=== PATIENT | female | born 1945 | race Caucasian/White ===

== ENCOUNTER → 2016-04-26 | Outpatient (CLI) | payer OTHER | LOC: MMPC 11:11 | PROVIDERS: ATTEND Internal Medicine | DX: F32.4 Major depressive disorder, single episode, in partial remission (principal); K21.9 Gastro-esophageal reflux disease without esophagitis; G47.33 Obstructive sleep apnea (adult) (pediatric); I10 Essential (primary) hypertension; E66.01 Morbid (severe) obesity due to excess calories; F51.01 Primary insomnia | CPT/HCPCS: 99214 ==

== ENCOUNTER → 2016-05-10 | Outpatient (CLI) | payer OTHER | LOC: MMPC 10:00 | PROVIDERS: ATTEND Podiatrist Foot & Ankle Surgery | DX: L85.0 Acquired ichthyosis (principal); L60.3 Nail dystrophy; E66.01 Morbid (severe) obesity due to excess calories; E11.9 Type 2 diabetes mellitus without complications | CPT/HCPCS: 11721 ×2; 99212; G0463 ==

== ENCOUNTER → 2016-05-22 | Outpatient (CLI) | payer OTHER | LOC: MMPC 10:00 | PROVIDERS: ATTEND Specialist | DX: I10 Essential (primary) hypertension (principal); I25.119 Atherosclerotic heart disease of native coronary artery with unspecified angina pectoris | CPT/HCPCS: 99213; G0463 ==

== ENCOUNTER → 2016-06-20 | Outpatient (CLI) | payer OTHER ==
--- NOTE | 2016-06-21 17:58 | DI ---
BILATERAL DIAGNOSTIC MAMMOGRAMS, 06/20/2016 2:28 PM: Clinical History: Breast cancer. Status post right lumpectomy and axillary node dissection for breast cancer in 2002. Prior Exam: 06/01/2013; 06/10/2014; 06/14/2015. Digital breast imaging of both breasts are performed. Exaggerated craniocaudal films are obtained. Breast tissue density is rated as being composed almost entirely of fatty tissue. The right breast is substantially smaller than the left breast secondary to the previous surgery. There is a focus of ar chitectural distortion in the upper outer quadrant posteriorly consistent with the previous lumpectom y. There is no evidence of recurrence of tumor. No new lesion is identified. No abnormal calcificatio ns are noted. Left contour, nipple, and lower axillary region are normal. The patient is status post axillary node dissection on the right side and there is indentation of the skin in the upper-outer qu adrant corresponding to the surgical scar. The right nipple is normal. Follow Up: One year. BIRADS Category: 2. Benign finding. Postsurgical scarring is present in the right upper-outer quadran t corresponding to the biopsy site. There is no evidence of recurrence of tumor. Reading: Benign finding.
== END ==
LOC: MAMMO 14:19
PROVIDERS: ATTEND Physician Assistant
DX: C50.411 Malignant neoplasm of upper-outer quadrant of right female breast (principal); Z98.890 Other specified postprocedural states
CPT/HCPCS: G0204

== ENCOUNTER → 2016-06-29 | Outpatient (CLI) | payer OTHER ==
[2016-06-29 10:42] LABS: BASOPHILS # (AUTO) 0.04 10*3/UL; BASOPHILS % (AUTO) 0.6 % (0-1); EOSINOPHILS % (AUTO) 3.5 % (0-8); HEMATOCRIT 34.3 % (37.0-47.0); HEMOGLOBIN 10.5 g/dL (12.0-16.0); IMM GRAN % (AUTO) 0.2 % (0-5); IMM GRAN# (AUTO) 0.01 10*3/UL; LYMPHOCYTES # (AUTO) 2.33 10*3/uL; LYMPHOCYTES % (AUTO) 36.8 % (10-50); MEAN CORPUSCULAR HEMOGLOBIN 26.7 PG (27-31); MEAN CORPUSCULAR HGB CONC 30.6 g/dL (33-37); MEAN PLATELET VOLUME 11.4 FL (7.4-12.2); MONOCYTES # (AUTO) 0.51 10*3/UL (0.3-0.8); MONOCYTES % (AUTO) 8.1 % (5-15); NEUTROPHILS # (AUTO) 3.22 10*3/UL; NEUTROPHILS % (AUTO) 50.8 % (50-80); RDW COEFFICIENT OF VARIATION 17.9 % (11.5-14.5); RED BLOOD COUNT 3.93 10^6/uL (4.20-5.40); WHITE BLOOD COUNT 6.33 10^3/uL (4.8-10.8)
[2016-06-29 10:43] LABS: HEMOGLOBIN A1C 8.18 % (4.2-6.0); MEAN BLOOD GLUCOSE (CALC) 186.394 mg/dL
[2016-06-29 10:45] LABS: PLATELET MORPHOLOGY COMMENT NORMAL MORPHOLOGY (NORM)
[2016-06-29 10:47] LABS: BILIRUBIN,TOTAL 0.4 mg/dL (0.3-1.2); BUN/CREATININE RATIO 18.57 (6-20); CREATININE 0.7 mg/dL (0.50-1.20); LDL CHOLESTEROL,CALCULATED 46.8 mg/dL; POTASSIUM 4.1 meq/L (3.8-5.2); TOTAL PROTEIN 7.4 g/dL (6.1-8.0)
[2016-06-29 11:20] LABS: CREATININE, URINE 66.8 MG/DL (15-500)
[2016-06-29 11:26] LABS: ERYTHROCYTE SEDIMENTATION RATE 16 MM/HR (0-20)
[2016-06-29 11:45] LABS: FREE T4 (FREE THYROXINE) 1.15 ng/dL (0.93-1.71)
== END ==
LOC: LAB 10:08
PROVIDERS: ATTEND Internal Medicine
DX: E11.9 Type 2 diabetes mellitus without complications (principal); Z79.4 Long term (current) use of insulin; E78.5 Hyperlipidemia, unspecified; E79.0 Hyperuricemia without signs of inflammatory arthritis and tophaceous disease; I10 Essential (primary) hypertension; E03.9 Hypothyroidism, unspecified; K50.90 Crohn's disease, unspecified, without complications
CPT/HCPCS: 36415; 80053; 80061; 82043; 82550; 83036; 84439; 84443; 84550; 85025; 85652

== ENCOUNTER → 2016-07-02 | Outpatient (CLI) | payer OTHER | LOC: MMPC 11:11 | PROVIDERS: ATTEND Internal Medicine | DX: E11.9 Type 2 diabetes mellitus without complications (principal); E03.9 Hypothyroidism, unspecified; D64.9 Anemia, unspecified | CPT/HCPCS: 99214; G0463 ==

== ENCOUNTER → 2016-07-06 | Outpatient (CLI) | payer OTHER | LOC: MMPC 10:00 | PROVIDERS: ATTEND Podiatrist Foot & Ankle Surgery | DX: E11.40 Type 2 diabetes mellitus with diabetic neuropathy, unspecified (principal); R60.0 Localized edema; L60.3 Nail dystrophy; E66.01 Morbid (severe) obesity due to excess calories | CPT/HCPCS: 11721 ×2; G0463 ==

== ENCOUNTER → 2016-07-24 | Outpatient (CLI) | payer OTHER | LOC: MMPC 10:00 | PROVIDERS: ATTEND Specialist | DX: I25.10 Atherosclerotic heart disease of native coronary artery without angina pectoris (principal); G47.33 Obstructive sleep apnea (adult) (pediatric); I10 Essential (primary) hypertension; E66.01 Morbid (severe) obesity due to excess calories; F41.1 Generalized anxiety disorder; E78.5 Hyperlipidemia, unspecified; E03.9 Hypothyroidism, unspecified; D64.9 Anemia, unspecified | CPT/HCPCS: 99212; G0463 ==

== ENCOUNTER 2016-08-10 17:07 | Emergency (ER) | payer OTHER ==
[2016-08-10] MEDS ORDERED: ONDANSETRON 4 MG/2 ML VIAL IVP ONE (17:22)
[2016-08-10] MEDS ORDERED: Sodium Chloride 0.9% 1,000 ML PRIMARY IV ONE (17:22)
[2016-08-10] MEDS ORDERED: KETOROLAC 15 MG/1 ML VIAL IVP ONE (17:22)
[2016-08-10 17:26] VITALS: RESP 16; TEMP 97.5
--- NOTE | 2016-08-10 17:29 | PDOC ---
Female Problem HPI - General Chief Complaint: Genitourinary Complaint Stated Complaint: right flank pain Date Seen by Provider: 08/10/16 Time Seen by Provider: 17:24 Source: POSITIVE: Patient Exam Limitations: POSITIVE: No limitations Nurse's Notes Reviewed & Considered: Yes - History of Present Illness Initial Comments: Patient comes in today with a chief complaint of right flank pain. Patient with right flank pain that has been going on for years and years. Her made her come in today because she was complaining of increasing pain today. She thinks that the reason her pain is gotten worse is because of change in the weather. In addition to the above upon questioning she states she is having shortness of breath and left-sided chest pain that is nonradiating. Her chest pain is described as sharp, and intermittent. Her right flank pain is described as sharp, intermittent, with crescendo decrescendo type quality. She states nothing makes her chest pain better or worse, she does have associated shortness of breath, no cough. She denies any fever chills or sweats, no nausea vomiting or diarrhea, she does have increased frequency of urination, but no dysuria or hematuria. She does have peripheral edema, and is presently on Lasix. She is diabetic, and is presently on Humulin and Lantus insulin. She takes lisinopril and sotalol. Further medications please see nurse's list. Body Location Affected: REPORTS: Chest, Back Timing: REPORTS: Constant, Getting Worse Duration: Unknown Severity: Moderate Quality: REPORTS: "Pain", Sharpness, Stabbing, Throbbing Location of Pain: REPORTS: Right, Flank Pain : REPORTS: Post-Menopausal Sexual History: REPORTS: Active Urinary Symptoms: REPORTS: Frequent Urination Similar Symptoms Previously: No Recent Care Received: REPORTS: Denies Any Prior Injuries Related to Current Complaint?: No - Patient Home Medications Home Medications: Home Medications Ascorbic Acid [Vitamin C] 1,000 mg PO QD 12/13/10 Acetaminophen [Tylenol] 1,000 mg PO PRN PRN 11/14/11 Folic Acid 1 mg ORAL QD #90 tab 04/11/12 Fluticasone Propionate [Flonase] 2 spr NASAL QHS #1 spr 06/17/13 Ipratropium [place] [Atrovent] 2 spr INASL 3-4XD PRN #1 bottle 06/29/13 Centrum Silver Ultra Women Tab 1 each PO DAILY tab 09/29/13 Meclizine HCl 25 mg PO QID PRN PRN 11/12/13 Tamoxifen Citrate 20 mg PO DAILY 11/12/13 Blood-Glucose Meter [Blood Glucose Monitor] 1 each QID #1 each 10/20/14 diphenhydrAMINE HCl [Benadryl] 1 cap PO PRN PRN 06/22/15 Aspirin 325 mg PO DAILY #30 06/24/15 Nitroglycerin SL Tab [Nitrostat SL Tab] 0.4 mg SL ASDIR #20 tab 07/01/15 Mupirocin Calcium [Bactroban] 1 applic TOPICAL BID #1 tube 11/16/15 Cyanocobalamin (Vitamin B-12) [Vitamin B12] 2,500 mcg PO QD tab 02/14/16 Syring W-Ndl,Disp,Insul,0.5 ml [Monoject Insulin Syringe] 1 each QID #360 box 03/07/16 Albuterol Sulfate 1 each NEB Q4-6H #120 vial 04/02/16 Atorvastatin Calcium [Lipitor] 1 tab ORAL QHS #90 tab 04/02/16 Blood Sugar Diagnostic [Blood Glucose Test] 1 each QID #360 strip 04/02/16 Fluticasone/Salmeterol [Advair 100-50 Diskus] 1 puff INH BID #3 puff 04/02/16 Furosemide [Lasix] 2 tab PO BID #360 tab 04/02/16 Insulin Lispro Inj [Humalog Inj] 0 - 12 unit SUBCUT AC HS #3 vial 04/02/16 Lancets [Accu-Chek Fastclix] 1 each QID #360 each 04/02/16 Magnesium Oxide 1 tab PO BID #180 tab 04/02/16 Mesalamine [Pentasa] 1 cap PO BID #180 cap 04/02/16 Potassium Chloride [Klor-Con M20] 2 tab PO BID #360 tab 04/02/16 Losartan Potassium 1 tab PO DAILY #90 tab 04/04/16 Gabapentin 1 cap PO TID #360 tab 04/26/16 Pantoprazole Sodium [Protonix] 1 tab PO BID #60 tab 06/19/16 Escitalopram Oxalate 1 tab PO DAILY #90 tab 07/02/16 Insulin Glargine Inj [Lantus Inj] 70 unit SUBCUT BEDTIME #3 vial 07/02/16 Isosorbide Mononitrate [Isosorbide Mononitrate Er] 1 tab PO DAILY #90 tab Levothyroxine Sodium 1 tab PO QAM #90 tab 07/02/16 - Patient Allergies Allergies/Adverse Reactions: Allergies Allergy/AdvReac Type Severity Reaction Status Date / Time ibuprofen Allergy Severe RASH Verified 08/10/16 17:13 menthol Allergy Severe RASH Verified 08/10/16 17:13 Penicillins Allergy Severe Anaphylaxis Verified 08/10/16 17:13 procaine HCl [From Novocain] Allergy Severe Anaphylaxis Verified 08/10/16 17:13 cefuroxime axetil AdvReac Mild causes Verified 08/10/16 17:13 [From Ceftin] redness and blistering feeling in hands steri strips Allergy NOT Uncoded 08/10/16 17:13 APPLICABLE benzoine AdvReac Intermediate RASH Uncoded 08/10/16 17:13 Past Medical History - heen HEENT History: Macular Degeneration, Cataracts, Hard of Hearing, Dentures/ Partials Additional HEENT History: deaf in R ear, 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 chronic LE swelling. dr rivera states "scarring on the heart, possibly have had a heart attack" Respiratory History: Asthma, Shortness of Breath, Sleep Apnea, Home CPAP Use, Other (please comment) Additional Respiratory History: 2 liters at night when needed Gastrointestinal History: GERD, Crohn's, Other (please comment) Additional Gastrointestinal History: umbilical hernia Genitourinary History: Incontinence Endocrine History: Type 2 Diabetes (insulin), Hypothyroidism Musculoskeletal History: Other (please comment) Prosthesis or Implant: No Additional Musculoskeletal History: SHOULDER PAIN Neurological History: Migraines, Other (please comment) Additional Neurological History: DIABETIC NEUROPATHY. vertigo Blood Disorders: Denies History Psychiatric History: Depression, Anxiety Disorders History of Sexually Transmitted Diseases: No Cancer History: Breast Cancer Treatment / Date(s) of Treatment: currently taking chemo History of MDRO: No History of Other Communicable Diseases: No Alcohol Use: None Substance Use Type: None Previous Surgical History: Yes Type / Date of Surgery: RIGHT CATARACT EXT/R KNEE SCOPE 10/11/15/ T&A/ DAR/ PARTIAL RIGHT MASTECTOMY/ TUBAL X 2/ MASTOIDECTOMY AND PAROTID TUMOR RIGHT X 2/ SENTINEL NODE BX/ MEDIPORT/COLONOSCOPY/EGD Anesthesia Reactions: No Malignant Hyperthermia: No Significant Family History: Heart disease, Cancer, Diabetes, Hypertension, Vascular disease ROS - Limitations ROS Limitations: No Limitations Constitution: REPORTS: Denies Symptoms Cardiovascular: REPORTS: Chest Pain Respiratory: REPORTS: Shortness Of Breath Neurological: REPORTS: Denies Neuro Symptoms Gastrointestinal: REPORTS: Abdominal Pain Endocrine: REPORTS: Denies Symptoms Musculoskeletal: REPORTS: Back Pain, Lower Extremity Swelling Genitourinary: REPORTS: Other (Increased frequency of urination, no hematuria or dysuria.) Eyes: REPORTS: Denies Symptoms ENT: REPORTS: Denies Symptoms Skin: REPORTS: Denies Skin Symptoms Lympathic: REPORTS: Denies Lympathic Symptoms Immunologic: POSITIVE: Denies Symptoms Psychiatric: POSITIVE: Denies Psych Symptoms Female Genitourinary Exam - General Appearance General Appearance: POSITIVE: Alert, Cooperative, No Acute Distress, No Evidence of Trauma - HEENT HEENT: POSITIVE: Head Inspection Nml, Eyes Inspection Nml, Ears Inspection Nml, Nose Inspection Nml, Oral/Dental Inspect. Nml, Pharynx Inspect. Nml, PERRL, EOMI - Neck Neck: POSITIVE: Normal Inspection, No Apparent Injury - Respiratory Respiratory: POSITIVE: No Respiratory Distress, Breath Sounds Normal, Chest Non- Tender - Cardiovascular Cardiovascular: POSITIVE: Regular Rate and Rhythm, Murmur Peripheral Pulses: Radial (R): 3+ Murmur: Systolic: Grade 3 (best heard left sternal border) - Abdomen Abdomen: POSITIVE: Soft, Normal Bowel Sounds, Tenderness (Tenderness right lower quadrant and right flank) - Back Back: POSITIVE: CVA Tenderness (R) - Skin Skin: POSITIVE: Intact, Normal For Race, Warm, Dry, No Rash - Extremities Extremity: Non-Tender: (All Extremities), Normal ROM: (All Extremities), Normal Inspection: (All Extremities), Pelvis Stable: (All Extremities) - Neurological / Psychological Neurological: POSITIVE: Affect Apporpriate, Oriented X3 Female Genitourinary Progress - Results Reviewed by me Xrays/CTs/US Reviewed by me: Yes Discussed with Radiologist: Yes Lab Results Reviewed: Yes Lab Results:: Laboratory Results 08/10/16 Range/Units 17:43 WBC 4.31 L (4.8-10.8) 10^3/uL RBC 3.58 L (4.20-5.40) 10^6/uL Hgb 9.4 L (12.0-16.0) g/dL Hct 31.1 L (37.0-47.0) % MCV 86.9 (81-99) FL MCH 26.3 L (27-31) PG MCHC 30.2 L (33-37) g/dL RDW Std Deviation 53.2 H (39-50) fL RDW Coeff of Georgina 17.6 H (11.5-14.5) % Plt Count 131 L (140-350) 10*3/uL MPV 12.1 (7.4-12.2) FL Immature Gran % (Auto) 0.2 (0-5) % Neut % (Auto) 49.1 L (50-80) % Lymph % (Auto) 40.4 (10-50) % [place] % (Auto) 7.0 (5-15) % Eos % (Auto) 2.8 (0-8) % Baso % (Auto) 0.5 (0-1) % Immature Gran # (Auto) 0.01 10*3/UL Neut # (Auto) 2.12 10*3/UL Lymph # (Auto) 1.74 10*3/uL [place] # (Auto) 0.30 (0.3-0.8) 10*3/UL Eos # (Auto) 0.12 10*3/UL Baso # (Auto) 0.02 10*3/UL WBC Morphology Comment Normal morphology (NORM) Plt Morphology Comment Normal morphology (NORM) RBC Morph Comment Normal morphology (NORM) D-Dimer 1.60 H (0.00-0.59) mg/L Sodium 144 (135-145) meq/L Potassium 3.6 L (3.8-5.2) meq/L Chloride 109 (98-112) meq/L Carbon Dioxide 24 (23-33) meq/L Anion Gap 11 (5-20) BUN 14 (7-22) mg/dL Creatinine 0.7 (0.50-1.20) mg/dL Estimated GFR (>60 ml/min/1.73m(2)) BUN/Creatinine Ratio 20.00 (6-20) Glucose 164 H (78-110) mg/dL Calculated Osmolality 302.0 H (267-292) mOsm/kg Calcium 8.8 (8.7-10.7) mg/dL Magnesium 1.6 (1.6-2.4) mg/dL Total Bilirubin 0.5 (0.3-1.2) mg/dL AST 54 H (8-39) IU/L ALT 41 (9-52) IU/L Alkaline Phosphatase 64 (38-126) IU/L Troponin I < 0.012 (< 0.040) ng/mL Total Protein 6.9 (6.1-8.0) g/dL Albumin 3.5 (3.5-4.8) g/dL Globulin 3.4 (2.50-4.10) g/dL Albumin/Globulin Ratio 1.00 L (1.3-2.0) mg/g TSH 2.22 (0.2700-4.2000) uIU/mL EKG Interpretation:: POSITIVE: Normal Sinus Rhythm - Patient's Progress Pain Medication Addressed: POSITIVE: Yes Re-Examine Time: 20:52 Status: POSITIVE: Improved MDM / ED Course: Patient was examined, an IV started, blood drawn and sent to the lab for studies , radiographic examinations were obtained. Patient received IV Toradol, normal saline, and Zofran. This resulted in resolution of her back pain. Findings: CBC shows an anemia with hemoglobin of 9. Comprehensive metabolic panel shows potassium of 3.6, glucose is elevated in the 160 range, TSH is normal, magnesium is normal. CT scan for PE protocol shows no PE present. Chest x-ray shows no acute cardiopulmonary decompensation. Retroperitoneal ultrasound shows normal kidneys with no hydronephrosis no evidence of infection , no stones. Assessment: Chest pain with normal enzymes and EKG. Back pain, anemia. Plan: Discharge home Tylenol and ibuprofen as needed. Follow-up with primary care physician for her anemia. - Consult Counseled: POSITIVE: Patient, Family, RE: Lab Results, RE: Radiology Results, RE : DX, RE: Need for F/U Patient Care Time - Estimated PCT Patient Care Time (In Minutes): 45 Vital Signs - Recent Vital Signs Vital Signs: Vital Signs (Last 8 hours) Temp Pulse Resp BP Pulse Ox 08/10/16 17:07 97.5 F 87 16 110/96 93 - VS Reviewed Vital Signs Reviewed: Yes Discharge Clinical Impression: Back pain, Chest discomfort Discharge Disposition: Discharged to Home Condition: Fair
[2016-08-10 17:45] LABS: BASOPHILS # (AUTO) 0.02 10*3/UL; BASOPHILS % (AUTO) 0.5 % (0-1); EOSINOPHILS # (AUTO) 0.12 10*3/UL; EOSINOPHILS % (AUTO) 2.8 % (0-8); HEMATOCRIT 31.1 % (37.0-47.0); HEMOGLOBIN 9.4 g/dL (12.0-16.0); LYMPHOCYTES # (AUTO) 1.74 10*3/uL; MEAN CORPUSCULAR HEMOGLOBIN 26.3 PG (27-31); MEAN CORPUSCULAR HGB CONC 30.2 g/dL (33-37); MEAN CORPUSCULAR VOLUME 86.9 FL (81-99); MEAN PLATELET VOLUME 12.1 FL (7.4-12.2); NEUTROPHILS # (AUTO) 2.12 10*3/UL; NEUTROPHILS % (AUTO) 49.1 % (50-80); RED BLOOD COUNT 3.58 10^6/uL (4.20-5.40)
[2016-08-10 17:54] LABS: PLATELET MORPHOLOGY COMMENT NORMAL MORPHOLOGY (NORM); RBC MORPHOLOGY COMMENT NORMAL MORPHOLOGY (NORM); WBC MORPHOLOGY COMMENT NORMAL MORPHOLOGY (NORM)
[2016-08-10 17:58] LABS: CALCIUM 8.8 mg/dL (8.7-10.7); MAGNESIUM 1.6 mg/dL (1.6-2.4); SERUM ALBUMIN 3.5 g/dL (3.5-4.8)
--- NOTE | 2016-08-10 22:09 | DI ---
AP CHEST X-RAY, 08/10/2016 5:22 PM : Clinical History: Chest pain. Previous Exam: 04/19/2016. There is no acute soft tissue or bony abnormality. There is cardiomegaly with CHF. The heart has a "g lobular" configuration most consistent with a cardiomyopathy versus a pericardial effusion. Lungs are clear. Mediastinal structures are normal. There are no pulmonary nodules. Readin. Cardiomegaly with CHF. The globular heart configuration and the presence of CHF are more suggesti ve of a cardiomyopathy. A pericardial effusion cannot be excluded. 2. There is no acute infiltrate or effusion.
--- NOTE | 2016-08-11 02:15 | EKG ---
[address] [address] Measurements Intervals [place] Rate: 85 P: 59 AR: 100 QRS: 42 QRSD: 94 T: 37 QT: 411 QTc: 453 Interpretive Statements SINUS RHYTHM WITH SHORT AR INTERVAL Compared to ECG 04/19/2016 20:31:19 No significant changes Electronically Signed On 08-13-16 10:33:19 MDT by Marvin Loza MD [email or web address]
== END 2016-08-10 21:05 | disposition home or self-care (01) ==
LOC: ER 17:07
DX: M54.5 Low back pain (principal); R07.89 Other chest pain; R10.31 Right lower quadrant pain; R06.02 Shortness of breath; R35.0 Frequency of micturition; I51.7 Cardiomegaly; E11.40 Type 2 diabetes mellitus with diabetic neuropathy, unspecified; Z79.4 Long term (current) use of insulin
CPT/HCPCS: 71010; 71275; 76775; 80053; 83735; 84443; 84484; 85025; 85379; 93005; 93010; 96374; 96375; 99284; J1885; J2405; J7030

== ENCOUNTER → 2016-08-16 | Outpatient (CLI) | payer OTHER ==
[2016-08-16 13:16] LABS: BASOPHILS # (AUTO) 0.02 10*3/UL; BASOPHILS % (AUTO) 0.4 % (0-1); EOSINOPHILS # (AUTO) 0.11 10*3/UL; EOSINOPHILS % (AUTO) 2.1 % (0-8); HEMATOCRIT 33.6 % (37.0-47.0); HEMOGLOBIN 10.1 g/dL (12.0-16.0); LYMPHOCYTES # (AUTO) 2.08 10*3/uL; MEAN CORPUSCULAR HEMOGLOBIN 26.1 PG (27-31); MEAN CORPUSCULAR HGB CONC 30.1 g/dL (33-37); MEAN CORPUSCULAR VOLUME 86.8 FL (81-99); MEAN PLATELET VOLUME 12.2 FL (7.4-12.2); MONOCYTES % (AUTO) 7.6 % (5-15); NEUTROPHILS # (AUTO) 2.66 10*3/UL; NEUTROPHILS % (AUTO) 50.2 % (50-80); RED BLOOD COUNT 3.87 10^6/uL (4.20-5.40)
[2016-08-16 13:18] LABS: HEMOGLOBIN A1C 7.85 % (4.2-6.0)
[2016-08-16 13:23] LABS: PLATELET MORPHOLOGY COMMENT NORMAL MORPHOLOGY (NORM); RBC MORPHOLOGY COMMENT NORMAL MORPHOLOGY (NORM); WBC MORPHOLOGY COMMENT NORMAL MORPHOLOGY (NORM)
[2016-08-16 13:30] LABS: CREATININE, URINE 26.2 MG/DL (15-500)
[2016-08-17 14:26] LABS: A/G RATIO 0.77 (()); ALB PEP SER 3.1 g/dL (3.4-4.7); ALP1 GLOB 0.4 g/dL (0.1-0.3); ALP2 GLOB 0.9 g/dL (0.6-1.0); GAMMA GLOBS 1.7 g/dL (0.6-1.6)
== END ==
LOC: MOB LAB 12:02
PROVIDERS: ATTEND Internal Medicine
DX: E11.9 Type 2 diabetes mellitus without complications (principal); Z79.4 Long term (current) use of insulin; E03.9 Hypothyroidism, unspecified; D64.9 Anemia, unspecified; I10 Essential (primary) hypertension; I50.42 Chronic combined systolic (congestive) and diastolic (congestive) heart failure; F32.4 Major depressive disorder, single episode, in partial remission
CPT/HCPCS: 36415; 82043; 82607; 82728; 83010; 83036; 83540; 83550; 83880; 83921; 84155; 84165; 85025; 85045

== ENCOUNTER 2016-08-21 14:00 | Emergency (ER) | payer OTHER ==
--- NOTE | 2016-08-21 14:49 | PDOC ---
Back Pain / Injury HPI - General Chief Complaint: Neck / Back Complaint Stated Complaint: LOW BACK PAIN/FATIGUE/NAUSEA/SLEEPY Date Seen by Provider: 08/21/16 Time Seen by Provider: 14:44 Source: Patient Exam Limitations: POSITIVE: No limitations Nurse's Notes Reviewed & Considered: Yes - History of Present Illness Initial Comments: Patient comes in today with a chief complaint of low back pain. Patient was directed to the emergency department by her primary care physician with complaints of low back pain. She is presently on Lasix and potassium and had her Lasix increased 120 mg by mouth twice a day. Her pain is predominantly in the lower lumbar region bilaterally with no radiation. She denies any headache , she does have shortness of breath that is chronic in nature, no cough, no chest pain, she does have nausea and diarrhea but no vomiting. Denies any fevers chills or sweats, no rashes. Body Location Affected: REPORTS: Back Timing: REPORTS: Constant Duration: Unknown Severity: Moderate Quality: REPORTS: "Pain", Stabbing (Worse with movement), Throbbing Context: REPORTS: Turning Location at Time of Onset: REPORTS: Home Modifying Factors: improves with: Nothing, Movement Associated Symptoms: REPORTS: Back pain, Nausea, Diarrhea Similar Symptoms Previously: Yes Recent Care Received: REPORTS: Denies Any Prior Injuries Related to Current Complaint?: No - Patient Home Medications Home Medications: Home Medications Ascorbic Acid [Vitamin C] 1,000 mg PO QD 12/13/10 Acetaminophen [Tylenol] 1,000 mg PO PRN PRN 11/14/11 Folic Acid 1 mg ORAL QD #90 tab 04/11/12 Fluticasone Propionate [Flonase] 2 spr NASAL QHS #1 spr 06/17/13 Ipratropium [place] [Atrovent] 2 spr INASL 3-4XD PRN #1 bottle 06/29/13 Meclizine HCl 25 mg PO QID PRN PRN 11/12/13 Tamoxifen Citrate 20 mg PO DAILY 11/12/13 Blood-Glucose Meter [Blood Glucose Monitor] 1 each MC QID #1 each 10/20/14 diphenhydrAMINE HCl [Benadryl] 1 cap PO PRN PRN 06/22/15 Aspirin 325 mg PO DAILY #30 06/24/15 Nitroglycerin SL Tab [Nitrostat SL Tab] 0.4 mg SL ASDIR #20 tab 07/01/15 Cyanocobalamin (Vitamin B-12) [Vitamin B12] 2,500 mcg PO QD tab 02/14/16 Syring W-Ndl,Disp,Insul,0.5 ml [Monoject Insulin Syringe] 1 each QID #360 box 03/07/16 Albuterol Sulfate 1 each NEB Q4-6H #120 vial 04/02/16 Atorvastatin Calcium [Lipitor] 1 tab ORAL QHS #90 tab 04/02/16 Blood Sugar Diagnostic [Blood Glucose Test] 1 each QID #360 strip 04/02/16 Insulin Lispro Inj [Humalog Inj] 0 - 12 unit SUBCUT AC HS #3 vial 04/02/16 Lancets [Accu-Chek Fastclix] 1 each QID #360 each 04/02/16 Magnesium Oxide 1 tab PO BID #180 tab 04/02/16 Mesalamine [Pentasa] 1 cap PO BID #180 cap 04/02/16 Losartan Potassium 1 tab PO DAILY #90 tab 04/04/16 Gabapentin 1 cap PO TID #360 tab 04/26/16 Pantoprazole Sodium [Protonix] 1 tab PO BID #60 tab 06/19/16 Insulin Glargine Inj [Lantus Inj] 70 unit SUBCUT BEDTIME #3 vial 07/02/16 Ferrous Gluconate [Fergon] 1 tab PO QD #90 tab 08/16/16 Furosemide [Lasix] 3 tab PO BID #360 tab 08/16/16 Potassium Chloride [Klor-Con M20] 3 tab PO BID #360 tab 08/16/16 Escitalopram Oxalate 1 tab PO DAILY #90 tab 08/17/16 Isosorbide Mononitrate [Isosorbide Mononitrate Er] 1 tab PO DAILY #90 tab Levothyroxine Sodium 1 tab PO QAM #90 tab 08/17/16 Gabapentin 600 mg PO BEDTIME 08/21/16 - Patient Allergies Allergies/Adverse Reactions: Allergies Allergy/AdvReac Type Severity Reaction Status Date / Time ibuprofen Allergy Severe RASH Verified 08/21/16 14:09 menthol Allergy Severe RASH Verified 08/21/16 14:09 Penicillins Allergy Severe Anaphylaxis Verified 08/21/16 14:09 procaine HCl [From Novocain] Allergy Severe Anaphylaxis Verified 08/21/16 14:09 cefuroxime axetil AdvReac Mild causes Verified 08/21/16 14:09 [From Ceftin] redness and blistering feeling in hands steri strips Allergy NOT Uncoded 08/21/16 14:09 APPLICABLE benzoine AdvReac Intermediate RASH Uncoded 08/21/16 14:09 Past Medical History - heen HEENT History: Macular Degeneration, Cataracts, Hard of Hearing, Dentures/ Partials Additional HEENT History: deaf in R ear, 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 chronic LE swelling. dr rivera states "scarring on the heart, possibly have had a heart attack" Respiratory History: Asthma, Shortness of Breath, Sleep Apnea, Home CPAP Use, Other (please comment) Additional Respiratory History: 2 liters at night when needed Gastrointestinal History: GERD, Crohn's, Other (please comment) Additional Gastrointestinal History: umbilical hernia Genitourinary History: Incontinence Endocrine History: Type 2 Diabetes (insulin), Hypothyroidism Musculoskeletal History: Other (please comment) Prosthesis or Implant: No Additional Musculoskeletal History: SHOULDER PAIN Neurological History: Migraines, Other (please comment) Additional Neurological History: DIABETIC NEUROPATHY. vertigo Blood Disorders: Denies History Psychiatric History: Depression, Anxiety Disorders History of Sexually Transmitted Diseases: No Cancer History: Breast Cancer Treatment / Date(s) of Treatment: currently taking chemo History of MDRO: No History of Other Communicable Diseases: No Alcohol Use: None Substance Use Type: None Previous Surgical History: Yes Type / Date of Surgery: RIGHT CATARACT EXT/R KNEE SCOPE 10/10// T&A/ DAR/ PARTIAL RIGHT MASTECTOMY/ TUBAL X 2/ MASTOIDECTOMY AND PAROTID TUMOR RIGHT X 2/ SENTINEL NODE BX/ MEDIPORT/COLONOSCOPY/EGD Anesthesia Reactions: No Malignant Hyperthermia: No Significant Family History: Heart disease, Cancer, Diabetes, Hypertension, Vascular disease ROS - Limitations ROS Limitations: No Limitations Constitution: REPORTS: Denies Symptoms Cardiovascular: REPORTS: Denies Cardiac Symptoms Respiratory: REPORTS: Shortness Of Breath Neurological: REPORTS: Denies Neuro Symptoms Gastrointestinal: REPORTS: Nausea, Diarrhea Endocrine: REPORTS: Denies Symptoms Musculoskeletal: REPORTS: Back Pain (Lumbar and sacral region) Genitourinary: REPORTS: Denies Symptoms Eyes: REPORTS: Denies Symptoms ENT: REPORTS: Denies Symptoms Skin: REPORTS: Denies Skin Symptoms Lympathic: REPORTS: Denies Lympathic Symptoms Immunologic: POSITIVE: Denies Symptoms Psychiatric: POSITIVE: Denies Psych Symptoms Back Physical Assessment - General Appearance General Appearance: REPORTS: Alert, Cooperative, No Acute Distress, No Evidence of Trauma - HEENT HEENT: POSITIVE: Head Inspection Nml, Eyes Inspection Nml, Ears Inspection Nml, Nose Inspection Nml, PERRL, EOMI - Pupil Size Pupil Size: 5 mm: Bilateral - Neck Neck: POSITIVE: Non Tender, Painless ROM, Trachea Midline - Respiratory / CVS Respiratory / CVS: POSITIVE: Chest Non Tender, No Ecchymosis, Breath Sounds Normal, No Respiratory Distress, Heart Sounds Normal, Regular Rate/Rhythm - Abdomen Abdomen: Soft: (All Quadrants), Normal Bowel Sounds: (All Quadrants), Denies Tenderness: (All Quadrants) - Back Back: REPORTS: No Vertebral Tenderness, Other (Tenderness to palpation over the lumbar sacral junction) - Skin Skin: REPORTS: Intact, Normal For Race, Warm, Dry, No Rash - Extremities Extremity Assessment: Non-Tender: (ALL), Normal ROM: (ALL), Normal Inspection: ( ALL), Swelling: (RLE), (LLE) (past to pitting edema in her lower extremities) Musculoskeletal: REPORTS: Back Pain, Lower Extremity Swelling - Neurological / Psychological Neuro / Psych: POSITIVE: Oriented X3, Motor Normal, Sensation Normal, Mood Appropriate, Affect Appropriate Back Progress - Results Reviewed by me Xrays/CTs/US Reviewed: Yes Discussed with Radiologist: No Lab Results Reviewed: Yes Lab Results:: Laboratory Results 08/21/16 Range/Units 15:38 WBC 7.67 (4.8-10.8) 10^3/uL RBC 4.46 (4.20-5.40) 10^6/uL Hgb 11.6 L (12.0-16.0) g/dL Hct 37.6 (37.0-47.0) % MCV 84.3 (81-99) FL MCH 26.0 L (27-31) PG MCHC 30.9 L (33-37) g/dL RDW Std Deviation 53.0 H (39-50) fL RDW Coeff of Georgina 17.3 H (11.5-14.5) % Plt Count 207 (140-350) 10*3/uL MPV 11.7 (7.4-12.2) FL Immature Gran % (Auto) 0.3 (0-5) % Neut % (Auto) 51.9 (50-80) % Lymph % (Auto) 36.2 (10-50) % Daw[place] % (Auto) 9.1 (5-15) % Eos % (Auto) 2.1 (0-8) % Baso % (Auto) 0.4 (0-1) % Immature Gran # (Auto) 0.02 10*3/UL Neut # (Auto) 3.98 10*3/UL Lymph # (Auto) 2.78 10*3/uL Dawes # (Auto) 0.70 (0.3-0.8) 10*3/UL Eos # (Auto) 0.16 10*3/UL Baso # (Auto) 0.03 10*3/UL WBC Morphology Comment Normal morphology (NORM) Plt Morphology Comment Normal morphology (NORM) RBC Morph Comment Normal morphology (NORM) Sodium 136 (135-145) meq/L Potassium 4.7 (3.8-5.2) meq/L Chloride 96 L (98-112) meq/L Carbon Dioxide 25 (23-33) meq/L Anion Gap 15 (5-20) BUN 27 H (7-22) mg/dL Creatinine 0.9 (0.50-1.20) mg/dL Estimated GFR (>60 ml/min/1.73m(2)) BUN/Creatinine Ratio 30.00 H (6-20) Glucose 245 H (78-110) mg/dL Calculated Osmolality 294.0 H (267-292) mOsm/kg Calcium 9.7 (8.7-10.7) mg/dL Magnesium 1.6 (1.6-2.4) mg/dL Total Bilirubin 0.7 (0.3-1.2) mg/dL AST 127 H (8-39) IU/L ALT 112 H (9-52) IU/L Alkaline Phosphatase 78 (38-126) IU/L NT-Pro-B Natriuret Pep 140 H (0-125) PG/ML Total Protein 8.4 H (6.1-8.0) g/dL Albumin 4.1 (3.5-4.8) g/dL Globulin 4.3 H (2.50-4.10) g/dL Albumin/Globulin Ratio 0.90 L (1.3-2.0) mg/g Ur Collection Type Clean catch urine Urine Color Yellow Urine Clarity Clear (CLEAR) Urine pH 5.0 (5.0-8.5) Ur Specific [place] <=1.005 (1.005-1.030) Urine Protein Negative (NEG) mg/dl Urine Glucose (UA) Negative (NEG) mg/dL Urine Ketones Negative (NEG) Urine Occult Blood Negative (NEG) Urine Nitrate Negative (NEG) Urine Bilirubin Negative (NEG) Urine Urobilinogen 0.2 (0.2) EU/dL Ur Leukocyte Esterase Negative (NEG) Ur Culture Indicated? Culture not set - Patient's Progress Pain Medication Addressed: POSITIVE: Yes Re-Examine Time: 16:33 Status: POSITIVE: Improved MDM / ED Course: Patient was examined, an IV started, blood drawn and sent to the lab for studies , radiographic examinations were obtained. Findings: X-rays of her lumbar spine, per my interpretation, show no acute osseous abnormalities. CBC is unremarkable, comprehensive metabolic panel shows normal creatinine, urinalysis is negative. Next Assessment: Lower back pain. Plan: Discharge home, [id number] pain medications, follow-up with her primary care physician. Patient Care Time - Estimated PCT Patient Care Time (In Minutes): 30 Vital Signs - Recent Vital Signs Vital Signs: Vital Signs (Last 8 hours) Temp Pulse Resp BP Pulse Ox 08/21/16 14:00 96.3 F L 89 19 153/77 93 - VS Reviewed Vital Signs Reviewed: Yes Discharge Clinical Impression: Acute low back pain Discharge Disposition: Discharged to Home Condition: Stable Patient Instructions Given at Discharge: Back Pain (ED)
[2016-08-21] MEDS ORDERED: MORPHINE SULFATE 2 MG/1 ML IVP ONE (14:50)
[2016-08-21] MEDS ORDERED: ONDANSETRON 4 MG/2 ML VIAL IVP ONE (14:50)
[2016-08-21] MEDS ORDERED: Sodium Chloride 0.9% 1,000 ML PRIMARY IV ONE (14:50)
[2016-08-21 15:05] VITALS: RESP 19; TEMP 96.3
[2016-08-21 15:43] LABS: BASOPHILS # (AUTO) 0.03 10*3/UL; BASOPHILS % (AUTO) 0.4 % (0-1); EOSINOPHILS # (AUTO) 0.16 10*3/UL; EOSINOPHILS % (AUTO) 2.1 % (0-8); HEMATOCRIT 37.6 % (37.0-47.0); HEMOGLOBIN 11.6 g/dL (12.0-16.0); LYMPHOCYTES # (AUTO) 2.78 10*3/uL; MEAN CORPUSCULAR HGB CONC 30.9 g/dL (33-37); MEAN CORPUSCULAR VOLUME 84.3 FL (81-99); MEAN PLATELET VOLUME 11.7 FL (7.4-12.2); MONOCYTES % (AUTO) 9.1 % (5-15); NEUTROPHILS # (AUTO) 3.98 10*3/UL; NEUTROPHILS % (AUTO) 51.9 % (50-80); RED BLOOD COUNT 4.46 10^6/uL (4.20-5.40)
[2016-08-21 15:49] LABS: BILIRUBIN,URINE NEGATIVE (NEG); COLOR,URINE YELLOW; GLUCOSE, URINE (UA) NEGATIVE (NEG); NITRATE,URINE NEGATIVE (NEG); OCCULT BLOOD,URINE NEGATIVE (NEG); PROTEIN,URINE NEGATIVE (NEG); UROBILINOGEN,URINE 0.2 EU/dL (0.2)
[2016-08-21 15:51] LABS: CALCIUM 9.7 mg/dL (8.7-10.7); MAGNESIUM 1.6 mg/dL (1.6-2.4); SERUM ALBUMIN 4.1 g/dL (3.5-4.8)
[2016-08-21 15:54] LABS: PLATELET MORPHOLOGY COMMENT NORMAL MORPHOLOGY (NORM); RBC MORPHOLOGY COMMENT NORMAL MORPHOLOGY (NORM); WBC MORPHOLOGY COMMENT NORMAL MORPHOLOGY (NORM)
[2016-08-21 15:56] LABS: CLARITY,URINE CLEAR (CLEAR); URINE SAMPLE TYPE CLEAN CATCH URINE
--- NOTE | 2016-08-21 16:51 | DI ---
XR L-SPINE MIN 4 VW,08/21/2016 2:50 PM: Clinical History: Pain Previous Exam: May 23, 2012 Findings: AP, lateral and oblique views of the lumbar spine are obtained, and demonstrate grade 1 anterolisthes is of L4 on L5. Facet hypertrophy is noted. Peripheral vascular calcifications are seen. A nonobstructive bowel gas pattern is noted. No pathologic calcifications are seen. Patient is status post cholecystectomy. Impression: Stable diffuse degenerative changes of the lumbar spine without fractures.
== END 2016-08-21 17:00 | disposition home or self-care (01) ==
LOC: ER 14:00
DX: M54.5 Low back pain (principal); R06.02 Shortness of breath; R19.7 Diarrhea, unspecified; R11.0 Nausea; E11.40 Type 2 diabetes mellitus with diabetic neuropathy, unspecified; Z79.4 Long term (current) use of insulin
CPT/HCPCS: 72110; 80053; 81003; 83735; 83880; 85025; 96374; 96375; 99283; J2270; J2405; J7030

== ENCOUNTER → 2016-09-13 | Outpatient (CLI) | payer OTHER | LOC: MMPC 10:00 | PROVIDERS: ATTEND Podiatrist Foot & Ankle Surgery | DX: L60.3 Nail dystrophy (principal); R60.0 Localized edema; G62.9 Polyneuropathy, unspecified; E66.01 Morbid (severe) obesity due to excess calories; E11.9 Type 2 diabetes mellitus without complications | CPT/HCPCS: 11721 ×2; G0463 ==

== ENCOUNTER → 2016-09-25 | Outpatient (CLI) | payer OTHER ==
[2016-09-25 12:32] LABS: BASOPHILS # (AUTO) 0.04 10*3/UL; BASOPHILS % (AUTO) 0.7 % (0-1); EOSINOPHILS # (AUTO) 0.24 10*3/UL; EOSINOPHILS % (AUTO) 4.1 % (0-8); HEMATOCRIT 35.5 % (37.0-47.0); HEMOGLOBIN 11.1 g/dL (12.0-16.0); LYMPHOCYTES # (AUTO) 2.64 10*3/uL; MEAN CORPUSCULAR HEMOGLOBIN 27.3 PG (27-31); MEAN CORPUSCULAR HGB CONC 31.3 g/dL (33-37); MEAN CORPUSCULAR VOLUME 87.2 FL (81-99); MEAN PLATELET VOLUME 11.2 FL (7.4-12.2); MONOCYTES # (AUTO) 0.38 10*3/UL (0.3-0.8); MONOCYTES % (AUTO) 6.4 % (5-15); NEUTROPHILS # (AUTO) 2.59 10*3/UL; NEUTROPHILS % (AUTO) 43.9 % (50-80); RED BLOOD COUNT 4.07 10^6/uL (4.20-5.40)
[2016-09-25 12:33] LABS: PLATELET MORPHOLOGY COMMENT NORMAL MORPHOLOGY (NORM); RBC MORPHOLOGY COMMENT NORMAL MORPHOLOGY (NORM); WBC MORPHOLOGY COMMENT NORMAL MORPHOLOGY (NORM)
[2016-09-25 12:49] LABS: HEMOGLOBIN A1C 7.71 % (4.2-6.0)
[2016-09-25 12:51] LABS: CREATININE, URINE 103.1 MG/DL (15-500)
[2016-09-25 13:02] LABS: BUN/CREATININE RATIO 34.28 (6-20)
== END ==
LOC: LAB 12:07
PROVIDERS: ATTEND Internal Medicine
DX: E11.9 Type 2 diabetes mellitus without complications (principal); Z79.4 Long term (current) use of insulin; I10 Essential (primary) hypertension; D64.9 Anemia, unspecified; E03.9 Hypothyroidism, unspecified; I50.42 Chronic combined systolic (congestive) and diastolic (congestive) heart failure
CPT/HCPCS: 36415; 80048; 82043; 82607; 82728; 83010; 83036; 83540; 83550; 83880; 83921; 84443; 85025; 85045

== ENCOUNTER → 2016-09-26 | Outpatient (CLI) | payer OTHER | LOC: MMPC 11:11 | PROVIDERS: ATTEND Internal Medicine | DX: I50.42 Chronic combined systolic (congestive) and diastolic (congestive) heart failure (principal); D64.9 Anemia, unspecified; G47.33 Obstructive sleep apnea (adult) (pediatric); E03.9 Hypothyroidism, unspecified; I10 Essential (primary) hypertension; E11.9 Type 2 diabetes mellitus without complications | CPT/HCPCS: 99214; G0463 ==

== ENCOUNTER → 2016-10-02 | Outpatient (CLI) | payer OTHER | LOC: MMPC 10:00 | PROVIDERS: ATTEND Specialist | DX: I11.9 Hypertensive heart disease without heart failure (principal); I25.10 Atherosclerotic heart disease of native coronary artery without angina pectoris; I05.2 Rheumatic mitral stenosis with insufficiency; E78.5 Hyperlipidemia, unspecified; E11.9 Type 2 diabetes mellitus without complications; E66.9 Obesity, unspecified; D64.9 Anemia, unspecified ==

== ENCOUNTER → 2016-10-04 | Outpatient (CLI) | payer OTHER | LOC: MMPC 09:00 | DX: J20.9 Acute bronchitis, unspecified (principal); J98.8 Other specified respiratory disorders; Z87.891 Personal history of nicotine dependence | CPT/HCPCS: 99213; G0463 ==

== ENCOUNTER 2016-10-07 06:26 | Observation (INO) | payer OTHER ==
[2016-10-07] MEDS ORDERED: NORMAL SALINE 10 ML SYRINGE FLUSH IVP PRN ×2 (06:45→11:46)
[2016-10-07] MEDS ORDERED: ASPIRIN 81 MG (BABY) CHEWABLE TABLET PO ONE (06:45)
[2016-10-07] MEDS ORDERED: Sodium Chloride 0.9% 1,000 ML PRIMARY IV ONE (06:45)
--- NOTE | 2016-10-07 06:49 | EKG ---
[address] [address] Measurements Intervals [place] Rate: 87 P: 70 VT: 116 QRS: 36 QRSD: 94 T: 33 QT: 377 QTc: 422 Interpretive Statements SINUS RHYTHM WITH SHORT VT INTERVAL Compared to ECG 08/10/2016 17:27:41 No significant changes Electronically Signed On 10-07-16 17:48:57 MDT by Chon Pina [email or web address]
[2016-10-07] MEDS: NITROGLYCERIN 0.4 MG SL TAB (BOTTLE OF 3) SL PRN ×2 (07:01→07:13)
[2016-10-07 07:12] LABS: BASOPHILS # (AUTO) 0.03 10*3/UL; BASOPHILS % (AUTO) 0.7 % (0-1); EOSINOPHILS % (AUTO) 2.3 % (0-8); HEMOGLOBIN 10.4 g/dL (12.0-16.0); LYMPHOCYTES # (AUTO) 1.65 10*3/uL; MEAN CORPUSCULAR HEMOGLOBIN 27.4 PG (27-31); MEAN CORPUSCULAR HGB CONC 31.5 g/dL (33-37); MEAN CORPUSCULAR VOLUME 87.1 FL (81-99); MEAN PLATELET VOLUME 11.4 FL (7.4-12.2); MONOCYTES # (AUTO) 0.51 10*3/UL (0.3-0.8); MONOCYTES % (AUTO) 11.9 % (5-15); NEUTROPHILS # (AUTO) 1.98 10*3/UL; NEUTROPHILS % (AUTO) 46.3 % (50-80); RED BLOOD COUNT 3.79 10^6/uL (4.20-5.40)
[2016-10-07 07:16] LABS: PLATELET MORPHOLOGY COMMENT NORMAL MORPHOLOGY (NORM); RBC MORPHOLOGY COMMENT NORMAL MORPHOLOGY (NORM); WBC MORPHOLOGY COMMENT NORMAL MORPHOLOGY (NORM)
[2016-10-07 07:21] LABS: BUN/CREATININE RATIO 27.14 (6-20); CALCIUM 8.9 mg/dL (8.7-10.7); SERUM ALBUMIN 3.4 g/dL (3.5-4.8)
[2016-10-07 07:41] LABS: CREATINE KINASE MB 2.44 NG/ML (0.00-5.00)
[2016-10-07 07:43] LABS: TROPONIN I < 0.012 ng/mL (< 0.040)
--- NOTE | 2016-10-07 08:51 | PDOC ---
Chest Pain HPI - General Chief Complaint: Chest Pain Stated Complaint: LEFT SIDED CHEST PAIN Date Seen by Provider: 10/07/16 Time Seen by Provider: 06:35 Source: Patient, Other (Son) Exam Limitations: POSITIVE: No limitations Treatment Prior to Arrival: REPORTS: Nitroglycerin Nurse's Notes Reviewed & Considered: Yes - History of Present Illness Initial Comments: The patient is a 70-year-old female. She is brought to the emergency room by her son, who is staying with her last night. She states that around 3 AM she experienced left-sided chest pain, mostly with cough. Patient has had a cough for the past 6 days and was seen at the urgent care 2 days ago and was started on a Z-Johny. She states she has a history of "murmur and leaky valve". She has a history of diabetes mellitus for which she takes Humalog on a sliding scale and also takes 70 units of Lantus at night. She states that she has been advised that she "may have had a heart attack "in the past and does take nitroglycerin on a when necessary basis, although she does not use this regularly. She did take some nitroglycerin sublingually around 3 AM, with no improvement. She is on home oxygen. She has a history of having had right breast cancer and is presently on tamoxifen. Somewhat short of breath. 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) Severity: Moderate Persistent/Worse since (time): 03:00 Context: REPORTS: Sleep Quality: REPORTS: "Pain", Sharpness Radiation: REPORTS: None Associated Symptoms: REPORTS: Productive Cough (sputum) (Productive of mucoid sputum) Modifying Factors: improves with: None Reported Similar Symptoms Previously: No Recently seen/treated/hospitalized: Yes (seen in urgent care clinic for cough 6 days ago; see above) Any Prior Injuries Related to Current Complaint?: No - Patient Home Medications Home Medications: Home Medications Ascorbic Acid [Vitamin C] 1,000 mg PO QD 12/13/10 Acetaminophen [Tylenol] 1,000 mg PO PRN PRN 11/14/11 Folic Acid 1 mg ORAL QD #90 tab 04/11/12 Fluticasone Propionate [Flonase] 2 spr NASAL QHS #1 spr 06/17/13 Ipratropium [place] [Atrovent] 2 spr INASL 3-4XD PRN #1 bottle 06/29/13 Meclizine HCl 25 mg PO QID PRN PRN 11/12/13 Tamoxifen Citrate 20 mg PO DAILY 11/12/13 Blood-Glucose Meter [Blood Glucose Monitor] 1 each QID #1 each 10/20/14 diphenhydrAMINE HCl [Benadryl] 1 cap PO PRN PRN 06/22/15 Aspirin 325 mg PO DAILY #30 06/24/15 Nitroglycerin SL Tab [Nitrostat SL Tab] 0.4 mg SL ASDIR #20 tab 07/01/15 Cyanocobalamin (Vitamin B-12) [Vitamin B12] 2,500 mcg PO QD tab 02/14/16 Albuterol Sulfate 1 each NEB Q4-6H #120 vial 04/02/16 Atorvastatin Calcium [Lipitor] 1 tab ORAL QHS #90 tab 04/02/16 Blood Sugar Diagnostic [Blood Glucose Test] 1 each QID #360 strip 04/02/16 Insulin Lispro Inj [Humalog Inj] 0 - 12 unit SUBCUT AC HS #3 vial 04/02/16 Lancets [Accu-Chek Fastclix] 1 each QID #360 each 04/02/16 Magnesium Oxide 1 tab PO BID #180 tab 04/02/16 Mesalamine [Pentasa] 1 cap PO BID #180 cap 04/02/16 Losartan Potassium 1 tab PO DAILY #90 tab 04/04/16 Gabapentin 1 cap PO TID #360 tab 04/26/16 Pantoprazole Sodium [Protonix] 1 tab PO BID #60 tab 06/19/16 Insulin Glargine Inj [Lantus Inj] 70 unit SUBCUT BEDTIME #3 vial 07/02/16 Ferrous Gluconate [Fergon] 1 tab PO QD #90 tab 08/16/16 Furosemide [Lasix] 3 tab PO BID #360 tab 08/16/16 Potassium Chloride [Klor-Con M20] 3 tab PO BID #360 tab 08/16/16 Escitalopram Oxalate 1 tab PO DAILY #90 tab 08/17/16 Isosorbide Mononitrate [Isosorbide Mononitrate Er] 1 tab PO DAILY #90 tab Levothyroxine Sodium 1 tab PO QAM #90 tab 08/17/16 Gabapentin 600 mg PO BEDTIME 08/21/16 Syring W-Ndl,Disp,Insul,0.5 ml [Monoject Insulin Syringe] 1 each MC QID #360 box 09/12/16 Syring W-Ndl,Disp,Insul,0.5 ml [Monoject Insulin Syringe] 1 each MC QID #40 unit 09/12/16 Diclofenac Sodium 4 gm TP QID PRN #1 tube 10/01/16 Azithromycin 1 packet PO QD #6 tab 10/04/16 Guaifenesin [Mucinex] 600 mg PO BID 10/07/16 - Patient Allergies Allergies/Adverse Reactions: Allergies Allergy/AdvReac Type Severity Reaction Status Date / Time ibuprofen Allergy Severe RASH Verified 10/07/16 06:47 menthol Allergy Severe RASH Verified 10/07/16 06:47 Penicillins Allergy Severe Anaphylaxis Verified 10/07/16 06:47 procaine HCl [From Novocain] Allergy Severe Anaphylaxis Verified 10/07/16 06:47 cefuroxime axetil AdvReac Mild causes Verified 10/07/16 06:47 [From Ceftin] redness and blistering feeling in hands steri strips Allergy NOT Uncoded 10/07/16 06:47 APPLICABLE benzoine AdvReac Intermediate RASH Uncoded 10/07/16 06:47 Past Medical History - heen HEENT History: Macular Degeneration, Cataracts, Hard of Hearing, Dentures/ Partials Additional HEENT History: deaf in R ear, 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 chronic LE swelling. dr rivera states "scarring on the heart, possibly have had a heart attack" Respiratory History: Asthma, Shortness of Breath, Sleep Apnea, Home CPAP Use, Other (please comment) Additional Respiratory History: 2 liters at night when needed Gastrointestinal History: GERD, Crohn's, Other (please comment) Additional Gastrointestinal History: umbilical hernia Genitourinary History: Incontinence Endocrine History: Type 2 Diabetes (insulin), Hypothyroidism Musculoskeletal History: Other (please comment) Prosthesis or Implant: No Additional Musculoskeletal History: SHOULDER PAIN Neurological History: Migraines, Other (please comment) Additional Neurological History: DIABETIC NEUROPATHY. vertigo Blood Disorders: Denies History Psychiatric History: Depression, Anxiety Disorders History of Sexually Transmitted Diseases: No Cancer History: Breast Cancer Treatment / Date(s) of Treatment: currently taking tamoxifen In Past Year Been Physically Harmed or Verbally Threatened: No History of MDRO: No History of Other Communicable Diseases: No Tobacco Use: Former Smoker Alcohol Use: None Substance Use Type: None Previous Surgical History: Yes Type / Date of Surgery: RIGHT CATARACT EXT/R KNEE SCOPE 10/10// T&A/ DAR/ PARTIAL RIGHT MASTECTOMY/ TUBAL X 2/ MASTOIDECTOMY AND PAROTID TUMOR RIGHT X 2/ SENTINEL NODE BX/ MEDIPORT/COLONOSCOPY/EGD Anesthesia Reactions: No Malignant Hyperthermia: No Significant Family History: Heart disease, Cancer, Diabetes, Hypertension, Vascular disease Past Medical History Reviewed: Reviewed - No Changes ROS - Limitations ROS Limitations: No Limitations Constitution: REPORTS: Denies Symptoms Cardiovascular: REPORTS: Chest Pain Respiratory: REPORTS: Cough Productive (Of mucoid sputum), Hurts To Breathe, Shortness Of Breath Neurological: REPORTS: Denies Neuro Symptoms Gastrointestinal: REPORTS: Denies GI Symptoms Endocrine: REPORTS: Denies Symptoms Musculoskeletal: REPORTS: Denies MS Symptoms Genitourinary: REPORTS: Denies Symptoms Eyes: REPORTS: Denies Symptoms ENT: REPORTS: Denies Symptoms Skin: REPORTS: Denies Skin Symptoms Lympathic: REPORTS: Denies Lympathic Symptoms Immunologic: POSITIVE: Denies Symptoms Psychiatric: POSITIVE: Denies Psych Symptoms Chest Pain PE - General Appearance General Appearance: REPORTS: Alert, Cooperative, No Acute Distress, No Evidence of Trauma, Other (Morbidly obese) - HEENT HEENT: POSITIVE: Head Inspection Nml, Eyes Inspection Nml, Ears Inspection Nml, Nose Inspection Nml, Oral/Dental Inspect. Nml, Pharynx Inspect. Nml, PERRL, EOMI - Neck Neck: REPORTS: Normal Inspection, No Carotid Bruit - Respiratory Respiratory: REPORTS: No Respiratory Distress, Rhonchi (Scattered rhonchi) - Cardiovascular Cardiovascular: REPORTS: Regular Rate and Rhythm, Equal Pulses, Strong Pulses, No Murmur, No Gallop, No Friction Rub, No JVD. DENIES: Heart Sounds Normal (1 to 2/6 systolic murmur over precordium) Peripheral Pulses: Radial (R): 2+, Radial (L): 2+ Murmur: Systolic: Grade 2 - Abdomen Abdomen: Soft: (All Quadrants), Normal Bowel Sounds: (All Quadrants), Denies Tenderness: (All Quadrants), No Splenomegaly: (All Quadrants), No Hepatomegaly: (All Quadrants), No Guarding: (All Quadrants), No Rebound: (All Quadrants), No Palpable Pulse: (All Quadrants), No Palpabale Mass: (All Quadrants), No Distention: (All Quadrants), No Rigidity: (All Quadrants) - Skin Skin: REPORTS: Intact, Normal For Race, Warm, Dry, No Rash - Extremities Extremity: Non-Tender: (All Extremities), Normal ROM: (All Extremities), Normal Inspection: (All Extremities) Additional Extremities Details: Patient has some chronic erythema over anterior aspect of left lower leg - Neurological / Psychological Neurological: POSITIVE: Oriented X3, front end assistant Normal As Tested, Motor Normal, Sensation Normal, 5, 6 Images - Complete Complete: 1 - Area of described chest pain 2 - Chronic erythema Chest Pain Progress - Results Reviewed by me Xrays/CTs/US Reviewed by me: Yes Discussed with Radiologist: No Radiology Findings: PA chest shows no definite infiltrates or other abnormalities seen on my interpretation, but due to [place]'s obesity chest x- ray is of poor quality. Lab Results Reviewed: Yes (cardiac enzymes normal; d-dimer mildly elevated) Lab Results:: Laboratory Results 10/07/16 Range/Units 07:05 WBC 4.28 L (4.8-10.8) 10^3/uL RBC 3.79 L (4.20-5.40) 10^6/uL Hgb 10.4 L (12.0-16.0) g/dL Hct 33.0 L (37.0-47.0) % MCV 87.1 (81-99) FL MCH 27.4 (27-31) PG MCHC 31.5 L (33-37) g/dL RDW Std Deviation 64.0 H (39-50) fL RDW Coeff of Georgina 20.6 H (11.5-14.5) % Plt Count 126 L (140-350) 10*3/uL MPV 11.4 (7.4-12.2) FL Immature Gran % (Auto) 0.2 (0-5) % Neut % (Auto) 46.3 L (50-80) % Lymph % (Auto) 38.6 (10-50) % [place] % (Auto) 11.9 (5-15) % Eos % (Auto) 2.3 (0-8) % Baso % (Auto) 0.7 (0-1) % Immature Gran # (Auto) 0.01 10*3/UL Neut # (Auto) 1.98 10*3/UL Lymph # (Auto) 1.65 10*3/uL [place] # (Auto) 0.51 (0.3-0.8) 10*3/UL Eos # (Auto) 0.10 10*3/UL Baso # (Auto) 0.03 10*3/UL WBC Morphology Comment Normal morphology (NORM) Plt Morphology Comment Normal morphology (NORM) RBC Morph Comment Normal morphology (NORM) D-Dimer 0.98 H (0.00-0.59) mg/L Sodium 140 (135-145) meq/L Potassium 3.6 L (3.8-5.2) meq/L Chloride 108 (98-112) meq/L Carbon Dioxide 20 L (23-33) meq/L Anion Gap 12 (5-20) BUN 19 (7-22) mg/dL Creatinine 0.7 (0.50-1.20) mg/dL Estimated GFR (>60 ml/min/1.73m(2)) BUN/Creatinine Ratio 27.14 H (6-20) Glucose 170 H (78-110) mg/dL Calculated Osmolality 295.0 H (267-292) mOsm/kg Calcium 8.9 (8.7-10.7) mg/dL Total Bilirubin 0.3 (0.3-1.2) mg/dL AST 61 H (8-39) IU/L ALT 57 H (9-52) IU/L Alkaline Phosphatase 62 (38-126) IU/L CK-MB (CK-2) 2.44 (0.00-5.00) NG/ML Troponin I < 0.012 (< 0.040) ng/mL Total Protein 6.6 (6.1-8.0) g/dL Albumin 3.4 L (3.5-4.8) g/dL Globulin 3.2 (2.50-4.10) g/dL Albumin/Globulin Ratio 1.00 L (1.3-2.0) mg/g Cardiac enzymes normal; d-dimer mildly elevated EKG Interpreted/Reviewed By Me:: Yes EKG Interpretation:: POSITIVE: Normal Sinus Rhythm, Normal Rate, Normal Intervals, Normal Thayer, Normal QRS, Normal ST/T - Patient's Progress Pain Medication Addressed: POSITIVE: Yes (Patient given nitroglycerin 2 with no apparent effect) School/Work Release Addressed: POSITIVE: Not Applicable Re-Examine Time: 08:30 Re-Examine Comment: Patient is in no distress throughout her stay in the emergency room. CTA of chest ordered, and patient has not yet gone down to radiology for this study. Case discussed with Dr. Best, who is emergency physician coming on duty. Care transferred to Dr. Best. Status: POSITIVE: Unchanged, Re-Examined Quality Measure Initiative: CP/AMI: POSITIVE: EKG, ASA - Consult Counseled: POSITIVE: Patient, Family, RE: Lab Results, RE: Radiology Results, RE : DX, RE: Need for F/U Patient Care Time - Estimated PCT Patient Care Time (In Minutes): 60 Vital Signs - Recent Vital Signs Vital Signs: Vital Signs (Last 8 hours) Temp Pulse Resp BP Pulse Ox 10/07/16 06:35 85 10/07/16 06:27 98.1 F 85 20 148/67 96 - VS Reviewed Vital Signs Reviewed: Yes Discharge Clinical Impression: Chest pain Condition: Fair Care Transferred To: care transferred to Dr. Best, [id number]
--- NOTE | 2016-10-07 10:05 | DI ---
HISTORY: Elevated d-dimer with chest pain. History of breast cancer approximately five years ago. TECHNIQUE: Contrast-enhanced imaging of the chest were obtained and submitted for interpretation. FINDINGS: Suboptimal opacification of the pulmonary arteries. No large filling defects noted to sug gest pulmonary embolism. There is cardiomegaly. Prominent mediastinal lymph nodes are present, and these measure up to 1.6 cm. There is no hilar or axillary adenopathy. There is coronary artery calcification. There is no pleural or pericardial effusion. The trachea, main, and segmental bronchi demonstrate no endobronchial lesions. There is scattered emphysema. Ground glass opacities in both lung bases suggest atelectasis or scarr ing. Fibrosis can have a similar appearance. Limited sections of the upper abdomen demonstrate no acute findings. There is contrast versus calcul us in the left kidney. IMPRESSION: 1. No CT evidence of acute pulmonary emboli. 2. Cardiomegaly. 3. Contrast versus calculus in the left kidney.
--- NOTE | 2016-10-07 10:46 | PDOC ---
Transfer of Care - Care Accepted Time Care Transferred: 09:00 Report from Transferring Physician Received: Yes MDM / ED Course: The patient is a 70-year-old female who had presented to the emergency department this morning with complaints of left sided chest pain. She has been ill with upper respiratory symptoms for approximately one week including cough and congestion. She was seen at the walk-in clinic on Saturday and started on Zithromax. This morning she started to experience some fairly severe left- sided chest pain. She had taken sublingual nitroglycerin at home without any relief and subsequently presented here to the emergency department. She was given 2 sublingual nitroglycerin here which she states did not really seem like it helped much however over time her pain has now resolved. Her pain was worsened with taking a deep breath and coughing. Her initial EKG had showed a normal sinus rhythm with no acute changes. Initial troponin was also normal. Her d-dimer however was elevated and a CTA of her chest was ordered and is still pending. Her initial chest x-ray showed no obvious infiltrate per Dr. Saeed. Home Medications: Home Medications Ascorbic Acid [Vitamin C] 1,000 mg PO QD 12/13/10 Acetaminophen [Tylenol] 1,000 mg PO PRN PRN 11/14/11 Folic Acid 1 mg ORAL QD #90 tab 04/11/12 Fluticasone Propionate [Flonase] 2 spr NASAL QHS #1 spr 06/17/13 Ipratropium [place] [Atrovent] 2 spr INASL 3-4XD PRN #1 bottle 06/29/13 Meclizine HCl 25 mg PO QID PRN PRN 11/12/13 Tamoxifen Citrate 20 mg PO DAILY 11/12/13 Blood-Glucose Meter [Blood Glucose Monitor] 1 each MC QID #1 each 10/20/14 diphenhydrAMINE HCl [Benadryl] 1 cap PO PRN PRN 06/22/15 Aspirin 325 mg PO DAILY #30 06/24/15 Nitroglycerin SL Tab [Nitrostat SL Tab] 0.4 mg SL ASDIR #20 tab 07/01/15 Cyanocobalamin (Vitamin B-12) [Vitamin B12] 2,500 mcg PO QD tab 02/14/16 Albuterol Sulfate 1 each NEB Q4-6H #120 vial 04/02/16 Atorvastatin Calcium [Lipitor] 1 tab ORAL QHS #90 tab 04/02/16 Blood Sugar Diagnostic [Blood Glucose Test] 1 each QID #360 strip 04/02/16 Insulin Lispro Inj [Humalog Inj] 0 - 12 unit SUBCUT AC HS #3 vial 04/02/16 Lancets [Accu-Chek Fastclix] 1 each QID #360 each 04/02/16 Magnesium Oxide 1 tab PO BID #180 tab 04/02/16 Mesalamine [Pentasa] 1 cap PO BID #180 cap 04/02/16 Losartan Potassium 1 tab PO DAILY #90 tab 04/04/16 Gabapentin 1 cap PO TID #360 tab 04/26/16 Pantoprazole Sodium [Protonix] 1 tab PO BID #60 tab 06/19/16 Insulin Glargine Inj [Lantus Inj] 70 unit SUBCUT BEDTIME #3 vial 07/02/16 Ferrous Gluconate [Fergon] 1 tab PO QD #90 tab 08/16/16 Furosemide [Lasix] 3 tab PO BID #360 tab 08/16/16 Potassium Chloride [Klor-Con M20] 3 tab PO BID #360 tab 08/16/16 Escitalopram Oxalate 1 tab PO DAILY #90 tab 08/17/16 Isosorbide Mononitrate [Isosorbide Mononitrate Er] 1 tab PO DAILY #90 tab Levothyroxine Sodium 1 tab PO QAM #90 tab 08/17/16 Gabapentin 600 mg PO BEDTIME 08/21/16 Syring W-Ndl,Disp,Insul,0.5 ml [Monoject Insulin Syringe] 1 each QID #360 box 09/12/16 Syring W-Ndl,Disp,Insul,0.5 ml [Monoject Insulin Syringe] 1 each QID #40 unit 09/12/16 Diclofenac Sodium 4 gm TP QID PRN #1 tube 10/01/16 Azithromycin 1 packet PO QD #6 tab 10/04/16 Guaifenesin [Mucinex] 600 mg PO BID 10/07/16 Allergies/Adverse Reactions: Allergies ibuprofen Allergy (Severe, Verified 10/07/16 06:47) RASH menthol Allergy (Severe, Verified 10/07/16 06:47) RASH Penicillins Allergy (Severe, Verified 10/07/16 06:47) Anaphylaxis procaine HCl [From Novocain] Allergy (Severe, Verified 10/07/16 06:47) Anaphylaxis cefuroxime axetil [From Ceftin] Adverse Reaction (Mild, Verified 10/07/16 06:47) causes redness and blistering feeling in hands steri strips Allergy (Uncoded 10/07/16 06:47) NOT APPLICABLE benzoine Adverse Reaction (Intermediate, Uncoded 10/07/16 06:47) RASH Vital Signs Reviewed: Yes Nurse's Notes Reviewed & Considered: Yes - Pending Patient Care Items Pending Patient Care Items: POSITIVE: CT / MRI Results - Re-Evaluation of Patient Counseled: POSITIVE: Patient, RE: Lab Results, RE: Radiology Results, RE: DX Pending Test Results Documented: Yes (CTA of the chest is negative for PE, groundglass opacities in the bases, co) - Results Reviewed Lab Results: Laboratory Results 10/07/16 Range/Units 07:05 WBC 4.28 L (4.8-10.8) 10^3/uL RBC 3.79 L (4.20-5.40) 10^6/uL Hgb 10.4 L (12.0-16.0) g/dL Hct 33.0 L (37.0-47.0) % MCV 87.1 (81-99) FL MCH 27.4 (27-31) PG MCHC 31.5 L (33-37) g/dL RDW Std Deviation 64.0 H (39-50) fL RDW Coeff of Georgina 20.6 H (11.5-14.5) % Plt Count 126 L (140-350) 10*3/uL MPV 11.4 (7.4-12.2) FL Immature Gran % (Auto) 0.2 (0-5) % Neut % (Auto) 46.3 L (50-80) % Lymph % (Auto) 38.6 (10-50) % Grayson % (Auto) 11.9 (5-15) % Eos % (Auto) 2.3 (0-8) % Baso % (Auto) 0.7 (0-1) % Immature Gran # (Auto) 0.01 10*3/UL Neut # (Auto) 1.98 10*3/UL Lymph # (Auto) 1.65 10*3/uL Grayson # (Auto) 0.51 (0.3-0.8) 10*3/UL Eos # (Auto) 0.10 10*3/UL Baso # (Auto) 0.03 10*3/UL WBC Morphology Comment Normal morphology (NORM) Plt Morphology Comment Normal morphology (NORM) RBC Morph Comment Normal morphology (NORM) D-Dimer 0.98 H (0.00-0.59) mg/L Sodium 140 (135-145) meq/L Potassium 3.6 L (3.8-5.2) meq/L Chloride 108 (98-112) meq/L Carbon Dioxide 20 L (23-33) meq/L Anion Gap 12 (5-20) BUN 19 (7-22) mg/dL Creatinine 0.7 (0.50-1.20) mg/dL Estimated GFR (>60 ml/min/1.73m(2)) BUN/Creatinine Ratio 27.14 H (6-20) Glucose 170 H (78-110) mg/dL Calculated Osmolality 295.0 H (267-292) mOsm/kg Calcium 8.9 (8.7-10.7) mg/dL Total Bilirubin 0.3 (0.3-1.2) mg/dL AST 61 H (8-39) IU/L ALT 57 H (9-52) IU/L Alkaline Phosphatase 62 (38-126) IU/L CK-MB (CK-2) 2.44 (0.00-5.00) NG/ML Troponin I < 0.012 (< 0.040) ng/mL Total Protein 6.6 (6.1-8.0) g/dL Albumin 3.4 L (3.5-4.8) g/dL Globulin 3.2 (2.50-4.10) g/dL Albumin/Globulin Ratio 1.00 L (1.3-2.0) mg/g EKG Interpreted/Reviewed By Me:: Yes EKG Interpretation:: POSITIVE: Normal Sinus Rhythm, Normal Rate, Normal QRS, Normal ST/T - Consult Recommendations:: The patient is a 70-year-old female with history of diabetes, hypertension, hyperlipidemia, obesity, COPD who presents to the emergency department with left -sided chest pain and recent upper respiratory symptoms/cough. Her initial EKG and cardiac enzymes were normal. Her d-dimer was elevated and subsequent CTA was negative for PE. She does have evidence of coronary calcifications on CT. Review of previous workups reveals a nuclear stress test in June 2015 that was abnormal. She has been treated medically per Dr. Pina since then. At this point her pain most likely represents pleuritic pain from recent respiratory symptoms however she does have significant cardiac risk factors as well. Decision was made to admit and treat for COPD exacerbation/possible early pneumonia as well as chest pain. The patient is in agreement with this plan and Dr. Melton has agreed to admit her. Patient Care Time - Estimated PCT Patient Care Time (In Minutes): 20 Vital Signs - Recent Vital Signs Vital Signs: Vital Signs (Last 8 hours) Temp Pulse Resp BP Pulse Ox 10/07/16 06:35 85 10/07/16 06:27 98.1 F 85 20 148/67 96 - VS Reviewed Vital Signs Reviewed: Yes Discharge Clinical Impression: Chest pain, Pleuritic pain, Chronic obstructive pulmonary disease Discharge Disposition: Admit to Observation Condition: Fair Follow Up With: MAHAMED CMAP [Primary Care Provider] - Date Decision to Admit to Inpatient: 10/07/16 Time Decision to Admit to Inpatient: 10:30
--- NOTE | 2016-10-07 11:08 | PDOC ---
History and Physical - History of Present Illness Date and Time of Service: 10/07/2016 1 PM Chief Complaint: Episode of chest pain that started this morning History of Present Illness: This is a 70 years old female with medical history significant for history of diabetes type II on insulin, hypertension, hypothyroidism, history of breast cancer status post mastectomy and chemoradiation in the past, previous history of abnormal stress test in June 2015 at that time showed large mild intensity reversible defect involving the apex and the anterior septal wall she's been followed up by Dr. Pina and she's been treated medically, history of sleep apnea using CPAP at night, COPD on oxygen who came into the ER because of left- sided chest pain. She said that she started to have symptom last week beginning on Saturday with cough and congestion, she had difficulty bringing phlegm up with some mild shortness of breath. She came in on Saturday to the urgent care clinic and they gave her Zithromax. This morning she woke up with pain felt in the left side of the chest there was no radiation there was some mild shortness of breath she took nitroglycerin without help and because of that he came into the ER. She was given 2 sublingual nitroglycerin she said that didn't help the pain much however the pain resolved after that. She think the pain is worse when she coughs. Pain is sharp doesn't last long. She had a CT which was negative for PE and there is evidence of chronic coronary artery calcification. Because of her risk factors she was admitted to the hospital. When time I saw her she was feeling weak but otherwise there was no chest pain. Apparently she did have some chest pain she couldn't tell me when and was seen by Dr. Pina and he added Imdur to her medication. Past Medical History Medical History: 1. Diabetes type II on insulin. 2. Obstructive sleep apnea on CPAP at night. 3. COPD. 4. Hyperlipidemia. 5. Hypothyroidism. 6. History of breast cancer status post surgery 2011 and chemotherapy with radiation. 7. Depression. 8. Hypertension. 9. Moderate mitral regurgitation. 10. Abnormal stress test in June 2015 being followed up by Dr. Pina being treated medically. 11. Chronic anemia. 12. Crohn's disease Surgical History: 1. History of breast cancer status post surgery. 2. Cholecystectomy. 3. Tonsillectomy. 4. Adenoidectomy Family History: Reviewed an Not Pertinent (Significant Family History: Heart disease, Cancer, Diabetes, Hypertension, Vascular disease) Past Social History: She used to smoke quit a few years ago, rarely drinks. No drugs. Lives with her Tobacco Use: Former Smoker Substance Use Type: None Alcohol Use: Rarely Medication / Allergies Home Medications: Home Medications Medication Instructions Recorded Confirmed Type Ascorbic Acid [Vitamin C] 1,000 mg PO QD 12/13/10 10/07/16 History Acetaminophen [Tylenol] 1,000 mg PO PRN PRN 11/14/11 10/07/16 History Folic Acid 1 mg ORAL QD #90 tab 04/11/12 10/07/16 Clinic Fluticasone Propionate [Flonase] 2 spr NASAL QHS #1 spr 06/17/13 10/07/16 Clinic Ipratropium [place] [Atrovent] 2 spr INASL 3-4XD PRN #1 bottle 06/29/13 Clinic Meclizine HCl 25 mg PO QID PRN PRN 11/12/13 10/07/16 History Tamoxifen Citrate 20 mg PO DAILY 11/12/13 10/07/16 History Blood-Glucose Meter [Blood Glucose 1 each QID #1 each 10/20/14 10/07/16 Clinic Monitor] diphenhydrAMINE HCl [Benadryl] 1 cap PO PRN PRN 06/22/15 10/07/16 History Aspirin 325 mg PO DAILY #30 06/24/15 10/07/16 Rx Nitroglycerin SL Tab [Nitrostat 0.4 mg SL ASDIR #20 tab 07/01/15 10/07/16 Clinic SL Tab] Cyanocobalamin (Vitamin B-12) 2,500 mcg PO QD tab 02/14/16 10/07/16 History [Vitamin B12] Albuterol Sulfate 1 each NEB Q4-6H #120 vial 04/02/16 10/07/16 Clinic Atorvastatin Calcium [Lipitor] 1 tab ORAL QHS #90 tab 04/02/16 10/07/16 Clinic Blood Sugar Diagnostic [Blood 1 each QID #360 strip 04/02/16 10/07/16 Clinic Glucose Test] Insulin Lispro Inj [Humalog Inj] 0 - 12 unit SUBCUT AC HS #3 vial 04/02/1610/07 Clinic Lancets [Accu-Chek Fastclix] 1 each QID #360 each 04/02/16 10/07/16 Clinic Magnesium Oxide 1 tab PO BID #180 tab 04/02/16 10/07/16 Clinic Mesalamine [Pentasa] 1 cap PO BID #180 cap 04/02/16 10/07/16 Clinic Losartan Potassium 1 tab PO DAILY #90 tab 04/04/16 10/07/16 Clinic Gabapentin 1 cap PO TID #360 tab 04/26/16 10/07/16 Clinic Pantoprazole Sodium [Protonix] 1 tab PO BID #60 tab 06/19/16 10/07/16 Clinic Insulin Glargine Inj [Lantus Inj] 70 unit SUBCUT BEDTIME #3 vial 07/02/16 Clinic Ferrous Gluconate [Fergon] 1 tab PO QD #90 tab 08/16/16 10/07/16 Clinic Furosemide [Lasix] 3 tab PO BID #360 tab 08/16/16 10/07/16 Clinic Potassium Chloride [Klor-Con M20] 3 tab PO BID #360 tab 08/16/16 10/07/16 Clinic Escitalopram Oxalate 1 tab PO DAILY #90 tab 08/17/16 10/07/16 Clinic Isosorbide Mononitrate [Isosorbide 1 tab PO DAILY #90 tab 08/17/16 10/07/16 Clinic Mononitrate Er] Levothyroxine Sodium 1 tab PO QAM #90 tab 08/17/16 10/07/16 Clinic Gabapentin 600 mg PO BEDTIME 08/21/16 10/07/16 History Syring W-Ndl,Disp,Insul,0.5 ml 1 each MC QID #360 box 09/12/16 10/07/16 Clinic [Monoject Insulin Syringe] Syring W-Ndl,Disp,Insul,0.5 ml 1 each MC QID #40 unit 09/12/16 10/07/16 Clinic [Monoject Insulin Syringe] Diclofenac Sodium 4 gm TP QID PRN #1 tube 10/01/16 10/07/16 Clinic Azithromycin 1 packet PO QD #6 tab 10/04/16 10/07/16 Clinic Guaifenesin [Mucinex] 600 mg PO BID 10/07/16 10/07/16 History Allergies/Adverse Reactions: Allergies Allergy/AdvReac Type Severity Reaction Status Date / Time ibuprofen Allergy Severe RASH Verified 10/07/16 06:47 menthol Allergy Severe RASH Verified 10/07/16 06:47 Penicillins Allergy Severe Anaphylaxis Verified 10/07/16 06:47 procaine HCl [From Novocain] Allergy Severe Anaphylaxis Verified 10/07/16 06:47 cefuroxime axetil AdvReac Mild causes Verified 10/07/16 06:47 [From Ceftin] redness and blistering feeling in hands steri strips Allergy NOT Uncoded 10/07/16 06:47 APPLICABLE benzoine AdvReac Intermediate RASH Uncoded 10/07/16 06:47 Review of Systems - Review of Systems All Systems: Reviewed & No Additional Complaints Except as Stated Exam - Vitals Vital Signs: Vital Signs Temperature 98.2 F Temperature Source Temporal Artery Scan Pulse Rate 95 Blood Pressure 142/72 Pulse Ox 95 - General General Appearance: POSITIVE: No Acute Distress, Obese - Head Head Exam: POSITIVE: Normal Inspection, Atraumatic - Eye Eye Exam: POSITIVE: Normal Appearance - ENT ENT Exam: POSITIVE: Normal Exam - Neck Neck Exam: POSITIVE: Normal Inspection - Respiratory Additional Respiratory Exam Details: reduced air entry otherwise clear - Cardiovascular Cardiovascular Exam: POSITIVE: RRR, Systolic Murmur - GI/Abdominal GI/Abdominal Exam: POSITIVE: Normal Bowel Sounds, Non Tender, Non Distended, Soft - Rectal Rectal Exam: POSITIVE: Deferred - External Exam: POSITIVE: Deferred - Extremities Extremities Exam: POSITIVE: Normal Inspection, Pedal Edema - Back Back Exam: POSITIVE: Normal Inspection - Neurological Neurological Exam: POSITIVE: Alert, Oriented x 3, CN II-XII Intact, Speech Intact / Clear, Moves All Extremities Equally - Psychiatric Psychiatric Exam: POSITIVE: Normal Affect Results - Labs CBC and BMP: 10/07/16 07:05 10/07/16 07:05 - EKG Data -: EKG Interpreted by Me Rate: Normal EKG Shows Normal: Sinus Rhythm - EKG Data EKG Interpretation: No Acute Change - Imaging Status: Report Reviewed by Me (CT chest negative for PE, cardiomegaly, ground glass opacities in both lung bases suggest atelectasis or scarring. Coronary artery calcification) Assessment and Plan - Patient Problems (1) Chest pain Current Visit: Yes Status: Acute Comment: Her pain is a typical pain. At times seem to be pleuritic but the pain seems to be resolved after 2 nitroglycerin that she had. I did discuss with her ruling her out's and repeating the stress test and she is okay with repeating the stress test. Her stress test was abnormal before and she had some chest pain also recently and she was put on Imdur, she said if it is abnormal she is willing to have an angiogram and intervention if needed (2) Diabetes Current Visit: No Status: Acute Comment: Continue Lantus and the sliding scale (3) Hypertension Current Visit: Yes Status: Acute Comment: Same med (4) Crohn disease Current Visit: No Status: Acute Comment: Same med (5) COPD (chronic obstructive pulmonary disease) Current Visit: Yes Status: Acute Comment: Her symptoms seem to be mild, continue Zithromax continue bronchodilator and oxygen. I think we'll hold off on steroid for now. (6) Hypothyroidism Current Visit: Yes Status: Acute Comment: Same med
[2016-10-07] MEDS ORDERED: NITROGLYCERIN 0.4 MG SL TAB (BOTTLE OF 3) SL PRN (11:46)
[2016-10-07] MEDS ORDERED: LIDOCAINE W/ SODIUM BICARB 0.5 ML SYR SUBD PRN (11:46)
[2016-10-07] MEDS ORDERED: ACETAMINOPHEN 325 MG TABLET PO PRN ×2 (11:55→23:28)
[2016-10-07] MEDS: FOLIC ACID 1 MG TABLET PO SCH (12:43)
[2016-10-07] MEDS: POTASSIUM CHLORIDE 20 MEQ TAB PO SCH ×3 (12:43→21:43)
[2016-10-07] MEDS: FUROSEMIDE 40 MG TABLET PO SCH ×2 (12:43→21:17)
[2016-10-07] MEDS: GABAPENTIN 300 MG CAPSULE PO SCH ×2 (15:03→21:17)
[2016-10-07] MEDS: ALBUTEROL SULFATE 2.5 MG/3 ML NEB SCH ×2 (15:09→19:18)
[2016-10-07] MEDS: Insulin Lispro Flexpen 300 UNIT/3 ML INSULN.PEN SUBCUT SCH (16:52)
[2016-10-07] MEDS ORDERED: FLUTICASONE PROPIONATE 16 GRAM (120 SPRAYS / BOTTLE) ENOS SCH (19:00)
[2016-10-07] MEDS: AZITHROMYCIN 250 MG TABLET PO SCH (19:11)
[2016-10-07] MEDS ORDERED: Insulin Glargine SoloStar Inj 100 UNIT/ML INSULN.PEN SUBCUT SCH (21:00)
[2016-10-07] MEDS ORDERED: ATORVASTATIN 40 MG TABLET PO SCH (21:00)
[2016-10-07] MEDS: MESALAMINE 500 MG CAPSULE PO SCH (21:17)
[2016-10-07] MEDS: PANTOPRAZOLE 40 MG TABLET PO SCH (21:17)
[2016-10-07] MEDS: GUAIFENESIN 600 MG TABLET PO SCH (21:57)
[2016-10-07] MEDS ORDERED: ONDANSETRON 4 MG/2 ML VIAL IVP PRN (23:26)
[2016-10-08] MEDS ORDERED: LEVOTHYROXINE SODIUM PO SCH ×2 (05:30)
[2016-10-08] MEDS: Insulin Lispro Flexpen 300 UNIT/3 ML INSULN.PEN SUBCUT SCH ×2 (06:41→13:40)
[2016-10-08] MEDS ORDERED: FUROSEMIDE 40 MG TABLET PO SCH (07:00)
[2016-10-08] MEDS: ALBUTEROL SULFATE 2.5 MG/3 ML NEB SCH ×3 (07:18→15:15)
[2016-10-08 07:25] LABS: BUN/CREATININE RATIO 31.42 (6-20); CALCIUM 9.2 mg/dL (8.7-10.7)
[2016-10-08] MEDS ORDERED: ASPIRIN 325 MG TABLET PO SCH (09:00)
[2016-10-08] MEDS ORDERED: FERROUS GLUCONATE 324 MG TABLET PO SCH (09:00)
[2016-10-08] MEDS ORDERED: LOSARTAN 50 MG TABLET PO SCH (09:00)
[2016-10-08] MEDS ORDERED: TAMOXIFEN CITRATE 20 MG PO SCH (09:00)
[2016-10-08] MEDS ORDERED: ISOSORBIDE MONONITRATE 30 MG SR 24H TABLET PO SCH ×2 (09:00)
[2016-10-08] MEDS ORDERED: ESCITALOPRAM 10 MG TABLET PO SCH (09:00)
--- NOTE | 2016-10-08 09:14 | STRESSTEST ---
[facility] [place] Interpretive Statements this is a very nice 70 yo female with positive stress test 1 year ago. comes back in hospital with chest pain . this has been going on for the past year off and on also with SOB., no acute changes on stress portion will await ni aging [email or web address]
[2016-10-08] MEDS: MESALAMINE 500 MG CAPSULE PO SCH (09:18)
[2016-10-08] MEDS: FOLIC ACID 1 MG TABLET PO SCH (09:18)
[2016-10-08] MEDS: GABAPENTIN 300 MG CAPSULE PO SCH ×2 (09:18→14:53)
[2016-10-08] MEDS: POTASSIUM CHLORIDE 20 MEQ TAB PO SCH (09:18)
[2016-10-08] MEDS: AZITHROMYCIN 250 MG TABLET PO SCH (09:18)
[2016-10-08] MEDS: GUAIFENESIN 600 MG TABLET PO SCH (09:19)
[2016-10-08] MEDS: PANTOPRAZOLE 40 MG TABLET PO SCH (09:19)
--- NOTE | 2016-10-08 10:55 | DI ---
XR CXR 1VW,10/07/2016 6:45 AM: Clinical History: Chest pain Previous Exam: August 10, 2016 Findings: A single frontal radiograph of the chest is obtained, and demonstrate some increased interstitial mar kings. There is some stable prominence of the heart border which is not well evaluated on this AP view. A few stable vascular calcifications are seen. Impression: No significant change from the prior exam.
[2016-10-08 11:04] VITALS: RESP 19; TEMP 97.8
--- NOTE | 2016-10-08 14:00 | DI ---
2 DAY LEXISCAN STRESS & REST MYOCARDIAL PERFUSION SCANS, 10/07/2016 5:00 PM : Clinical History: Chest pain Previous Exam: June 23, 2015 The patient was stressed by Dr. Gr The standard Lexiscan protocol was used. Please see the Doctor's report. At the designated time, 32.2 mCi of 99Tc-sestimibi was injected IV. Stress gated tomograms were acquired within one hour of the i njection. For the resting scans, 33.4 mCi was injected IV and resting gated tomograms were acquired in similar fashion. Stress scans were performed on October 07, 2016; the resting scans were performed on October 08, 2016. Quantitative and qualitative analyses were performed. Quantitative analysis was performed with the IN [facility] [id number] protocols. Very low dose limited CT scans of the chest are o btained through the level of the heart for attenuation correction of the gated stress and rest cardia c SPECT data. Non-attenuated and attenuated scans were processed for review, and the attenuated scans were used for final interpretation of this study. Review of the raw data images and housing quality standard inspector files indicate that these series of examinations ar e of excellent quality. Stress and rest left ventricular chamber sizes are slightly prominent. Stress and rest LVEF are 70 % and 78 %, respectively. There is no evidence of reversibility nor ischemia. Transient ischemic dilatation ratio is 1.15, with a normal range up to 1.22 for patients str essed with the Goran protocol and up to 1.33 for patients stressed with the Lexiscan protocol. The very low dose CT scans through the level of the heart demonstrate multiple coronary artery calcif ications. There are also calcifications of the mitral valve. The mediastinal structures are unremarkable. There is mild fatty infiltration of the liver which is also irregular in contour and shrunken most co nsistent with cirrhosis. There is no adenopathy or evidence of lung nodules. Readin. No evidence of ischemia. 2. Coronary artery disease. 3. Hepatic cirrhosis. 4. Normal wall motion with normal ejection fraction.
--- NOTE | 2016-10-08 15:14 | DCSUMMARY ---
Hospitalization Summary Hospital Course: Final Discharge Diagnosis: Laboratory Results 10/07/16 10/07/16 10/07/16 Range/Units 07:05 13:05 19:00 WBC 4.28 L (4.8-10.8) 10^3/uL RBC 3.79 L (4.20-5.40) 10^6/uL Hgb 10.4 L (12.0-16.0) g/dL Hct 33.0 L (37.0-47.0) % MCV 87.1 (81-99) FL MCH 27.4 (27-31) PG MCHC 31.5 L (33-37) g/dL RDW Std Deviation 64.0 H (39-50) fL RDW Coeff of Georgina 20.6 H (11.5-14.5) % Plt Count 126 L (140-350) 10*3/uL MPV 11.4 (7.4-12.2) FL Immature Gran % (Auto) 0.2 (0-5) % Neut % (Auto) 46.3 L (50-80) % Lymph % (Auto) 38.6 (10-50) % [place] % (Auto) 11.9 (5-15) % Eos % (Auto) 2.3 (0-8) % Baso % (Auto) 0.7 (0-1) % Immature Gran # (Auto) 0.01 10*3/UL Neut # (Auto) 1.98 10*3/UL Lymph # (Auto) 1.65 10*3/uL [place] # (Auto) 0.51 (0.3-0.8) 10*3/UL Eos # (Auto) 0.10 10*3/UL Baso # (Auto) 0.03 10*3/UL WBC Morphology Comment Normal morphology (NORM) Plt Morphology Comment Normal morphology (NORM) RBC Morph Comment Normal morphology (NORM) D-Dimer 0.98 H (0.00-0.59) mg/L Sodium 140 (135-145) meq/L Potassium 3.6 L (3.8-5.2) meq/L Chloride 108 (98-112) meq/L Carbon Dioxide 20 L (23-33) meq/L Anion Gap 12 (5-20) BUN 19 (7-22) mg/dL Creatinine 0.7 (0.50-1.20) mg/dL Estimated GFR (>60 ml/min/1.73m(2)) BUN/Creatinine Ratio 27.14 H (6-20) Glucose 170 H (78-110) mg/dL Calculated Osmolality 295.0 H (267-292) mOsm/kg Calcium 8.9 (8.7-10.7) mg/dL Total Bilirubin 0.3 (0.3-1.2) mg/dL AST 61 H (8-39) IU/L ALT 57 H (9-52) IU/L Alkaline Phosphatase 62 (38-126) IU/L Total Creatine Kinase 224 H 234 H (30-135) IU/L CK-MB (CK-2) 2.44 (0.00-5.00) NG/ML Troponin I < 0.012 < 0.012 < 0.012 (< 0.040) ng/mL Total Protein 6.6 (6.1-8.0) g/dL Albumin 3.4 L (3.5-4.8) g/dL Globulin 3.2 (2.50-4.10) g/dL Albumin/Globulin Ratio 1.00 L (1.3-2.0) mg/g 10/08/16 Range/Units 07:01 WBC (4.8-10.8) 10^3/uL RBC (4.20-5.40) 10^6/uL Hgb (12.0-16.0) g/dL Hct (37.0-47.0) % MCV (81-99) FL MCH (27-31) PG MCHC (33-37) g/dL RDW Std Deviation (39-50) fL RDW Coeff of Georgina (11.5-14.5) % Plt Count (140-350) 10*3/uL MPV (7.4-12.2) FL Immature Gran % (Auto) (0-5) % Neut % (Auto) (50-80) % Lymph % (Auto) (10-50) % [place] % (Auto) (5-15) % Eos % (Auto) (0-8) % Baso % (Auto) (0-1) % Immature Gran # (Auto) 10*3/UL Neut # (Auto) 10*3/UL Lymph # (Auto) 10*3/uL [place] # (Auto) (0.3-0.8) 10*3/UL Eos # (Auto) 10*3/UL Baso # (Auto) 10*3/UL WBC Morphology Comment (NORM) Plt Morphology Comment (NORM) RBC Morph Comment (NORM) D-Dimer (0.00-0.59) mg/L Sodium 142 (135-145) meq/L Potassium 3.6 L (3.8-5.2) meq/L Chloride 106 (98-112) meq/L Carbon Dioxide 23 (23-33) meq/L Anion Gap 13 (5-20) BUN 22 (7-22) mg/dL Creatinine 0.7 (0.50-1.20) mg/dL Estimated GFR (>60 ml/min/1.73m(2)) BUN/Creatinine Ratio 31.42 H (6-20) Glucose 153 H (78-110) mg/dL Calculated Osmolality 299.0 H (267-292) mOsm/kg Calcium 9.2 (8.7-10.7) mg/dL Total Bilirubin (0.3-1.2) mg/dL AST (8-39) IU/L ALT (9-52) IU/L Alkaline Phosphatase (38-126) IU/L Total Creatine Kinase (30-135) IU/L CK-MB (CK-2) (0.00-5.00) NG/ML Troponin I (< 0.040) ng/mL Total Protein (6.1-8.0) g/dL Albumin (3.5-4.8) g/dL Globulin (2.50-4.10) g/dL Albumin/Globulin Ratio (1.3-2.0) mg/g Diagnostic Data, Laboratory Data, and Procedures of Signifigance: Current Visit Problems Problem Status Priority Diagnosed Code COPD (chronic obstructive pulmonary disease) Acute J44.9 Chest pain Acute R07.9 Hypertension Acute I10 Hypothyroidism Acute E03.9 Pleuritic pain Acute R07.81 History and Physical pertinent to Admission: Past Medical History Medical History: 1. Diabetes type II on insulin. 2. Obstructive sleep apnea on CPAP at night. 3. COPD. 4. Hyperlipidemia. 5. Hypothyroidism. 6. History of breast cancer status post surgery 2011 and chemotherapy with radiation. 7. Depression. 8. Hypertension. 9. Moderate mitral regurgitation. 10. Abnormal stress test in June 2015 being followed up by Dr. Pina being treated medically. 11. Chronic anemia. 12. Crohn's disease Surgical History: 1. History of breast cancer status post surgery. 2. Cholecystectomy. 3. Tonsillectomy. 4. Adenoidectomy Family History: Reviewed an Not Pertinent (Significant Family History: Heart disease, Cancer, Diabetes, Hypertension, Vascular disease) Past Social History: She used to smoke quit a few years ago, rarely drinks. No drugs. Lives with her Tobacco Use: Former Smoker Substance Use Type: None Alcohol Use: Rarely Course of Hospitalization: This very nice 70-year-old female, with past medical history significant for diabetes, hypertension, hypothyroidism apparently had a positive stress test in 2016 her [employer] [address] Pina has been treating her medically comes in with the some chest pain also was given some Zithromax from the urgent care center last Dionic[facility] she is well now and no chest pain nausea vomiting or shortness of breath we did do a Lexiscan stress test which was negative. Also she had a CT of her chest which was negative for pulmonary embolus and negative for pneumonia. I discussed the results with the patient she'll be discharging home in stable and improved condition she will resume her usual home meds and home oxygen which she is regularly on. On the date of discharge, the patient was examined: Gen.: No acute distress, alert, nontoxic Heart: Regular rate and rhythm, no murmurs, clicks, gallops, or rubs Lungs: Clear to auscultation bilaterally, breathing is nonlabored Abdomen/GI: Normal tones on auscultation, soft, nontender, nondistended Musculoskeletal/extremities: No clubbing, cyanosis, or edema Vitals reviewed and are listed below Assessment and Plan: 1. As per discharge assessments above 2. Disposition: Home 3. Condition on discharge, stable and improved. 4. Diet: regular diet 5. Activities: resume normal activities 6. Follow-Up: 1. PCP Dr. Gonzalez 2. 7. Medications at the Time of Discharge: Home Medications Medication Instructions Recorded Confirmed Type Ascorbic Acid [Vitamin C] 1,000 mg PO QD 12/13/10 10/07/16 History Acetaminophen [Tylenol] 1,000 mg PO PRN PRN 11/14/11 10/07/16 History Folic Acid 1 mg ORAL QD #90 tab 04/11/12 10/07/16 Clinic Fluticasone Propionate [Flonase] 2 spr NASAL QHS #1 spr 06/17/13 10/07/16 Clinic Ipratropium [place] [Atrovent] 2 spr INASL 3-4XD PRN #1 bottle 06/29/13 Clinic Meclizine HCl 25 mg PO QID PRN PRN 11/12/13 10/07/16 History Tamoxifen Citrate 20 mg PO DAILY 11/12/13 10/07/16 History Blood-Glucose Meter [Blood Glucose 1 each QID #1 each 10/20/14 10/07/16 Clinic Monitor] diphenhydrAMINE HCl [Benadryl] 1 cap PO PRN PRN 06/22/15 10/07/16 History Aspirin 325 mg PO DAILY #30 06/24/15 10/07/16 Rx Nitroglycerin SL Tab [Nitrostat 0.4 mg SL ASDIR #20 tab 07/01/15 10/07/16 Clinic SL Tab] Cyanocobalamin (Vitamin B-12) 2,500 mcg PO QD tab 02/14/16 10/07/16 History [Vitamin B12] Albuterol Sulfate 1 each NEB Q4-6H #120 vial 04/02/16 10/07/16 Clinic Atorvastatin Calcium [Lipitor] 1 tab ORAL QHS #90 tab 04/02/16 10/07/16 Clinic Blood Sugar Diagnostic [Blood 1 each QID #360 strip 04/02/16 10/07/16 Clinic Glucose Test] Insulin Lispro Inj [Humalog Inj] 0 - 12 unit SUBCUT AC HS #3 vial 04/02/1610/07 Clinic Lancets [Accu-Chek Fastclix] 1 each QID #360 each 04/02/16 10/07/16 Clinic Magnesium Oxide 1 tab PO BID #180 tab 04/02/16 10/07/16 Clinic Mesalamine [Pentasa] 1 cap PO BID #180 cap 04/02/16 10/07/16 Clinic Losartan Potassium 1 tab PO DAILY #90 tab 04/04/16 10/07/16 Clinic Gabapentin 1 cap PO TID #360 tab 04/26/16 10/07/16 Clinic Pantoprazole Sodium [Protonix] 1 tab PO BID #60 tab 06/19/16 10/07/16 Clinic Insulin Glargine Inj [Lantus Inj] 70 unit SUBCUT BEDTIME #3 vial 07/02/16 Clinic Ferrous Gluconate [Fergon] 1 tab PO QD #90 tab 08/16/16 10/07/16 Clinic Furosemide [Lasix] 3 tab PO BID #360 tab 08/16/16 10/07/16 Clinic Potassium Chloride [Klor-Con M20] 3 tab PO BID #360 tab 08/16/16 10/07/16 Clinic Escitalopram Oxalate 1 tab PO DAILY #90 tab 08/17/16 10/07/16 Clinic Isosorbide Mononitrate [Isosorbide 1 tab PO DAILY #90 tab 08/17/16 10/07/16 Clinic Mononitrate Er] Levothyroxine Sodium 1 tab PO QAM #90 tab 08/17/16 10/07/16 Clinic Gabapentin 600 mg PO BEDTIME 08/21/16 10/07/16 History Syring W-Ndl,Disp,Insul,0.5 ml 1 each MC QID #360 box 09/12/16 10/07/16 Clinic [Monoject Insulin Syringe] Syring W-Ndl,Disp,Insul,0.5 ml 1 each MC QID #40 unit 09/12/16 10/07/16 Clinic [Monoject Insulin Syringe] Diclofenac Sodium 4 gm TP QID PRN #1 tube 10/01/16 10/07/16 Clinic Azithromycin 1 packet PO QD #6 tab 10/04/16 10/07/16 Clinic Guaifenesin [Mucinex] 600 mg PO BID 10/07/16 10/07/16 History 8. Time, care, counseling and coordination of care for this discharge is greater than 30 minutes. Exam - Vitals Vital Signs: Vital Signs Temperature 97.8 F Temperature Source Temporal Artery Scan Pulse Rate [Pulse Oximeter] 102 Pulse Rate 88 Respiratory Rate 19 Blood Pressure [Right Radial 145/29 Artery] Blood Pressure 142/72 Pulse Ox 93 Oxygen Flow Rate 2 Oxygen Delivery Method Nasal Cannula Height 5 ft 1 in Weight 118.297 kg
== END 2016-10-08 16:28 | disposition home or self-care (01) ==
LOC: ER 06:26 → MED/SURG 10:36 → INTOOBSV 10:36
PROVIDERS: ADMIT Internal Medicine; ATTEND Internal Medicine
DX: G89.29 Other chronic pain (principal); R07.81 Pleurodynia; E11.9 Type 2 diabetes mellitus without complications; K50.90 Crohn's disease, unspecified, without complications; J44.9 Chronic obstructive pulmonary disease, unspecified; E03.9 Hypothyroidism, unspecified
CPT/HCPCS: 36415; 71010; 71275; 78452; 80048; 80053; 82550; 82553; 82948 ×2; 84484; 85025; 85379; 87040; 93005; 93010; 93016; 93017; 93018; 94640 ×2; 94761 ×2; 96374; 99217; 99220; 99284 ×2; A9500; J1815 ×2; J2785; J2405; J7030

== ENCOUNTER → 2016-10-15 | Outpatient (CLI) | payer OTHER | LOC: MMPC 11:11 | PROVIDERS: ATTEND Internal Medicine | DX: R07.9 Chest pain, unspecified (principal); G47.33 Obstructive sleep apnea (adult) (pediatric); E78.2 Mixed hyperlipidemia; E03.9 Hypothyroidism, unspecified; I10 Essential (primary) hypertension; E11.9 Type 2 diabetes mellitus without complications; E66.01 Morbid (severe) obesity due to excess calories; Z87.898 Personal history of other specified conditions | CPT/HCPCS: 99214; G0463 ==

== ENCOUNTER → 2016-12-13 | Outpatient (CLI) | payer OTHER ==
[2016-12-13 17:33] LABS: BASOPHILS # (AUTO) 0.03 10*3/UL; BASOPHILS % (AUTO) 0.6 % (0-1); EOSINOPHILS # (AUTO) 0.23 10*3/UL; EOSINOPHILS % (AUTO) 4.4 % (0-8); HEMATOCRIT 35.9 % (37.0-47.0); HEMOGLOBIN 11.6 g/dL (12.0-16.0); LYMPHOCYTES # (AUTO) 2.18 10*3/uL; MEAN CORPUSCULAR HEMOGLOBIN 29.7 PG (27-31); MEAN CORPUSCULAR HGB CONC 32.3 g/dL (33-37); MEAN CORPUSCULAR VOLUME 91.8 FL (81-99); MEAN PLATELET VOLUME 11.8 FL (7.4-12.2); MONOCYTES % (AUTO) 7.6 % (5-15); NEUTROPHILS # (AUTO) 2.38 10*3/UL; NEUTROPHILS % (AUTO) 45.5 % (50-80); RED BLOOD COUNT 3.91 10^6/uL (4.20-5.40)
[2016-12-13 17:35] LABS: PLATELET MORPHOLOGY COMMENT NORMAL MORPHOLOGY (NORM); RBC MORPHOLOGY COMMENT NORMAL MORPHOLOGY (NORM); WBC MORPHOLOGY COMMENT NORMAL MORPHOLOGY (NORM)
[2016-12-13 17:41] LABS: BUN/CREATININE RATIO 22.85 (6-20); CALCIUM 9.6 mg/dL (8.7-10.7); SERUM ALBUMIN 3.6 g/dL (3.5-4.8)
== END ==
LOC: MOB LAB 16:01
PROVIDERS: ATTEND Internal Medicine
DX: I50.42 Chronic combined systolic (congestive) and diastolic (congestive) heart failure (principal); D64.9 Anemia, unspecified; R60.9 Edema, unspecified
CPT/HCPCS: 11721; 36415; 80053; 83880; 85025; 99212

== ENCOUNTER 2017-12-05 12:06 | Inpatient (IN) ==
[2017-12-05] MEDS ORDERED: DOCUSATE 100 MG CAPSULE PO PRN (12:58)
[2017-12-05] MEDS ORDERED: ONDANSETRON 4 MG/2 ML VIAL IVP PRN (12:58)
[2017-12-05] MEDS ORDERED: HYDROcodone/IBUPROFEN 7.5 MG/200 MG TABLET PO PRN (12:58)
[2017-12-05] MEDS ORDERED: CALCIUM CARBONATE 500 MG (TUMS) CHEWABLE TABLET PO PRN (12:58)
[2017-12-05] MEDS ORDERED: LIDOCAINE W/ SODIUM BICARB 0.5 ML SYR SUBD PRN (12:58)
[2017-12-05] MEDS ORDERED: HYDROmorphone 2 MG/1 ML IVP PRN (12:58)
[2017-12-05] MEDS ORDERED: IPRATROPIUM BROMIDE INASL PRN (13:06)
[2017-12-05] MEDS ORDERED: NITROGLYCERIN 0.4 MG SL TAB (BOTTLE OF 3) SL PRN (13:06)
[2017-12-05] MEDS ORDERED: ALBUTEROL SULFATE 2.5 MG/3 ML NEB PRN (13:06)
[2017-12-05] MEDS ORDERED: Insulin Sliding Scale Protocol SUBCUT PRN (13:11)
[2017-12-05] MEDS ORDERED: DEXTROSE 50%-WATER SYRINGE 50 ML SYRINGE IVP PRN (13:11)
[2017-12-05] MEDS ORDERED: DEXTROSE 31 GM GEL PO PRN (13:11)
[2017-12-05] MEDS ORDERED: Glucagon Inj Vial 1 MG/ML VIAL IM PRN (13:11)
[2017-12-05] MEDS ORDERED: Sodium Chloride 0.9% 1,000 ML PRIMARY IV ONE (13:12)
[2017-12-05] MEDS ORDERED: Levofloxacin 750 MG / 30 ML VIAL IV SCH (13:15)
--- NOTE | 2017-12-05 13:19 | PDOC ---
HPI - History of Present Illness Date of Service: 12/05/17 Time of Service: 13:14 Chief Complaint: Right face swelling History of Present Illness: This very pleasant 71-year-old female with obesity, hypertension, diabetes, amongst other issues, who comes in stating that she has had about 3 weeks of some mastoid pain bilaterally. She states it started actually on the left side. It then progressed to the right side. The right side hurts more now. She noticed some swelling and redness and came into the emergency room and was told that she had herpes zoster and was placed on Valtrex but the symptoms did not improve. She saw her primary care provider, Dr. Gonzalez today, who is suspicious for an orbital cellulitis and possible cavernous venous thrombosis. She was directly admitted to me. She states she's had several surgeries on her right ear in the past including a mastoid clean out and some inner ear surgeries in the past. She may have had a parotid gland resection on the right side as well. She's never had anything is read as this before. She states is tender. She denies any fevers although her temperature is 99.5. She's had no other systemic symptoms of nausea or vomiting or chills or rigors. The patient has penicillin and cefuroxime allergies with blistering on her skin. She states that Tylenol and gabapentin have been used for pain and it has not really manage her facial pain. Her swelling is gotten worse. She states that she has no loss of vision but it does hurt when her eyes move. I did do extraocular muscle testing at bedside and she appears to have intact muscle testing. I discussed with radiology and I think are most important question answer currently is whether this is a preseptal cellulitis or not and whether or not there is a facial abscess as she does have some fluctuance on her cheek that feels as if it could be pocketed and is indurated and could be consistent with an abscess. She last ate this morning. She has not had any chest pain or shortness of breath. No complaints of headache. Past Medical History Medical History: 1. Diabetes type II on insulin. 2. Obstructive sleep apnea on CPAP at night. 3. COPD. 4. Hyperlipidemia. 5. Hypothyroidism. 6. History of breast cancer status post surgery 2011 and chemotherapy with radiation. 7. Depression. 8. Hypertension. 9. Moderate mitral regurgitation. 10. Abnormal stress test in June 2015, patient opted for medical treatment. 11. Chronic anemia. 12. Crohn's disease Surgical History: 1. History of breast cancer status post surgery. 2. Cholecystectomy. 3. Tonsillectomy. 4. Adenoidectomy. 5. Right-sided mastoid surgery. 6. Inner ear surgery on the right side. 7. Possible parotid gland surgery on the right side Family History: Reviewed an Not Pertinent Pertinent Family History: She states that she is adopted. Past Social History: She used to smoke quit a few years ago, rarely drinks. No drugs. Lives with her . Has 2 children. Tobacco Use: Former Smoker In the Past 12 Months, Have Used or Abuse Any of the Following Substance: None Alcohol Use: Rarely Medication / Allergies Home Medications: Home Medications 3 Medication Instructions Recorded Confirmed Type Acetaminophen [Tylenol] 1,000 mg PO PRN PRN 11/14/11 12/02/17 History Ipratropium Wink [Atrovent] 2 spr INASL 3-4XD PRN #1 bottle 06/29/13 History diphenhydrAMINE HCl [Benadryl] 1 cap PO PRN PRN 06/22/15 12/02/17 History Gabapentin 600 mg PO BEDTIME 08/21/16 12/02/17 History Guaifenesin [Mucinex] 600 mg PO BID 10/07/16 12/02/17 History Syringe-Needle,Insulin,0.5 ml 1 ea 5XD #450 box 11/30/16 12/02/17 Rx [Monoject Insulin Syringe] Syringe-Needle,Insulin,0.5 ml 1 ea QID #150 unit 11/30/16 12/02/17 Rx [Monoject Insulin Syringe] gabapentin 300 mg capsule 300 mg PO TID #360 tab 03/11/17 12/02/17 Rx insulin lispro (U-100) 100 unit/mL 0 - 12 unit SUBCUT AC HS #3 vial 03/11/17 Rx subcutaneous solution losartan 100 mg tablet 100 mg PO QDAY #90 tab 04/05/17 12/02/17 Rx mesalamine CR 500 mg 500 mg PO BID #180 cap 04/05/17 12/02/17 Rx capsule,controlled release spironolactone 25 mg tablet 25 mg PO QAM #90 tab 04/09/17 12/02/17 Rx venlafaxine ER 150 mg 150 mg PO QAM #90 cap 04/09/17 12/02/17 Rx capsule,extended release 24 hr blood sugar diagnostic strips 1 strip MISCELLANEOUS QID #360 04/16/17 12/02/17 Rx strip magnesium oxide 250 mg tablet See Label Instructions PO BID tab 04/30/17 History nitroglycerin 0.4 mg sublingual 0.4 mg SL Q5M PRN #20 tab 04/30/17 12/02/17 Rx tablet lorazepam 1 mg tablet 1 mg PO .COMPLEX #2 tab 06/03/17 12/02/17 Rx pantoprazole 40 mg tablet,delayed 40 mg PO BID #180 tab 06/14/17 12/02/17 Rx release levothyroxine 150 mcg tablet 150 mcg PO QDAY #90 tab 08/09/17 12/02/17 Rx albuterol sulfate 2.5 mg/3 mL 2.5 mg CONTINUOUS NEBULIZATION 08/12/17 12/02/17 Rx (0.083 %) solution for nebulization Q4-6H PRN #120 vial lancets 1 ea MISCELLANEOUS QID #360 ea 08/12/17 12/02/17 Rx hydrocortisone 2.5 % topical cream 1 applic [place] QID PRN #28.35 g 10/04/17 Rx with perineal applicator diclofenac 1 % topical gel 4 g TOPICAL QID #100 g 10/11/17 12/02/17 Rx buprenorphine 10 mcg/hour weekly 1 patch TRANSDERM Q7D #4 ea 10/14/17 12/02/17 Rx transdermal patch furosemide 40 mg tablet 120 mg PO BID #540 tab 10/15/17 12/02/17 Rx potassium chloride ER 20 mEq 60 meq PO BID #540 tab 10/15/17 12/02/17 Rx tablet,extended release(part/cryst) transparent dressings 4" X 5 1/2" 0 patch .ROUTE .MEDSUPPLY 11/07/17 12/02/17 History aspirin 325 mg tablet 325 mg PO QDAY tab 11/13/17 12/02/17 History blood-glucose meter 1 ea MISCELLANEOUS QID #1 ea 11/13/17 12/02/17 History insulin glargine (U-100) 100 70 unit SUBCUT QHS vial 11/13/17 12/02/17 History unit/mL subcutaneous solution isosorbide mononitrate ER 30 mg 30 mg PO QDAY tab 11/13/17 12/02/17 History tablet,extended release 24 hr metoprolol succinate ER 25 mg 25 mg PO QDAY #90 tab 11/13/17 12/02/17 Rx tablet,extended release 24 hr tamoxifen 20 mg tablet 20 mg PO QDAY tab 11/13/17 12/02/17 History Allergies/Adverse Reactions: Allergies 3 Allergy/AdvReac Type Severity Reaction Status Date / Time Penicillins Allergy Severe Anaphylaxis Verified 12/05/17 11:04 procaine HCl [From Novocain] Allergy Severe Anaphylaxis Verified 12/05/17 11:04 menthol Allergy Intermediate RASH Verified 12/05/17 11:04 ibuprofen Allergy Mild RASH Verified 12/05/17 11:04 cefuroxime axetil AdvReac Mild causes Verified 12/05/17 11:04 [From Ceftin] redness and blistering feeling in hands steri strips Allergy Mild RASH Uncoded 12/05/17 11:04 benzoine AdvReac Intermediate RASH Uncoded 12/05/17 11:04 Review of Systems - Review of Systems All Systems: Reviewed & No Additional Complaints Except as Stated (I did a 12 point review of systems and it was negative other than that discussed in history present illness and then noted below.) - Ear/Nose Exam Ear/Nose Exam: REPORTS: Tinnitus (Denies tinnitus), See HPI - Respiratory Respiratory: REPORTS: Other (States that she has chronic shortness of breath with no change.) - Cardiovascular Cardiovascular: REPORTS: Negative System Review - Gastrointestinal Gastrointestinal / Abdominal: REPORTS: Negative System Review - Genitourinary Genitourinary: REPORTS: Negative System Review - Neurological Neurologic: REPORTS: Headache (Denies any headaches at this time.) Exam - Vitals Vital Signs: Vital Signs Temperature 99.5 F Temperature Source Oral Pulse Rate [Pulse Oximeter] 88 Respiratory Rate 14 Blood Pressure [Left Arm] 125/64 Pulse Ox 92 Oxygen Delivery Method Room Air Height 5 ft 1 in Weight 255 lb - General General Appearance: No Acute Distress, Cooperative - Head Head Exam: Ecchymosis Additional Head Exam Details: The patient has significant swelling on her right side of her face that extends from her forehead down to the two thirds of her cheek on the right side with some fluctuance on her upper cheek bone on the right side. She has a tender mastoid and feels somewhat mushy on the right side as well. It is red, tender to touch, and is hot to touch. - Eye Eye Exam: POSITIVE: EOMI, No Scleral Icterus, Periorbital Swelling - ENT ENT Exam: POSITIVE: Mucous Membranes Dry - Neck Neck Exam: No Tenderness, No Thyromegaly, JVP is not Raised - Respiratory Respiratory Exam: POSITIVE: Clear to Auscultation - Bilaterally, Breathing Non Labored, Normal to Percussion and Palpation - Cardiovascular Cardiovascular Exam: POSITIVE: RRR, No Clicks, No Gallops, No Rubs, Systolic Murmur, No JVD - GI/Abdominal GI/Abdominal Exam: POSITIVE: Normal Bowel Sounds, Non Tender, Non Distended, Soft - Rectal Rectal Exam: POSITIVE: Deferred - External Exam: POSITIVE: Deferred Exam: POSITIVE: Deferred - Extremities Extremities Exam: POSITIVE: No Clubbing Present, No Cyanosis Present, +1 Edema - Back Back Exam: POSITIVE: No CVA Tenderness - Neurological Neurological Exam: POSITIVE: Alert, Oriented x 3, No Facial Droop, Speech Intact / Clear, Moves All Extremities Equally - Psychiatric Psychiatric Exam: POSITIVE: Normal Affect, Normal Mood Results - Labs Additional Lab Results: I have ordered a CBC with differential, CMP, PT and INR, sedimentation rate, CRP , and MRSA nasal swab. - EKG Data EKG Interpretation: Other (I have ordered an EKG which is pending.) - Imaging Status: Image Pending (I have ordered a CT maxillofacial scan with contrast and it is pending.) Assessment and Plan - Patient Problems (1) Orbital cellulitis on right Status: Acute Code(s): H05.011 - Cellulitis of right orbit (2) Coronary artery disease Status: Acute Code(s): I25.10 - Atherosclerotic heart disease of [place] coronary artery without angina pectoris Qualifiers: Coronary Disease-Associated Artery/Lesion type: [place] artery [place] vs. 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 Qualified Code( s): E11.9 - Type 2 diabetes mellitus without complications; Z79.4 - manager intermediate ( current) use of insulin (4) Benign essential hypertension Status: Chronic Onset Date: 07/05/11 Code(s): I10 - Essential (primary) hypertension (5) Crohn disease Status: Chronic Code(s): K50.90 - Crohn's disease, unspecified, without complications Qualifiers: Gastrointestinal tract location: unspecified location Digestive disease complication type: without complication Qualified Code(s): K50.90 - Crohn's disease, unspecified, without complications - Assessment / Plan Additional Assessment/Plan Details: Admit the patient CODE STATUS confirmed full code IV fluids with a normal saline bolus and get normal saline at 125 an hour. Get several labs including a CMP, CBC with differential, PT and INR, sedimentation rate and CRP, MRSA nasal screen, and blood cultures. Start antibiotics. Given the penicillin and cefuroxime allergies I did review the [facility] guide, and they suggest vancomycin for potential MRSA, and particularly I think this would be a good idea given the patient's diabetes, and then I also read that they suggest moxifloxacin for coverage of Streptococcus pneumoniae amongst other etiologies. So I will dose Levaquin as we do not have moxifloxacin nonformulary. Get a CT scan of the maxillofacial region with contrast, and pending results likely will consider transferring this patient for further evaluation by infectious disease and ear nose and throat as soon as possible. Particularly if there is an abscess present. I discussed the above plan with the patient and she agrees. Nothing by mouth for now. Resume insulin medications and sliding scale as well as every before meals and daily at bedtime blood sugar checks. Medications for pain and fever.
[2017-12-05 14:02] LABS: Hematocrit [HCT] 32.5 % (37.0-47.0); Hemoglobin [HGB] 10.7 g/dL (12.0-16.0); MEAN CORPUSCULAR HGB CONC 32.9 g/dL (33-37); MEAN CORPUSCULAR VOLUME 88.1 FL (81-99); MEAN PLATELET VOLUME 11.6 FL (7.4-12.2); RED BLOOD COUNT 3.69 10^6/uL (4.20-5.40)
[2017-12-05 14:17] LABS: BLOOD UREA NITROGEN 16 mg/dL (7-22); BUN/CREATININE RATIO 22.85 (6-20); SERUM ALBUMIN 3.1 g/dL (3.5-4.8)
[2017-12-05 14:20] LABS: BAND NEUTROPHILS % 5 % (0-10); BASOPHILS % (MANUAL) 0 % (0-1); EOSINOPHILS % (MANUAL) 1 % (0-8); METAMYELOCYTES % 1 %; MONOCYTES % (MANUAL) 6 % (0-12); MYELOCYTES % 0 %; NEUTROPHILS % (MANUAL) 61 % (50-80); PLATELET MORPHOLOGY COMMENT NORMAL MORPHOLOGY (NORM); PROMYELOCYTES % 0 %; RBC MORPHOLOGY COMMENT NORMAL MORPHOLOGY (NORM); WBC MORPHOLOGY COMMENT NORMAL MORPHOLOGY (NORM)
[2017-12-05] MEDS ORDERED: Lidocaine Inj 1% 20 ML ONE (14:23)
--- NOTE | 2017-12-05 14:30 | EKG ---
[address] [place] [address] Measurements Intervals [place] Rate: 82 P: 74 OR: 146 QRS: 0 QRSD: 94 T: -20 QT: 395 QTc: 434 Interpretive Statements SINUS RHYTHM POSSIBLE LEFT ATRIAL ENLARGEMENT SLOW R WAVE PROGRESSION V1-V3. CANNOT R/O ANTEROSEPTAL MS, MORE LIKELY DUE TO LEAD PLACEMENT. Compared to ECG 11/07/2017 22:57:54 Short OR interval no longer present Possible infarct present Electronically Signed On 12-05-17 15:24:07 MDT by Chon Pina [email or web address]
[2017-12-05] MEDS ORDERED: GABAPENTIN 300 MG CAPSULE PO SCH (15:00)
[2017-12-05] MEDS ORDERED: LIDOCAINE HCL 1%/EPI 1:100,000 - 20 ML VIAL IVP ONE (15:53)
--- NOTE | 2017-12-05 16:12 | DI ---
AP CHEST X-RAY, 12/05/2017 3:07 PM : Clinical History: Post internal jugular catheter placement. Verification of catheter tip location. Previous Exam: 10/07/2016. On this view, the patient took a shallow inspiration. There is no acute soft tissue or bony abnormali ty. There is cardiomegaly. Definite CHF is felt not to be present. There is no pneumothorax. The cath eter is inserted from the left internal jugular approach and the catheter tip is barely into the righ t atrium and should be withdrawn about 2 cm. Mediastinal structures are normal. There are no pulmonar y nodules. Readin. There is no pneumothorax following placement of the IJ catheter. The catheter should be withdrawn about 2 cm. 2. Cardiomegaly without definite CHF. There is no acute infiltrate.
[2017-12-05] MEDS ORDERED: Lidocaine 1% 10 MG/ML - 20 ML VIAL IM ONE (16:15)
[2017-12-05] MEDS: Sodium Chloride 0.9% 1,000 ML PRIMARY IV SCH (17:36)
--- NOTE | 2017-12-05 17:39 | DI ---
CT SCAN OF THE MAXILLOFACIAL AREA WITH IV CONTRAST, 12/05/2017 1:02 PM : Clinical History: Periorbital cellulitis. Previous Exam: None at this facility. Scans are obtained from the upper neck to above the frontal sinuses with IV contrast. 45 mL of Isovue 300 was injected IV. Because the injection was performed through the left internal jugular catheter, contrast was injected by hand by myself without complication. The facial bones are normal. There is soft tissue swelling with enhancement of the right lower lid an d this extends laterally consistent with preseptal or periorbital cellulitis. There is no evidence of an abscess. There is no inflammatory change involving the orbital fat or enhancement of the extraocu lar muscles. The superior and inferior ophthalmic veins bilaterally are opacified and normal. There i s no proptosis. The cavernous sinus is opacified with contrast bilaterally making cavernous sinus thr ombosis unlikely. The paranasal sinuses and the ostiomeatal complex are normal. The cerebellum and br ainstem are normal. Almost all of the cerebrum is visualized and they are also normal. There is moder ate cerebral atrophy. The patient is status post right mastoidectomy. There is soft tissue material e xtending into the mastoid antrum that has a direct communication with the external auditory canal. Th is may represent some cerumen although a cholesteatoma cannot be excluded. The right tympanic membran e is thickened. The malleus and incus are encased by soft tissue material and both bones appear distr acted and may be partially subluxed or dislocated. The soft tissue material would represent a cholest eatoma. The inner ear structures are intact. The left side is normal and is used as a control. READIN. There is soft tissue fullness and enhancement along the right lower lid and this extends laterall y. This is consistent with preseptal or periorbital cellulitis. There is no evidence of orbital cellu litis. The superior and inferior ophthalmic veins bilaterally and the cavernous sinus bilaterally are normal. 2. Status post right mastoidectomy. In the mastoid antrum is some soft tissue that may represent cer umen since the antrum communicates with the external auditory canal. The tympanic membrane is thicken ed and there is soft tissue material encasing the malleus and incus. These bones appear distracted an d there may be subluxation secondary to the soft tissue or cholesteatoma. 3. The visualized portions of the cerebrum and cerebellum are normal. There is cerebral atrophy.
[2017-12-05] MEDS ORDERED: Levofloxacin (Premix) 750 MG/150 ML PIGGYBACK IV ONE (17:40)
--- NOTE | 2017-12-05 17:41 | DI ---
AP CHEST X-RAY, 12/05/2017 4:54 PM : Clinical History: Repositioning of left IJ catheter. The catheter was withdrawn 2.5 cm from the previ ous position. Previous Exam: Earlier today at 1525 hours. The catheter now is at the junction of the superior vena cava and left brachiocephalic vein. The ches t x-ray is otherwise unchanged. Reading: The catheter tip now is at the junction of the SVC and left brachiocephalic vein.
[2017-12-05] MEDS: Insulin Lispro Flexpen 300 UNIT/3 ML INSULN.PEN SUBCUT SCH ×2 (17:44→21:03)
[2017-12-05] MEDS: GABAPENTIN 300 MG CAPSULE PO SCH ×2 (17:53→22:32)
[2017-12-05] MEDS: POTASSIUM CHLORIDE 20 MEQ TAB PO SCH (17:53)
[2017-12-05] MEDS: PANTOPRAZOLE 40 MG TABLET PO SCH (17:53)
[2017-12-05] MEDS ORDERED: Levofloxacin (Premix) 750 MG/150 ML PIGGYBACK IV SCH (18:00)
--- NOTE | 2017-12-05 18:16 | PROCEDURE1 ---
Procedure - - Date and Time of Service: 12/05/2017, 1814 Procedure Performed: Central Line : Non Tunneled Procedure Note: Procedure performed: Left Internal jugular central venous catheter placement Indication for procedure: Facial cellulitis, inability to obtain vascular access peripherally, need for antibiotics and IV fluids, with risks discussed as possible arterial puncture, pneumothorax, and localized pain. Benefits for medication administration, blood draws, hemodynamic monitoring, and management of clinical condition. Description of procedure: The patient was prepped and draped in the usual fashion with a full body drape. Ultrasound guidance was used to identify the left IJ vein. The area was cleansed with chlorhexidine. Lidocaine was used for local anesthesia. Using an introducer needle attached to a 5 mL syringe, this was inserted and angled towards the ipsilateral nipple, with ultrasound guidance as well. There was a flash of venous blood as the internal jugular vein was cannulated via the introducer needle. I could see the needle in the internal jugular vein in the Trendelenburg position for the patient. The blood was not pulsatile. A guidewire was inserted through the needle into the internal jugular vein and the needle was removed over the wire. A 10 blade was then used to perform a small dermatotomy at the needle insertion site. The venous dilator was then placed over the guidewire using Seldinger technique, and then removed. 4 port central venous catheter was then placed over the guidewire inserted into the internal jugular vein and the guidewire was removed. All ports were flushed with normal saline. All ports had draw back. It was a 20 cm 8.5 [place] catheter. The catheter was sutured into place, and the skin was cleansed with chlorhexidine and the catheter was dressed. A postprocedure x-ray showed the tip of the catheter on my view was near the cavoatrial junction. I spoke with the radiologist and it was noted that he felt that the catheter tip was in the right atrium and suggested pulling it back 2 cm. I did that, resutured, repeated chest x-ray, and the catheters proximal in the superior vena cava at the junction of the superior vena cava and the brachiocephalic vein. There is no evidence of pneumothorax. I personally reviewed the chest X-ray. Complications: Tip of the catheter on the initial chest x-ray appeared in the cavoatrial junction to proximally in the right atrium. This was withdrawn as mentioned above. Disposition: Patient remains on the medical floor for treatment of facial cellulitis.
[2017-12-05] MEDS ORDERED: Vancomycin-PHA to Dose IV PRN (18:32)
[2017-12-05] MEDS: MESALAMINE 500 MG CAPSULE PO SCH (22:31)
[2017-12-05] MEDS: diphenhydrAMINE 25 MG CAPSULE PO PRN (22:31)
[2017-12-05] MEDS: Insulin Glargine SoloStar Inj 100 UNIT/ML INSULN.PEN SUBCUT SCH (22:32)
[2017-12-05] MEDS: GUAIFENESIN 600 MG TABLET PO SCH (22:32)
[2017-12-06] MEDS: Sodium Chloride 0.9% 1,000 ML PRIMARY IV SCH ×3 (02:19→20:36)
[2017-12-06] MEDS: LEVOTHYROXINE 75 MCG TABLET PO SCH (04:37)
[2017-12-06] MEDS ORDERED: HEPARIN 500 UNIT/5 ML SYRINGE FOR CENTRAL LINE IVP ONE (04:50)
[2017-12-06 05:48] LABS: BASOPHILS # (AUTO) 0.02 10*3/UL; BASOPHILS % (AUTO) 0.3 % (0-1); EOSINOPHILS # (AUTO) 0.15 10*3/UL; EOSINOPHILS % (AUTO) 2.2 % (0-8); Hematocrit [HCT] 32.7 % (37.0-47.0); Hemoglobin [HGB] 10.4 g/dL (12.0-16.0); LYMPHOCYTES # (AUTO) 2.29 10*3/uL; MEAN CORPUSCULAR HEMOGLOBIN 28.4 PG (27-31); MEAN CORPUSCULAR HGB CONC 31.8 g/dL (33-37); MEAN CORPUSCULAR VOLUME 89.3 FL (81-99); MEAN PLATELET VOLUME 11.9 FL (7.4-12.2); MONOCYTES # (AUTO) 0.63 10*3/UL (0.3-0.8); MONOCYTES % (AUTO) 9.1 % (5-15); NEUTROPHILS # (AUTO) 3.79 10*3/UL; NEUTROPHILS % (AUTO) 54.9 % (50-80); RED BLOOD COUNT 3.66 10^6/uL (4.20-5.40)
[2017-12-06 06:04] LABS: PLATELET MORPHOLOGY COMMENT NORMAL MORPHOLOGY (NORM); RBC MORPHOLOGY COMMENT NORMAL MORPHOLOGY (NORM); WBC MORPHOLOGY COMMENT NORMAL MORPHOLOGY (NORM)
[2017-12-06 06:08] LABS: BLOOD UREA NITROGEN 12 mg/dL (7-22)
[2017-12-06] MEDS: FUROSEMIDE 40 MG TABLET PO SCH ×2 (07:14→12:13)
[2017-12-06] MEDS: PANTOPRAZOLE 40 MG TABLET PO SCH ×2 (07:14→16:43)
[2017-12-06] MEDS: diphenhydrAMINE 25 MG CAPSULE PO PRN ×2 (07:14→20:35)
[2017-12-06] MEDS: POTASSIUM CHLORIDE 20 MEQ TAB PO SCH ×2 (07:14→16:43)
[2017-12-06] MEDS: HYDROcodone-APAP 5 MG -325 MG TABLET PO PRN ×3 (07:18→16:43)
[2017-12-06] MEDS: Insulin Lispro Flexpen 300 UNIT/3 ML INSULN.PEN SUBCUT SCH ×4 (07:29→22:04)
[2017-12-06] MEDS: GUAIFENESIN 600 MG TABLET PO SCH ×2 (08:00→20:35)
[2017-12-06] MEDS: ISOSORBIDE MONONITRATE 30 MG SR 24H TABLET PO SCH (08:00)
[2017-12-06] MEDS: Spironolactone Tab 25 MG TAB PO SCH (08:00)
[2017-12-06] MEDS: VENLAFAXINE XR 75 MG CAP PO SCH (08:00)
[2017-12-06] MEDS: GABAPENTIN 300 MG CAPSULE PO SCH ×4 (08:00→20:34)
[2017-12-06] MEDS: MESALAMINE 500 MG CAPSULE PO SCH ×2 (08:00→20:35)
[2017-12-06] MEDS: METOPROLOL SUCCINATE 25 MG SR 24H TABLET PO SCH (08:00)
--- NOTE | 2017-12-06 14:00 | PDOC(PROG) ---
Date of Service: 12/06/17 Time of Service: 13:53 Interval History: Headaches are present but better. No proptosis. No nausea or vomiting or chest pain or shortness of breath. Eye movements do not hurt. She states that her ear itches. Objective : Data - Labs CBC and BMP: 12/06/17 04:50 12/06/17 04:50 Additional Lab Results: Selected Entries 12/06/17 07:00 12/06/17 11:00 Finger Stick Blood Glucose 100 121 H Objective : Exam - General General Appearance: No Acute Distress, Cooperative Additional General Exam Details: Vital Signs - Last Taken Temperature 97.8 F 12/06/17 13:00 Pulse Rate 72 12/06/17 13:00 Respiratory Rate 20 12/06/17 13:00 Blood Pressure 136/48 12/06/17 13:00 Pulse Ox 95 12/06/17 13:33 - Head Additional Head Exam Details: Erythema and swelling on the right face has significantly improved. Ears decreased in terms of swelling by over 50%. - Eye Eye Exam: No Scleral Icterus - ENT ENT Exam: Mucous Membranes Moist Additonal ENT Exam Details: Bulging tympanic membrane on right. Possible cholesteatoma at 1:00 in the external auditory canal. - Respiratory Respiratory Exam: Clear to Auscultation - Bilaterally, Breathing Non Labored - Cardiovascular Cardiovascular Exam: RRR, No Clicks, No Gallops, No Rubs, Systolic Murmur, No JVD - GI/Abdominal GI/Abdominal Exam: Normal Bowel Sounds, Non Tender, Non Distended, Soft - Extremities Extremities Exam: No Clubbing Present, No Cyanosis Present, +1 Edema - Neurological Neurological Exam: Alert, Oriented x 3, No Facial Droop, Speech Intact / Clear, Moves All Extremities Equally - Central Line Examination Central Line Type: Triple Lumen Cath (Quad-Lumen catheter left internal jugular vein, no erythema.) Assessment and Plan - Patient Problems (1) Orbital cellulitis on right Current Visit: Yes Status: Acute Code(s): H05.011 - Cellulitis of right orbit (2) Coronary artery disease Current Visit: Yes Status: Chronic Code(s): I25.10 - Atherosclerotic heart disease of [place] coronary artery without angina pectoris Qualifiers: Coronary Disease-Associated Artery/Lesion type: [place] artery [place] vs. transplanted heart: [place] heart Associated angina: without angina Qualified Code(s): I25.10 - Atherosclerotic heart disease of [place] coronary artery without angina pectoris (3) Type 2 diabetes mellitus without complication Current Visit: Yes Status: Acute Onset Date: 07/02/16 Code(s): E11.9 - Type 2 diabetes mellitus without complications Qualifiers: Diabetes mellitus [facility] insulin use: with mcc use Qualified Code( s): E11.9 - Type 2 diabetes mellitus without complications; Z79.4 - [facility] ( current) use of insulin (4) Benign essential hypertension Current Visit: Yes Status: Chronic Onset Date: 07/05/11 Code(s): I10 - Essential (primary) hypertension (5) Crohn disease Current Visit: Yes Status: Chronic Code(s): K50.90 - Crohn's disease, unspecified, without complications Qualifiers: Gastrointestinal tract location: unspecified location Digestive disease complication type: without complication Qualified Code(s): K50.90 - Crohn's disease, unspecified, without complications - Assessment / Plan Additional Assessment/Plan Details: Continue Levaquin and vancomycin, day #2 of antibiotics. I got patient scheduled with infectious disease next 12/13/[address] Stewart. We have patient follow-up scheduled here nose and throat on 12/10/2017 , at 3:45 PM. I placed a call to Dr. Zimmerman but have not heard back yet. I think the patient may have a cholesteatoma. I'm anticipating at least 2 weeks of IV antibiotics. Check CBC in morning. Discussed with pharmacy. They will continue vancomycin and trough management over the weekend. Reassuring that MRSA is negative. Definitely not ready to leave the hospital yet. I think this cellulitis needs to improve significantly more prior to discharge plan. I would anticipate at least 3 more midnights.
[2017-12-06] MEDS: Insulin Glargine SoloStar Inj 100 UNIT/ML INSULN.PEN SUBCUT SCH (20:33)
[2017-12-06] MEDS: HYDROCORTISONE 1% CREAM - 28.35 GM TOPICAL SCH (22:05)
[2017-12-07] MEDS: LEVOTHYROXINE 75 MCG TABLET PO SCH (04:48)
[2017-12-07] MEDS: Sodium Chloride 0.9% 1,000 ML PRIMARY IV SCH ×2 (06:43→17:11)
[2017-12-07] MEDS: PANTOPRAZOLE 40 MG TABLET PO SCH ×2 (07:24→16:53)
[2017-12-07] MEDS: FUROSEMIDE 40 MG TABLET PO SCH ×2 (07:24→13:27)
[2017-12-07] MEDS: diphenhydrAMINE 25 MG CAPSULE PO PRN ×2 (07:24→19:08)
[2017-12-07] MEDS: POTASSIUM CHLORIDE 20 MEQ TAB PO SCH ×2 (07:24→16:53)
[2017-12-07 07:39] LABS: BASOPHILS # (AUTO) 0.02 10*3/UL; BASOPHILS % (AUTO) 0.3 % (0-1); EOSINOPHILS # (AUTO) 0.24 10*3/UL; EOSINOPHILS % (AUTO) 3.1 % (0-8); Hematocrit [HCT] 34.8 % (37.0-47.0); Hemoglobin [HGB] 11.4 g/dL (12.0-16.0); LYMPHOCYTES # (AUTO) 2.83 10*3/uL; MEAN CORPUSCULAR HEMOGLOBIN 29.2 PG (27-31); MEAN CORPUSCULAR HGB CONC 32.8 g/dL (33-37); MEAN PLATELET VOLUME 11.4 FL (7.4-12.2); MONOCYTES # (AUTO) 0.56 10*3/UL (0.3-0.8); MONOCYTES % (AUTO) 7.3 % (5-15); NEUTROPHILS # (AUTO) 3.93 10*3/UL; NEUTROPHILS % (AUTO) 51.5 % (50-80); RED BLOOD COUNT 3.91 10^6/uL (4.20-5.40)
[2017-12-07] MEDS: Insulin Lispro Flexpen 300 UNIT/3 ML INSULN.PEN SUBCUT SCH ×4 (07:39→20:09)
[2017-12-07 07:42] LABS: PLATELET MORPHOLOGY COMMENT NORMAL MORPHOLOGY (NORM); RBC MORPHOLOGY COMMENT NORMAL MORPHOLOGY (NORM); WBC MORPHOLOGY COMMENT NORMAL MORPHOLOGY (NORM)
[2017-12-07 08:00] LABS: BLOOD UREA NITROGEN 16 mg/dL (7-22); BUN/CREATININE RATIO 22.85 (6-20)
[2017-12-07] MEDS: GUAIFENESIN 600 MG TABLET PO SCH ×2 (08:35→20:16)
[2017-12-07] MEDS: GABAPENTIN 300 MG CAPSULE PO SCH ×4 (08:35→20:15)
[2017-12-07] MEDS: HYDROcodone-APAP 5 MG -325 MG TABLET PO PRN (08:35)
[2017-12-07] MEDS: ISOSORBIDE MONONITRATE 30 MG SR 24H TABLET PO SCH (08:35)
[2017-12-07] MEDS: MESALAMINE 500 MG CAPSULE PO SCH ×2 (08:35→20:16)
[2017-12-07] MEDS: Spironolactone Tab 25 MG TAB PO SCH (08:36)
[2017-12-07] MEDS: METOPROLOL SUCCINATE 25 MG SR 24H TABLET PO SCH (08:36)
[2017-12-07] MEDS: HYDROCORTISONE 1% CREAM - 28.35 GM TOPICAL SCH ×2 (08:36→20:18)
[2017-12-07] MEDS: VENLAFAXINE XR 75 MG CAP PO SCH (08:36)
[2017-12-07] MEDS ORDERED: Sodium Chloride 0.9% 1,000 ML PRIMARY IV SCH (12:45)
--- NOTE | 2017-12-07 16:43 | PDOC(PROG) ---
Date of Service: 12/07/17 Time of Service: 16:39 Interval History: No chest pain. No shortness breath. Feels much better. Headaches gone. No pain with IV movements and no proptosis. Eating well. Patient was seen and evaluated earlier today. RN is changing Suboxone patch which she normally does on this day. Objective : Data - Labs CBC and BMP: 12/07/17 07:30 12/07/17 07:30 Additional Lab Results: Selected Entries 12/07/17 07:00 12/07/17 11:00 12/07/17 16:00 Finger Stick Blood Glucose 79 L 138 H 118 H Objective : Exam - General General Appearance: No Acute Distress, Cooperative Additional General Exam Details: Vital Signs - Last Taken Temperature 97.5 F 12/07/17 16:24 Pulse Rate 80 12/07/17 16:24 Respiratory Rate 18 12/07/17 16:24 Blood Pressure 151/70 12/07/17 16:24 Pulse Ox 96 12/07/17 16:24 - Eye Additional Eye Exam Details: Swelling and ear is decreased. Erythema decreased. There is some desquamation on the face. Less tender to palpation and not nearly as hot. - ENT ENT Exam: Mucous Membranes Moist - Respiratory Respiratory Exam: Clear to Auscultation - Bilaterally, Breathing Non Labored - Cardiovascular Cardiovascular Exam: RRR, No Murmur, No Clicks, No Gallops, No Rubs, No JVD - GI/Abdominal GI/Abdominal Exam: Normal Bowel Sounds, Non Tender, Non Distended, Soft - Extremities Extremities Exam: No Edema Present, No Cyanosis Present, +1 Edema - Neurological Neurological Exam: Alert, Oriented x 3, No Facial Droop, Speech Intact / Clear, Moves All Extremities Equally Assessment and Plan - Patient Problems (1) Orbital cellulitis on right Current Visit: Yes Status: Acute Code(s): H05.011 - Cellulitis of right orbit (2) Coronary artery disease Current Visit: Yes Status: Chronic Code(s): I25.10 - Atherosclerotic heart disease of [place] coronary artery without angina pectoris Qualifiers: Coronary Disease-Associated Artery/Lesion type: [place] artery [place] vs. transplanted heart: [place] heart Associated angina: without angina Qualified Code(s): I25.10 - Atherosclerotic heart disease of [place] coronary artery without angina pectoris (3) Type 2 diabetes mellitus without complication Current Visit: Yes Status: Acute Onset Date: 07/02/16 Code(s): E11.9 - Type 2 diabetes mellitus without complications Qualifiers: Diabetes mellitus [facility] insulin use: with oil heaterman use Qualified Code( s): E11.9 - Type 2 diabetes mellitus without complications; Z79.4 - [facility] ( current) use of insulin (4) Benign essential hypertension Current Visit: Yes Status: Chronic Onset Date: 07/05/11 Code(s): I10 - Essential (primary) hypertension (5) Crohn disease Current Visit: Yes Status: Chronic Code(s): K50.90 - Crohn's disease, unspecified, without complications Qualifiers: Gastrointestinal tract location: unspecified location Digestive disease complication type: without complication Qualified Code(s): K50.90 - Crohn's disease, unspecified, without complications - Assessment / Plan Additional Assessment/Plan Details: Continue Levaquin and vancomycin, day #3 Stop IV fluids. I spoke with ear nose and throat, Dr. Zimmerman will see the patient on Saturday and we will keep her nothing by mouth postmidnight tomorrow just in case he needs to do wash out of the middle ear. Continue home medications. Blood sugars okay.
[2017-12-07] MEDS ORDERED: Levofloxacin (Premix) 750 MG/150 ML PIGGYBACK IV SCH (18:00)
[2017-12-07] MEDS ORDERED: Sodium Chloride 0.9% 500 ML ONE (18:51)
[2017-12-07] MEDS: ACETAMINOPHEN 325 MG TABLET PO PRN (19:07)
[2017-12-07] MEDS: Insulin Glargine SoloStar Inj 100 UNIT/ML INSULN.PEN SUBCUT SCH (20:16)
[2017-12-08] MEDS: PANTOPRAZOLE 40 MG TABLET PO SCH ×2 (06:49→16:40)
[2017-12-08] MEDS: POTASSIUM CHLORIDE 20 MEQ TAB PO SCH ×2 (06:49→16:40)
[2017-12-08] MEDS: LEVOTHYROXINE 75 MCG TABLET PO SCH (06:49)
[2017-12-08] MEDS: FUROSEMIDE 40 MG TABLET PO SCH ×2 (06:49→13:15)
[2017-12-08] MEDS: diphenhydrAMINE 25 MG CAPSULE PO PRN (07:38)
[2017-12-08] MEDS: Insulin Lispro Flexpen 300 UNIT/3 ML INSULN.PEN SUBCUT SCH ×4 (07:49→20:55)
[2017-12-08] MEDS: VENLAFAXINE XR 75 MG CAP PO SCH (08:41)
[2017-12-08] MEDS: Spironolactone Tab 25 MG TAB PO SCH (08:41)
[2017-12-08] MEDS: GUAIFENESIN 600 MG TABLET PO SCH ×2 (08:41→20:48)
[2017-12-08] MEDS: GABAPENTIN 300 MG CAPSULE PO SCH ×4 (08:41→20:48)
[2017-12-08] MEDS: HEPARIN 500 UNIT/5 ML SYRINGE FOR CENTRAL LINE IVP PRN (08:41)
[2017-12-08] MEDS: MESALAMINE 500 MG CAPSULE PO SCH ×2 (08:41→20:48)
[2017-12-08] MEDS: ACETAMINOPHEN 325 MG TABLET PO PRN (08:42)
[2017-12-08] MEDS: HYDROCORTISONE 1% CREAM - 28.35 GM TOPICAL SCH ×2 (08:42→20:49)
[2017-12-08] MEDS: ISOSORBIDE MONONITRATE 30 MG SR 24H TABLET PO SCH (08:43)
[2017-12-08] MEDS: METOPROLOL SUCCINATE 25 MG SR 24H TABLET PO SCH (08:43)
--- NOTE | 2017-12-08 15:39 | PDOC(PROG) ---
Date of Service: 12/08/17 Time of Service: 15:34 Interval History: No chest pain, no shortness breath, no nausea or vomiting. Has some headaches occasionally but well controlled in terms of pain and Tylenol seems to help those. She is a little apprehensive about a PICC line given that she heart he has a central line but she states that she will think about doing the PICC line procedure. I think she will need 2 weeks of vancomycin and I told her that we can switch the Levaquin to by mouth. ENT to see tomorrow and I'll keep her nothing by mouth postmidnight. Objective : Data - Labs CBC and BMP: 12/07/17 07:30 12/07/17 07:30 Additional Lab Results: Selected Entries 12/08/17 00:00 12/08/17 07:00 12/08/17 11:00 Finger Stick Blood Glucose 167 H 150 H 123 H Objective : Exam - General General Appearance: No Acute Distress, Cooperative Additional General Exam Details: Vital Signs - Last Taken Temperature 97.9 F 12/08/17 11:35 Pulse Rate 79 12/08/17 11:35 Respiratory Rate 20 12/08/17 11:35 Blood Pressure 148/87 12/08/17 11:35 Pulse Ox 95 12/08/17 11:35 - Head Additional Head Exam Details: Erythema significantly improved on right face. Swelling is nearly resolved. There is some desquamation, but it does not appear to be leaving any significant lesions or lack of facial protection. In other words, some sloughing of skin. - Eye Eye Exam: No Scleral Icterus - ENT ENT Exam: Mucous Membranes Moist Additonal ENT Exam Details: Tympanic membrane on the right is more bulging, little more erythematous but external auditory canal does look better. The masslike appearance at the 1 o' clock position medially in the external auditory canal does look a little bit better. - Respiratory Respiratory Exam: Clear to Auscultation - Bilaterally, Breathing Non Labored - Cardiovascular Cardiovascular Exam: RRR, No Murmur, No Clicks, No Gallops, No Rubs, No JVD - GI/Abdominal GI/Abdominal Exam: Normal Bowel Sounds, Non Tender, Non Distended, Soft - Extremities Extremities Exam: No Clubbing Present, No Cyanosis Present, +1 Edema - Neurological Neurological Exam: Alert, Oriented x 3, No Facial Droop, Speech Intact / Clear, Moves All Extremities Equally - Central Line Examination Central Line Type: Triple Lumen Cath (Has quad lumen and left internal jugular vein, no erythema. Spoke with RN and the plan is to redress today.) Assessment and Plan - Patient Problems (1) Orbital cellulitis on right Current Visit: Yes Status: Acute Code(s): H05.011 - Cellulitis of right orbit (2) Coronary artery disease Current Visit: Yes Status: Chronic Code(s): I25.10 - Atherosclerotic heart disease of [place] coronary artery without angina pectoris Qualifiers: Coronary Disease-Associated Artery/Lesion type: [place] artery [place] vs. transplanted heart: [place] heart Associated angina: without angina Qualified Code(s): I25.10 - Atherosclerotic heart disease of [place] coronary artery without angina pectoris (3) Type 2 diabetes mellitus without complication Current Visit: Yes Status: Acute Onset Date: 07/02/16 Code(s): E11.9 - Type 2 diabetes mellitus without complications Qualifiers: Diabetes mellitus [facility] insulin use: with oysterman use Qualified Code( s): E11.9 - Type 2 diabetes mellitus without complications; Z79.4 - [facility] ( current) use of insulin (4) Benign essential hypertension Current Visit: Yes Status: Chronic Onset Date: 07/05/11 Code(s): I10 - Essential (primary) hypertension (5) Crohn disease Current Visit: Yes Status: Chronic Code(s): K50.90 - Crohn's disease, unspecified, without complications Qualifiers: Gastrointestinal tract location: unspecified location Digestive disease complication type: without complication Qualified Code(s): K50.90 - Crohn's disease, unspecified, without complications - Assessment / Plan Additional Assessment/Plan Details: Antibiotics, Levaquin and vancomycin, day 4. Has allergies to cephalosporins and penicillins with blistering of skin. We are giving Benadryl prior to the vancomycin infusions. Eating 2 weeks of antibiotics and would like to place PICC line if the patient will allow us to tomorrow to get rid of the central line, but if she does not then we may need to get the central line through her vancomycin infusions. I'll switch the Levaquin to by mouth now. ENT evaluation tomorrow and possible surgery on the right ear tomorrow. Check labs in a.m. Given nothing by mouth status after midnight and possible surgery, reduce Lantus to 35 units tonight. This will need to be changed back to 70 units tomorrow. I would anticipate that if all goes well, we might be able to get the patient discharged by about Saturday at the latest with outpatient vancomycin and Levaquin with labs and infectious disease follow-up on Saturday.
[2017-12-08] MEDS ORDERED: Insulin Glargine SoloStar Inj 100 UNIT/ML INSULN.PEN SUBCUT SCH (21:00)
[2017-12-09] MEDS: HEPARIN 500 UNIT/5 ML SYRINGE FOR CENTRAL LINE IVP PRN ×2 (05:10→20:58)
[2017-12-09] MEDS: LEVOTHYROXINE 75 MCG TABLET PO SCH (05:10)
[2017-12-09 05:42] LABS: BASOPHILS # (AUTO) 0.03 10*3/UL; BASOPHILS % (AUTO) 0.3 % (0-1); EOSINOPHILS # (AUTO) 0.28 10*3/UL; Hematocrit [HCT] 39.6 % (37.0-47.0); Hemoglobin [HGB] 13.1 g/dL (12.0-16.0); MEAN CORPUSCULAR HEMOGLOBIN 28.5 PG (27-31); MEAN CORPUSCULAR HGB CONC 33.1 g/dL (33-37); MEAN CORPUSCULAR VOLUME 86.3 FL (81-99); MEAN PLATELET VOLUME 11.5 FL (7.4-12.2); MONOCYTES % (AUTO) 7.5 % (5-15); NEUTROPHILS # (AUTO) 4.31 10*3/UL; NEUTROPHILS % (AUTO) 45.9 % (50-80); RED BLOOD COUNT 4.59 10^6/uL (4.20-5.40)
[2017-12-09 06:04] LABS: BLOOD UREA NITROGEN 23 mg/dL (7-22)
[2017-12-09 06:07] LABS: PLATELET MORPHOLOGY COMMENT NORMAL MORPHOLOGY (NORM); RBC MORPHOLOGY COMMENT NORMAL MORPHOLOGY (NORM); WBC MORPHOLOGY COMMENT NORMAL MORPHOLOGY (NORM)
[2017-12-09] MEDS: Insulin Lispro Flexpen 300 UNIT/3 ML INSULN.PEN SUBCUT SCH ×4 (07:26→20:58)
[2017-12-09] MEDS: diphenhydrAMINE 25 MG CAPSULE PO PRN (08:52)
--- NOTE | 2017-12-09 10:08 | PDOC(PROG) ---
Date of Service: 12/09/17 Time of Service: 10:00 Interval History: Subjective Patient feels better compared to when she came in, she came in with swelling redness on the right side of the face she Was diagnosed with cellulitis things are improving now compared to when she came in. However since she is nothing by mouth today so she said she is a little bit dizzy and hungry. No other symptoms. Objective : Data - Labs CBC and BMP: 12/09/17 05:20 12/09/17 05:20 Objective : Exam - General General Appearance: No Acute Distress, Cooperative, Morbidly Obese - Head Additional Head Exam Details: There is some DC: The patient on the right cheek noted with no significant redness. - Eye Eye Exam: Normal Appearance - ENT Additonal ENT Exam Details: I don't see significant swelling in the external ear. There is some bulging of the membrane I can see. - Neck Neck Exam: Normal Inspection - Respiratory Respiratory Exam: Clear to Auscultation - Bilaterally - Cardiovascular Cardiovascular Exam: RRR - GI/Abdominal GI/Abdominal Exam: Normal Bowel Sounds, Non Tender, Non Distended, Soft, No Organomegaly - Rectal Rectal Exam: Deferred - External Exam: Deferred - Extremities Extremities Exam: Normal Inspection - Back Back Exam: Normal Inspection - Neurological Neurological Exam: Alert, Oriented x 3, CN II-XII Intact, No Facial Droop, Speech Intact / Clear, Moves All Extremities Equally - Psychiatric Psychiatric Exam: Normal Affect - Integumentary Integumentary Exam: Normal Color - Central Line Examination Central Line Present on Admission: Yes Central Line Location: Internal jugular (L) Assessment and Plan - Patient Problems (1) Orbital cellulitis on right Current Visit: Yes Status: Acute Comment: Continue current IV antibiotics. She will be seen today by Dr. Zimmerman from ENT and then depending on his decision will decide when to have a PICC line. She is okay with ordering a PICC line I think ordered for tomorrow if he have surgery today if not will ordered for today. Code(s): H05.011 - Cellulitis of right orbit (2) Crohn disease Current Visit: Yes Status: Chronic Comment: She is on Pentasa continue Code(s): K50.90 - Crohn's disease, unspecified, without complications Qualifiers: Gastrointestinal tract location: unspecified location Digestive disease complication type: without complication Qualified Code(s): K50.90 - Crohn's disease, unspecified, without complications (3) Benign essential hypertension Current Visit: Yes Status: Chronic Onset Date: 07/05/11 Comment: Same medication Code(s): I10 - Essential (primary) hypertension (4) Type 2 diabetes mellitus without complication Current Visit: Yes Status: Acute Onset Date: 07/02/16 Comment: Continue insulin Code(s): E11.9 - Type 2 diabetes mellitus without complications Qualifiers: Diabetes mellitus [facility]p insulin use: with watermaster use Qualified Code( s): E11.9 - Type 2 diabetes mellitus without complications; Z79.4 - [facility] ( current) use of insulin (5) Coronary artery disease Current Visit: Yes Status: Chronic Comment: She is on beta hany and Imdur continue Code(s): I25.10 - Atherosclerotic heart disease of [place] coronary artery without angina pectoris Qualifiers: Coronary Disease-Associated Artery/Lesion type: [place] artery [place] vs. transplanted heart: [place] heart Associated angina: without angina Qualified Code(s): I25.10 - Atherosclerotic heart disease of [place] coronary artery without angina pectoris
[2017-12-09] MEDS: FUROSEMIDE 40 MG TABLET PO SCH ×2 (10:21→12:44)
[2017-12-09] MEDS: POTASSIUM CHLORIDE 20 MEQ TAB PO SCH ×2 (10:21→17:04)
[2017-12-09] MEDS: PANTOPRAZOLE 40 MG TABLET PO SCH ×2 (10:22→17:04)
[2017-12-09] MEDS: GABAPENTIN 300 MG CAPSULE PO SCH ×4 (11:42→20:57)
[2017-12-09] MEDS ORDERED: Lidocaine 1% 10 MG/ML - 20 ML VIAL SUBCUT PRN (12:28)
[2017-12-09] MEDS ORDERED: HEPARIN 500 UNIT/5 ML SYRINGE FOR CENTRAL LINE IVP PRN (12:28)
[2017-12-09] MEDS ORDERED: LIDOCAINE 2% 20 MG/ML - 20 ML VIAL SUBCUT PRN (12:28)
[2017-12-09] MEDS: MESALAMINE 500 MG CAPSULE PO SCH ×2 (12:44→20:57)
[2017-12-09] MEDS: GUAIFENESIN 600 MG TABLET PO SCH ×2 (12:44→20:58)
[2017-12-09] MEDS: Spironolactone Tab 25 MG TAB PO SCH (12:44)
[2017-12-09] MEDS: VENLAFAXINE XR 75 MG CAP PO SCH (12:44)
[2017-12-09] MEDS: ISOSORBIDE MONONITRATE 30 MG SR 24H TABLET PO SCH (12:44)
[2017-12-09] MEDS: METOPROLOL SUCCINATE 25 MG SR 24H TABLET PO SCH (12:44)
[2017-12-09] MEDS: HYDROCORTISONE 1% CREAM - 28.35 GM TOPICAL SCH ×2 (12:45→21:02)
--- NOTE | 2017-12-09 15:33 | DI ---
XR PICC Line Insertion 5 Yrs>, US Vascular Access-US Guidance,12/09/2017 12:29 PM: INSERTION OF PICC LINE WITH FLUOROSCOPIC GUIDANCE, 12/09/2017 12:29 PM: Clinical History: Facial cellulitis. Technique: After informed, signed consent was obtained, the right arm was prepped with Betadine and a lcohol. Venipuncture was achieved as described with the ultrasound report and the introducer sheath w as positioned in place using the Seldinger technique with local anesthesia (1% Lidocaine without epin ephrine). A 4 Tamazight double lumen Bard Power Picc Solo PICC catheter was inserted and the tip was positioned w ith fluoroscopic guidance. Fluoroscopic documentation was with a spot film. The standard dry sterile dressing kit was used to secure the catheter. Final catheter documentation w as with a spot film of the chest and this film confirmed that the catheter tip was in the right subcl tu vein. The patient tolerated the procedure well and was discharged in stable condition. Standard instructions regarding wound care precautions and dressing changes were discussed with the patient p rior to discharge. Stripper Soft Plastic: Dr. Ricco garcias M.D. Technology Sales Representative: None. Complications: None. Reading: PICC line placement as above.
[2017-12-09] MEDS ORDERED: Insulin Glargine SoloStar Inj 100 UNIT/ML INSULN.PEN SUBCUT SCH (21:00)
[2017-12-10] MEDS: LEVOTHYROXINE 75 MCG TABLET PO SCH (05:27)
[2017-12-10 05:34] VITALS: O2SAT 92
[2017-12-10] MEDS: POTASSIUM CHLORIDE 20 MEQ TAB PO SCH (06:58)
[2017-12-10] MEDS: PANTOPRAZOLE 40 MG TABLET PO SCH (06:58)
[2017-12-10] MEDS: FUROSEMIDE 40 MG TABLET PO SCH (06:58)
[2017-12-10 07:03] VITALS: BP 126/67; RESP 20; TEMP 97.2
[2017-12-10] MEDS: Insulin Lispro Flexpen 300 UNIT/3 ML INSULN.PEN SUBCUT SCH (07:04)
--- NOTE | 2017-12-10 08:14 | DCSUMMARY ---
Hospitalization Summary Admit Date: 12/05/2017 Discharge Date: 12/10/17 Hospital Course: Discharge diagnoses 1. Facial cellulitis 2. Diabetes 3. Hypertension 4. History of Crohn's disease 5. History of sleep apnea 6. History of breast cancer status post surgery in 2011 7. Coronary artery disease on medical treatment 8. Hypothyroidism 9. Hyperlipidemia 10. History of moderate mitral regurgitation 11. History of mastoid surgery before Hospital course This is a 71 years old female with medical history significant for history of hypertension, obesity, diabetes who was sent into the hospital because of facial swelling and redness on the right side. Initially she came into the ER was told that she had herpes and was placed on Valtrex however symptoms did not improve. She saw Dr. Gonzalez on the day of admission and there was suspicion of cellulitis so she was directly admitted to the hospital. Patient was started on IV antibiotics with vancomycin and Levaquin. A CT of the maxillary sinus showed soft tissue fullness and enhancement along the right lower lid and this extends laterally. This is consistent with preseptal or periorbital cellulitis. There is no evidence of orbital cellulitis. There is also patent veins. The case was discussed with infectious disease with [facility] they agreed with the current management. IV antibiotics were continued and gradually there was improvement in the swelling and the redness and improvement in her symptoms. Initially because of difficult IV she had a central line. I saw her later on during her hospital stay Dr. Francis spoke with Dr. Zimmerman who came and saw the patient did not think that the patient needs surgery and she will follow -up with him as an outpatient. On the day of discharge she was doing better no significant redness or swelling there was desquamation noted on the right and face and also in the right ear, tympanic membrane showed some bulging. Clinically she is much improved compared to when she came in so we thought that she could be discharged home finish her course of IV antibiotics to follow-up with the infectious disease and with ENT. Her central line was removed and she had a PICC line. Discharge instruction Diet regular Activity as started Medications Current Medication(s) 3 Medication Instructions Recorded Confirmed Type Acetaminophen [Tylenol] 1,000 mg PO PRN PRN 11/14/11 12/02/17 History Ipratropium [place] [Atrovent] 2 spr INASL 3-4XD PRN #1 bottle 06/29/13 History diphenhydrAMINE HCl [Benadryl] 1 cap PO PRN PRN 06/22/15 12/02/17 History Gabapentin 600 mg PO BEDTIME 08/21/16 12/02/17 History Guaifenesin [Mucinex] 600 mg PO BID 10/07/16 12/02/17 History Syringe-Needle,Insulin,0.5 ml 1 ea 5XD #450 box 11/30/16 12/02/17 Rx [Monoject Insulin Syringe] Syringe-Needle,Insulin,0.5 ml 1 ea QID #150 unit 11/30/16 12/02/17 Rx [Monoject Insulin Syringe] gabapentin 300 mg capsule 300 mg PO TID #360 tab 03/11/17 12/02/17 Rx insulin lispro (U-100) 100 unit/mL 0 - 12 unit SUBCUT AC HS #3 vial 03/11/17 Rx subcutaneous solution losartan 100 mg tablet 100 mg PO QDAY #90 tab 04/05/17 12/02/17 Rx mesalamine CR 500 mg 500 mg PO BID #180 cap 04/05/17 12/02/17 Rx capsule,controlled release spironolactone 25 mg tablet 25 mg PO QAM #90 tab 04/09/17 12/02/17 Rx venlafaxine ER 150 mg 150 mg PO QAM #90 cap 04/09/17 12/02/17 Rx capsule,extended release 24 hr blood sugar diagnostic strips 1 strip MISCELLANEOUS QID #360 04/16/17 12/02/17 Rx strip magnesium oxide 250 mg tablet See Label Instructions PO BID tab 04/30/17 History nitroglycerin 0.4 mg sublingual 0.4 mg SL Q5M PRN #20 tab 04/30/17 12/02/17 Rx tablet pantoprazole 40 mg tablet,delayed 40 mg PO BID #180 tab 06/14/17 12/02/17 Rx release levothyroxine 150 mcg tablet 150 mcg PO QDAY #90 tab 08/09/17 12/02/17 Rx albuterol sulfate 2.5 mg/3 mL 2.5 mg CONTINUOUS NEBULIZATION 08/12/17 12/02/17 Rx (0.083 %) solution for nebulization Q4-6H PRN #120 vial lancets 1 ea MISCELLANEOUS QID #360 ea 08/12/17 12/02/17 Rx hydrocortisone 2.5 % topical cream 1 applic VA QID PRN #28.35 g 10/04/17 Rx with perineal applicator diclofenac 1 % topical gel 4 g TOPICAL QID #100 g 10/11/17 12/02/17 Rx buprenorphine 10 mcg/hour weekly 1 patch TRANSDERM Q7D #4 ea 10/14/17 12/02/17 Rx transdermal patch furosemide 40 mg tablet 120 mg PO BID #540 tab 10/15/17 12/02/17 Rx potassium chloride ER 20 mEq 60 meq PO BID #540 tab 10/15/17 12/02/17 Rx tablet,extended release(part/cryst) transparent dressings 4" X 5 1/2" 0 patch .ROUTE .MEDSUPPLY 11/07/17 12/02/17 History aspirin 325 mg tablet 325 mg PO QDAY tab 11/13/17 12/02/17 History blood-glucose meter 1 ea MISCELLANEOUS QID #1 ea 11/13/17 12/02/17 History insulin glargine (U-100) 100 70 unit SUBCUT QHS vial 11/13/17 12/02/17 History unit/mL subcutaneous solution isosorbide mononitrate ER 30 mg 30 mg PO QDAY tab 11/13/17 12/02/17 History tablet,extended release 24 hr metoprolol succinate ER 25 mg 25 mg PO QDAY #90 tab 11/13/17 12/02/17 Rx tablet,extended release 24 hr tamoxifen 20 mg tablet 20 mg PO QDAY tab 11/13/17 12/02/17 History Levofloxacin Tab [Levaquin Tab] 750 mg PO Q48H #2 tab 12/10/17 Rx Vancomycin 1.5 g IV daily for 7 days Condition at discharge was stable for discharge Follow-up with PCP and infectious disease and ENT as scheduled Exam - Vitals Vital Signs: Vital Signs Temperature 97.2 F Temperature Source Temporal Artery Scan Pulse Rate [Apical] 88 Pulse Rate [Telemetry] 75 Pulse Rate [Pulse Oximeter] 98 Pulse Rate 71 Respiratory Rate 20 Blood Pressure [Right Radial 115/62 Artery] Blood Pressure [Right Arm] 165/90 Blood Pressure [Left Arm] 126/67 Pulse Ox 92 Oxygen Flow Rate 3 Oxygen Delivery Method Room Air Height 5 ft 1 in Weight 241 lb 2 oz - General General Appearance: No Acute Distress, Cooperative, Obese - Head Additional Head Exam Details: Fascial Desquamation noted on the right side of the face mostly upper addition also noted in the right ear. - Eye Eye Exam: POSITIVE: Normal Appearance - ENT ENT Exam: POSITIVE: Normal Exam - Neck Neck Exam: Normal Inspection - Respiratory Respiratory Exam: POSITIVE: Clear to Auscultation - Bilaterally - Cardiovascular Cardiovascular Exam: POSITIVE: RRR - GI/Abdominal GI/Abdominal Exam: POSITIVE: Normal Bowel Sounds, Non Tender, Non Distended, Soft, No Organomegaly - Rectal Rectal Exam: POSITIVE: Deferred - External Exam: POSITIVE: Deferred - Extremities Extremities Exam: POSITIVE: Normal Inspection Additional Extremities Exam Details: Chronic dermatitic changes noted. - Back Back Exam: POSITIVE: Normal Inspection - Neurological Neurological Exam: POSITIVE: Alert, Oriented x 3, CN II-XII Intact, No Facial Droop, Speech Intact / Clear, Moves All Extremities Equally - Psychiatric Psychiatric Exam: POSITIVE: Normal Affect Patient Problems - Patient Problem List (1) Orbital cellulitis on right Status: Acute Code(s): H05.011 - Cellulitis of right orbit Category: Medical (2) Crohn disease Status: Chronic Comment: Same medication Code(s): K50.90 - Crohn's disease, unspecified, without complications Qualifiers: Gastrointestinal tract location: unspecified location Digestive disease complication type: without complication Qualified Code(s): K50.90 - Crohn's disease, unspecified, without complications Category: Medical (3) Benign essential hypertension Status: Chronic Onset Date: 07/05/11 Code(s): I10 - Essential (primary) hypertension Category: Medical (4) Type 2 diabetes mellitus without complication Status: Acute Onset Date: 07/02/16 Code(s): E11.9 - Type 2 diabetes mellitus without complications Qualifiers: Diabetes mellitus roasterman insulin use: with roasterman use Qualified Code( s): E11.9 - Type 2 diabetes mellitus without complications; 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 transplanted heart: [place] heart Associated angina: without angina Qualified Code(s): I25.10 - Atherosclerotic heart disease of [place] coronary artery without angina pectoris Category: Medical
[2017-12-10] MEDS: VENLAFAXINE XR 75 MG CAP PO SCH (08:32)
[2017-12-10] MEDS: Spironolactone Tab 25 MG TAB PO SCH (08:33)
[2017-12-10] MEDS: GABAPENTIN 300 MG CAPSULE PO SCH (08:33)
[2017-12-10] MEDS: ISOSORBIDE MONONITRATE 30 MG SR 24H TABLET PO SCH (08:33)
[2017-12-10] MEDS: METOPROLOL SUCCINATE 25 MG SR 24H TABLET PO SCH (08:33)
[2017-12-10] MEDS: MESALAMINE 500 MG CAPSULE PO SCH (08:33)
[2017-12-10] MEDS: HYDROCORTISONE 1% CREAM - 28.35 GM TOPICAL SCH (08:34)
[2017-12-10] MEDS: GUAIFENESIN 600 MG TABLET PO SCH (08:34)
== END 2017-12-10 10:13 | disposition home or self-care (01) | DRG 121 ==
LOC: MED/SURG 13:18
PROVIDERS: ADMIT Family Medicine; ATTEND Family Medicine

== ENCOUNTER 2018-02-01 06:35 | Inpatient (IN) ==
[2018-02-01] MEDS ORDERED: ONDANSETRON 4 MG/2 ML VIAL IVP ONE ×2 (06:46→06:52)
[2018-02-01] MEDS ORDERED: ONDANSETRON 4 MG/2 ML VIAL ONE (06:51)
[2018-02-01] MEDS ORDERED: PANTOPRAZOLE IV 40 MG VIAL IVP ONE (06:52)
[2018-02-01] MEDS ORDERED: Sodium Chloride 0.9% 1,000 ML PRIMARY IV ONE ×2 (06:52→12:55)
[2018-02-01] MEDS ORDERED: MORPHINE SULFATE 2 MG/1 ML IVP ONE (06:52)
--- NOTE | 2018-02-01 06:58 | EKG ---
Measurements Intervals [place] Rate: 80 P: 34 FL: 145 QRS: 46 QRSD: 93 T: 29 QT: 434 QTc: 470 Interpretive Statements SINUS RHYTHM POSSIBLE LEFT ATRIAL ENLARGEMENT Compared to ECG 12/05/2017 14:32:28 Poor R-wave progression no longer present Myocardial infarct finding no longer present Electronically Signed On 02-02-18 16:42:21 MDT by Chon Pina [email or web address]
[2018-02-01 07:02] LABS: Hematocrit [HCT] 41.8 % (37.0-47.0); Hemoglobin [HGB] 13.4 g/dL (12.0-16.0); MEAN CORPUSCULAR HEMOGLOBIN 28.8 PG (27-31); MEAN CORPUSCULAR HGB CONC 32.1 g/dL (33-37); MEAN CORPUSCULAR VOLUME 89.9 FL (81-99); MEAN PLATELET VOLUME 11.7 FL (7.4-12.2); RED BLOOD COUNT 4.65 10^6/uL (4.20-5.40)
[2018-02-01 07:11] LABS: BLOOD UREA NITROGEN 15 mg/dL (7-22); BUN/CREATININE RATIO 21.42 (6-20); LIPASE 24 IU/L (23-300); SERUM ALBUMIN 4.2 g/dL (3.5-4.8)
--- NOTE | 2018-02-01 07:25 | PDOC ---
General Adult HPI - General Chief Complaint: General Medical Stated Complaint: STOMACH/BACK PAIN, VOMITING X4 YESTERDAY Date Seen by Provider: 02/01/18 Time Seen by Provider: 06:50 Source: POSITIVE: Patient Exam Limitations: POSITIVE: No limitations Nurse's Notes Reviewed & Considered: Yes - History of Present Illness Initial Comment: The patient is a 71-year-old female who presents to the emergency department with vomiting and abdominal pain. She states that she had onset of generalized abdominal pain several days ago. This pain has progressively worsened. She started vomiting last night about 9 PM and has continued vomiting throughout the night. She denies any recent change in bowel movements or diarrhea. She denies urinary symptoms. She does have some intermittent pain in her left upper chest. She has had previous cholecystectomy. Have you received a tetanus shot in the past 10 years?: Unknown - Patient Home Medications Home Medications: Home Medications Acetaminophen [Tylenol] 1,000 mg PO PRN PRN 11/14/11 Ipratropium [place] [Atrovent] 2 spr INASL 3-4XD PRN #1 bottle 06/29/13 Guaifenesin [Mucinex] 600 mg PO BID 10/07/16 Syringe-Needle,Insulin,0.5 ml [Monoject Insulin Syringe] 1 ea MC QID #150 unit 11/30/16 insulin lispro (U-100) 100 unit/mL subcutaneous solution 0 - 12 unit SUBCUT AC HS #3 vial 03/11/17 losartan 100 mg tablet 100 mg PO QDAY #90 tab 04/05/17 mesalamine CR 500 mg capsule,controlled release 500 mg PO BID #180 cap 04/05/17 spironolactone 25 mg tablet 25 mg PO QAM #90 tab 04/09/17 venlafaxine ER 150 mg capsule,extended release 24 hr 150 mg PO QAM #90 cap 04/09 blood sugar diagnostic strips 1 strip MISCELLANEOUS QID #360 strip 04/16/17 magnesium oxide 250 mg tablet See Label Instructions PO BID tab 04/30/17 nitroglycerin 0.4 mg sublingual tablet 0.4 mg SL Q5M PRN #20 tab 04/30/17 pantoprazole 40 mg tablet,delayed release 40 mg PO BID #180 tab 06/14/17 levothyroxine 150 mcg tablet 150 mcg PO QDAY #90 tab 08/09/17 albuterol sulfate 2.5 mg/3 mL (0.083 %) solution for nebulization 2.5 mg CONTINUOUS NEBULIZATION Q4-6H PRN #120 vial 08/12/17 lancets 1 ea MISCELLANEOUS QID #360 ea 08/12/17 diclofenac 1 % topical gel 4 g TOPICAL QID #100 g 10/11/17 furosemide 40 mg tablet 120 mg PO BID #540 tab 10/15/17 potassium chloride ER 20 mEq tablet,extended release(part/cryst) 60 meq PO BID # 540 tab 10/15/17 aspirin 325 mg tablet 325 mg PO QDAY tab 11/13/17 blood-glucose meter 1 ea MISCELLANEOUS QID #1 ea 11/13/17 insulin glargine (U-100) 100 unit/mL subcutaneous solution 70 unit SUBCUT QHS vial 11/13/17 isosorbide mononitrate ER 30 mg tablet,extended release 24 hr 30 mg PO QDAY tab 11/13/17 metoprolol succinate ER 25 mg tablet,extended release 24 hr 25 mg PO QDAY #90 tab 11/13/17 tamoxifen 20 mg tablet 20 mg PO QDAY tab 11/13/17 gabapentin 300 mg capsule 300 mg PO DIRECTED #450 tab 12/30/17 insulin syringe-needle U-100 0.5 mL 31 gauge x 5/16" 0.5 ml MISCELLANEOUS 5XD PRN #450 ea 01/30/18 Atorvastatin Calcium 80 mg PO QHS 02/01/18 Cyanocobalamin (Vitamin B-12) [B-12] 1,000 mcg PO DAILY 02/01/18 Escitalopram Oxalate 10 mg PO DAILY 02/01/18 Folic Acid 400 mcg PO DAILY 02/01/18 Samantha Root 550 mg PO DAILY 02/01/18 Lutein 6 mg PO DAILY 02/01/18 Turmeric Root Extract [Turmeric] 500 mg PO DAILY 02/01/18 - Patient Allergies Allergies/Adverse Reactions: Allergies 3 Allergy/AdvReac Type Severity Reaction Status Date / Time Penicillins Allergy Severe Anaphylaxis Verified 02/01/18 06:55 procaine HCl [From Novocain] Allergy Severe Anaphylaxis Verified 02/01/18 06:55 menthol Allergy Intermediate RASH Verified 02/01/18 06:55 ibuprofen Allergy Mild RASH Verified 02/01/18 06:55 cefuroxime axetil AdvReac Mild causes Verified 02/01/18 06:55 [From Ceftin] redness and blistering feeling in hands steri strips Allergy Mild RASH Uncoded 02/01/18 06:55 benzoine AdvReac Intermediate RASH Uncoded 02/01/18 06:55 Past Medical History - heen HEENT History: Macular Degeneration, Cataracts, Hard of Hearing, Dentures/ Partials Additional HEENT History: deaf in R ear, 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 chronic LE swelling. dr rivera states "scarring on the heart, possibly have had a heart attack" Respiratory History: Asthma, Shortness of Breath, Sleep Apnea, Home CPAP Use, Other (please comment) Additional Respiratory History: 2 liters at night when needed Gastrointestinal History: GERD, Crohn's, Other (please comment) Additional Gastrointestinal History: umbilical hernia Genitourinary History: Incontinence, Other (please comment) Additional Genitourinary History: TWISTED RIGHT KIDNEY Endocrine History: Type 2 Diabetes (insulin), Hypothyroidism Musculoskeletal History: Other (please comment) Prosthesis or Implant: No Additional Musculoskeletal History: SHOULDER PAIN Neurological History: Migraines, Other (please comment) Additional Neurological History: DIABETIC NEUROPATHY. vertigo Blood Disorders: Denies History Psychiatric History: Depression, Anxiety Disorders History of Sexually Transmitted Diseases: No Female Reproductive History: Other (please comment) Additional Female Reproductive History: TUBAL PREGNANCIES X2 Cancer History: Breast Cancer Treatment / Date(s) of Treatment: chemo and radiation 2015 In Past Year Been Physically Harmed or Verbally Threatened: No (PER PATIENT) History of MDRO: No History of Other Communicable Diseases: No Tobacco Use: Never Smoker Alcohol Use: None In the Past 12 Months, Have Used or Abuse Any Substance: None Previous Surgical History: Yes Type / Date of Surgery: RIGHT CATARACT EXT/R KNEE SCOPE 10/10// T&A/ DAR/ RIGHT MASTECTOMY X2/ TUBAL X 2/ MASTOIDECTOMY AND PAROTID TUMOR RIGHT X 2/ SENTINEL NODE BX/ MEDIPORT/COLONOSCOPY/EGD Anesthesia Reactions: No Malignant Hyperthermia: No Family History of Malignant Hyperthermia: No Significant Family History: Heart disease, Cancer, Diabetes, Hypertension, Vascular disease Past Medical History Reviewed: Reviewed - No Changes ROS - Limitations ROS Limitations: No Limitations Constitution: DENIES: Chills, Fever Cardiovascular: REPORTS: Chest Pain. DENIES: Heart Palpitations Respiratory: REPORTS: Denies Resp Symptoms Neurological: REPORTS: Denies Neuro Symptoms Gastrointestinal: REPORTS: Abdominal Pain, Nausea, Vomitting. DENIES: Diarrhea , Black Stools, Bloody Stools Musculoskeletal: REPORTS: Denies MS Symptoms Genitourinary: DENIES: Dysuria, Difficulty Urinating Eyes: REPORTS: Denies Symptoms ENT: REPORTS: Denies Symptoms Skin: DENIES: Rash General Adult Exam - General Appearance General Appearance: POSITIVE: Alert, Cooperative, No Acute Distress - HEENT HEENT: POSITIVE: Head Inspection Nml, Eyes Inspection Nml, Ears Inspection Nml, Dry Mucous Membranes - Neck Neck: POSITIVE: Normal Inspection. NEGATIVE: Lymphadenopathy - Respiratory Respiratory: POSITIVE: No Respiratory Distress, Breath Sounds Normal - Cardiovascular Cardiovascular: POSITIVE: Regular Rate & Rhythm, No Murmur Peripheral Pulses: Dorsalis-pedis (R): 2+, Dorsalis-pedis (L): 2+ - Abdomen Abdomen: Soft: (All Quadrants) Additional Abdominal Details: The patient has diffuse abdominal tenderness without guarding or rebound tenderness - Back Back: NEGATIVE: CVA Tenderness - Skin Skin: POSITIVE: Normal Color, No Rash - Extremities Extremity: Normal ROM: (All Extremities), Normal Inspection: (All Extremities) - Neurological / Psychological Neurological: POSITIVE: Oriented X3, Motor Normal, Sensation Normal General Adult Progress - Results Reviewed by me Xrays/CTs/US Reviewed by me: Yes Discussed with Radiologist: Yes Radiology Findings: CT scan of the abdomen and pelvis showed dilated loops of small bowel, she does have a ventral hernia with associated fat incarcerated in associated inflammatory change, there is no discrete area of obstruction, she does have a small amount of increased ascites and evidence of cirrhosis on liver per radiologist. Lab Results:: Laboratory Results 3 02/01/18 02/01/18 02/01/18 06:25 06:25 06:52 WBC 8.95 RBC 4.65 Hgb 13.4 Hct 41.8 MCV 89.9 MCH 28.8 MCHC 32.1 L RDW Std Deviation 55.4 H RDW Coeff of Georgina 17.3 H Plt Count 205 MPV 11.7 Neutrophils % (Manual) 71 Band Neutrophils % 4 Lymphocytes % (Manual) 15 Monocytes % (Manual) 10 Eosinophils % (Manual) 0 Basophils % (Manual) 0 Metamyelocytes % 0 Myelocytes % 0 Promyelocytes % 0 Blast Cells 0 WBC Morphology Comment Normal morphology Plt Morphology Comment Normal morphology RBC Morph Comment Normal morphology Sodium 141 Potassium 4.3 Chloride 102 Carbon Dioxide 28 Anion Gap 11 BUN 15 Creatinine 0.7 BUN/Creatinine Ratio 21.42 H Glucose 211 H Calculated Osmolality 298.0 H Calcium 9.5 Magnesium 1.7 Total Bilirubin 0.9 AST 51 H ALT 39 Alkaline Phosphatase 77 C-Reactive Protein 1.9 H Total Protein 8.2 H Albumin 4.2 Globulin 4.0 Albumin/Globulin Ratio 1.00 L Amylase 42 Lipase 24 Ur Collection Type Cath specimen Urine Color Yellow Urine Clarity Clear Urine pH 5.0 Ur Specific [place]is 1.010 Urine Protein Negative Urine Glucose (UA) Negative Urine Ketones Negative Urine Occult Blood Negative Urine Nitrate Negative Urine Bilirubin Negative Urine Urobilinogen 1.0 Ur Leukocyte Esterase Negative Ur Culture Indicated? Culture not set CBC and BMP: 02/01/18 06:25 02/01/18 06:25 - Patient's Progress MDM / ED Course: An IV was established and the patient received a 1 L bolus of normal saline as well as Zofran 4 mg IV, morphine 2 mg IV and Protonix 40 mg IV. She was feeling better after administration of fluids and medication however she still has diffuse abdominal tenderness. The umbilical hernia is fairly soft and at least partially reduces without any discomfort. Blood work is essentially unremarkable and catheter UA is negative for infection. CT scan of the abdomen and pelvis shows dilated loops of bowel as well as an incarcerated fat in an umbilical hernia, no focal area of obstruction on CT. Small amount of ascites which is new from previous study. I did contact Dr. Murphy and he evaluated the patient here in the emergency department. He did not think that the patient would require any emergent surgical intervention for her hernia. He recommended continued hydration and reevaluation. I subsequently spoke with Dr. Maria and he is agreed to admit the patient for further treatment. The patient is in agreement with this plan. - Consult Counseled: POSITIVE: Patient, Family, RE: Lab Results, RE: Radiology Results, RE : DX Patient Care Time - Estimated PCT Patient Care Time (In Minutes): 40 Vital Signs - Recent Vital Signs Vital Signs: Vital Signs (Last 8 hours) Temp Pulse Pulse Resp BP Pulse Ox 02/01/18 06:53 80 02/01/18 06:32 98.0 F 83 19 86/65 98 - VS Reviewed Vital Signs Reviewed: Yes Discharge Clinical Impression: Dehydration, Vomiting, Umbilical hernia, Ascites Discharge Disposition: Admit to Observation Condition: Fair Follow Up With: MAHAMED CAMP [Primary Care Provider] -
[2018-02-01 07:28] LABS: PLATELET MORPHOLOGY COMMENT NORMAL MORPHOLOGY (NORM); RBC MORPHOLOGY COMMENT NORMAL MORPHOLOGY (NORM); WBC MORPHOLOGY COMMENT NORMAL MORPHOLOGY (NORM)
[2018-02-01 07:29] LABS: BAND NEUTROPHILS % 4 % (0-10); BASOPHILS % (MANUAL) 0 % (0-1); EOSINOPHILS % (MANUAL) 0 % (0-8); METAMYELOCYTES % 0 %; MONOCYTES % (MANUAL) 10 % (0-12); MYELOCYTES % 0 %; NEUTROPHILS % (MANUAL) 71 % (50-80); PROMYELOCYTES % 0 %
--- NOTE | 2018-02-01 09:17 | DI ---
EXAM: CT Abdomen and Pelvis With Intravenous Contrast CLINICAL HISTORY: ITS.REASON Abdominal Pain Physician Notes: Tech Comments: TECHNIQUE: Axial computed tomography images of the abdomen and pelvis with intravenous contrast. COMPARISON: 05/24/2017 FINDINGS: Lung bases: Unremarkable. No mass. No consolidation. ABDOMEN: Liver: Again noted is a cirrhotic configuration to the liver which has a diffusely nodular contour. There is no evidence of a focal liver lesion. There is new perihepatic ascites. Gallbladder and bile ducts: Postcholecystectomy. No ductal dilation. Pancreas: Unremarkable. No mass. No ductal dilation. Spleen: Unremarkable. No splenomegaly. Adrenals: Unremarkable. No mass. Kidneys and ureters: There is no hydronephrosis. There is stable cortical scarring at the lower pole the right kidney. There is an 8 mm cyst in the lower pole of the right kidney. Stomach and bowel: There are mildly dilated loops of proximal small bowel/jejunum. They measure up to 3.3 cm in diameter. It is noted that there appears to be inflammation within the ventral hernia with a small amount of fluid. Although the hernia does not contain a loop of small bowel, the small bowel appears to be pulled closer to the mouth of the hernia as compared to the prior study. There are also mildly thickened loops of ileum in the right lower-quadrant and enteritis. Air and stool seen throughout the colon without evidence of obstruction. There is diffuse diverticulosis, without evidence of diverticulitis. PELVIS: Appendix: Normal appendix. Bladder: Unremarkable. No mass. Reproductive: The uterus is prominent for the patient's age but is unchanged in appearance. This mild enlargement could be due to fibroids or adenomyosis. ABDOMEN and PELVIS: Intraperitoneal space: See above. Bones/joints: No acute fracture. No dislocation. Soft tissues: Again seen is a midline ventral hernia containing fat. However, there appears to be inflammation of the fat within the hernia. There is also a small amount of fluid. Vasculature: There is moderate to severe atherosclerotic calcification of the aorta and its branches, without aneurysm. Lymph nodes: There are small retroperitoneal lymph nodes which are nonspecific in appearance and are without significant change. IMPRESSION: 1. There is no evidence of madie bowel obstruction. However, there is mild dilatation of the proximal small bowel which may be related to incarceration of fat within the ventral hernia. This is suggested by increased infiltration of the fat within the ventral hernia as well as a small amount of fluid. There is also mild wall thickening of a loop of ileum-question enteritis. There is a small amount of ascites which is new compared to the previous study. 2. Stable cirrhosis.
[2018-02-01 09:18] LABS: CLARITY,URINE CLEAR (CLEAR); COLOR,URINE YELLOW (Y); URINE SAMPLE TYPE CATH SPECIMEN
[2018-02-01 09:19] LABS: BILIRUBIN,URINE NEGATIVE (NEG); GLUCOSE, URINE (UA) NEGATIVE (NEG); OCCULT BLOOD,URINE NEGATIVE (NEG); PROTEIN,URINE NEGATIVE (NEG)
--- NOTE | 2018-02-01 10:04 | CONSULT ---
Consult Note - Consult Consult Date: 02/01/18 Reason for Consult: PreOp Consulation : General Surgery Requesting Physician: Luis M Best M.D. Primary Care Provider: Lonny Gonzalez MD - History of Present Illness History of Present Illness: . 69-year-old female who developed 2 day history of abdominal pain nausea vomiting. She states the pains around her bellybutton but can be all over her abdomen. There is associated nausea. No hematochezia hematemesis or melena. Patient still having daily bowel movements. No no diarrhea or constipation. No fevers or chills Past Medical History Medical History: 1. Diabetes type II on insulin. 2. Obstructive sleep apnea on CPAP at night. 3. COPD. 4. Hyperlipidemia. 5. Hypothyroidism. 6. History of breast cancer status post surgery 2011 and chemotherapy with radiation. 7. Depression. 8. Hypertension. 9. Moderate mitral regurgitation. 10. Abnormal stress test in June 2015, patient opted for medical treatment. 11. Chronic anemia. 12. Crohn's disease Surgical History: 1. History of breast cancer status post surgery. 2. Cholecystectomy. 3. Tonsillectomy. 4. Adenoidectomy. 5. Right-sided mastoid surgery. 6. Inner ear surgery on the right side. 7. Possible parotid gland surgery on the right side Family History: Reviewed an Not Pertinent Pertinent Family History: She states that she is adopted. Past Social History: She used to smoke quit a few years ago, rarely drinks. No drugs. Lives with her . Has 2 children. Tobacco Use: Never Smoker In the Past 12 Months, Have Used or Abuse Any of the Following Substance: None Medication / Allergies Home Medications: Home Medications 3 Medication Instructions Recorded Confirmed Type Acetaminophen [Tylenol] 1,000 mg PO PRN PRN 11/14/11 02/01/18 History Ipratropium [place] [Atrovent] 2 spr INASL 3-4XD PRN #1 bottle 06/29/13 History Guaifenesin [Mucinex] 600 mg PO BID 10/07/16 02/01/18 History Syringe-Needle,Insulin,0.5 ml 1 ea MC QID #150 unit 11/30/16 02/01/18 Rx [Monoject Insulin Syringe] insulin lispro (U-100) 100 unit/mL 0 - 12 unit SUBCUT AC HS #3 vial 03/11/17 Rx subcutaneous solution losartan 100 mg tablet 100 mg PO QDAY #90 tab 04/05/17 02/01/18 Rx mesalamine CR 500 mg 500 mg PO BID #180 cap 04/05/17 02/01/18 Rx capsule,controlled release spironolactone 25 mg tablet 25 mg PO QAM #90 tab 04/09/17 02/01/18 Rx venlafaxine ER 150 mg 150 mg PO QAM #90 cap 04/09/17 02/01/18 Rx capsule,extended release 24 hr blood sugar diagnostic strips 1 strip MISCELLANEOUS QID #360 04/16/17 02/01/18 Rx strip magnesium oxide 250 mg tablet See Label Instructions PO BID tab 04/30/17 History nitroglycerin 0.4 mg sublingual 0.4 mg SL Q5M PRN #20 tab 04/30/17 02/01/18 Rx tablet pantoprazole 40 mg tablet,delayed 40 mg PO BID #180 tab 06/14/17 02/01/18 Rx release levothyroxine 150 mcg tablet 150 mcg PO QDAY #90 tab 08/09/17 02/01/18 Rx albuterol sulfate 2.5 mg/3 mL 2.5 mg CONTINUOUS NEBULIZATION 08/12/17 02/01/18 Rx (0.083 %) solution for nebulization Q4-6H PRN #120 vial lancets 1 ea MISCELLANEOUS QID #360 ea 08/12/17 02/01/18 Rx diclofenac 1 % topical gel 4 g TOPICAL QID #100 g 10/11/17 02/01/18 Rx furosemide 40 mg tablet 120 mg PO BID #540 tab 10/15/17 02/01/18 Rx potassium chloride ER 20 mEq 60 meq PO BID #540 tab 10/15/17 02/01/18 Rx tablet,extended release(part/cryst) aspirin 325 mg tablet 325 mg PO QDAY tab 11/13/17 02/01/18 History blood-glucose meter 1 ea MISCELLANEOUS QID #1 ea 11/13/17 02/01/18 History insulin glargine (U-100) 100 70 unit SUBCUT QHS vial 11/13/17 02/01/18 History unit/mL subcutaneous solution isosorbide mononitrate ER 30 mg 30 mg PO QDAY tab 11/13/17 02/01/18 History tablet,extended release 24 hr metoprolol succinate ER 25 mg 25 mg PO QDAY #90 tab 11/13/17 02/01/18 Rx tablet,extended release 24 hr tamoxifen 20 mg tablet 20 mg PO QDAY tab 11/13/17 02/01/18 History gabapentin 300 mg capsule 300 mg PO DIRECTED #450 tab 12/30/17 02/01/18 Rx insulin syringe-needle U-100 0.5 0.5 ml MISCELLANEOUS 5XD PRN #450 01/30/18 Rx mL 31 gauge x 09/04" ea Atorvastatin Calcium 80 mg PO QHS 02/01/18 02/01/18 History Cyanocobalamin (Vitamin B-12) 1,000 mcg PO DAILY 02/01/18 02/01/18 History [B-12] Escitalopram Oxalate 10 mg PO DAILY 02/01/18 02/01/18 History Folic Acid 400 mcg PO DAILY 02/01/18 02/01/18 History Samantha Root 550 mg PO DAILY 02/01/18 02/01/18 History Lutein 6 mg PO DAILY 02/01/18 02/01/18 History Turmeric Root Extract [Turmeric] 500 mg PO DAILY 02/01/18 02/01/18 History Allergies/Adverse Reactions: Allergies 3 Allergy/AdvReac Type Severity Reaction Status Date / Time Penicillins Allergy Severe Anaphylaxis Verified 02/01/18 06:55 procaine HCl [From Novocain] Allergy Severe Anaphylaxis Verified 02/01/18 06:55 menthol Allergy Intermediate RASH Verified 02/01/18 06:55 ibuprofen Allergy Mild RASH Verified 02/01/18 06:55 cefuroxime axetil AdvReac Mild causes Verified 02/01/18 06:55 [From Ceftin] redness and blistering feeling in hands steri strips Allergy Mild RASH Uncoded 02/01/18 06:55 benzoine AdvReac Intermediate RASH Uncoded 02/01/18 06:55 Results - Labs CBC and BMP: 02/01/18 06:25 02/01/18 06:25 Exam - Vitals Vital Signs: Vital Signs Temperature 98.0 F Temperature Source Temporal Artery Scan Pulse Rate [Pulse Oximeter] 83 Pulse Rate 80 Respiratory Rate 19 Blood Pressure [Left Radial 86/65 Artery] Pulse Ox 98 Oxygen Flow Rate 2 Oxygen Delivery Method Nasal Cannula Height 5 ft 1 in Weight 250 lb - General General Appearance: No Acute Distress, Cooperative - GI/Abdominal Additional GI/Abdominal Exam Details: Patient has a morbid obesity. She her abdomen was protuberant but not distended. She has a chronically incarcerated hernia that L [place] 90% reduced. It feels like omentum in the hernia defect and I do not feel any loops of bowel. On CT scan it's just fatty tissue that is in the hernia. I think the findings are consistent with a chronically incarcerated hernia. There is no loops of bowel in the hernia at this time. Her abdomen is mildly diffusely tender but there is no rebound no rigidity no guarding. Assessment and Plan - Patient Problems (1) Ascites Current Visit: Yes Status: Acute Code(s): R18.8 - Other ascites (2) Dehydration Current Visit: Yes Status: Acute Code(s): E86.0 - Dehydration (3) Umbilical hernia Current Visit: Yes Status: Chronic Onset Date: 10/30/11 Code(s): K42.9 - Umbilical hernia without obstruction or gangrene (4) Abdominal pain Current Visit: No Status: Acute Onset Date: 03/04/12 Code(s): R10.9 - Unspecified abdominal pain - Assessment / Plan Additional Assessment/Plan Details: At this point the patient's hernia is reduced is no bowel in it. I cannot say whether or not the patient had a loop of bowel and prior to Dr. Best during his exam again the CT scan but it is reduced at this point. Therefore she does not need to have surgery at the umbilical hernia at this time. Patient is a high surgical risk patient. And at her size should be at high risk for recurrence of the hernia. Therefore this time I would not recommend that we get it fixed. I do not think there is anything else surgically going on with the patient.
[2018-02-01] MEDS ORDERED: Glucagon Inj Vial 1 MG/ML VIAL IM PRN (10:34)
[2018-02-01] MEDS ORDERED: NITROGLYCERIN 0.4 MG SL TAB (BOTTLE OF 3) SL PRN (10:34)
[2018-02-01] MEDS ORDERED: DEXTROSE 50%-WATER SYRINGE 50 ML SYRINGE IVP PRN (10:34)
[2018-02-01] MEDS ORDERED: LIDOCAINE W/ SODIUM BICARB 0.5 ML SYR SUBD PRN (10:34)
[2018-02-01] MEDS ORDERED: Insulin Sliding Scale Protocol SUBCUT PRN (10:34)
[2018-02-01] MEDS ORDERED: DEXTROSE 31 GM GEL PO PRN (10:34)
[2018-02-01] MEDS: Sodium Chloride 0.9% 1,000 ML PRIMARY IV SCH ×2 (12:02→22:59)
[2018-02-01] MEDS: NYSTATIN 15 GM POWDER TOPICAL SCH ×3 (12:02→20:17)
[2018-02-01] MEDS: LOSARTAN 50 MG TABLET PO SCH (12:02)
[2018-02-01] MEDS: GABAPENTIN 300 MG CAPSULE PO SCH ×3 (12:03→20:16)
[2018-02-01] MEDS: ASPIRIN 325 MG TABLET PO SCH (12:03)
[2018-02-01] MEDS: FUROSEMIDE 40 MG TABLET PO SCH (12:03)
[2018-02-01] MEDS: Spironolactone Tab 25 MG TAB PO SCH (12:03)
[2018-02-01] MEDS: ISOSORBIDE MONONITRATE 30 MG SR 24H TABLET PO SCH (12:03)
[2018-02-01] MEDS: VENLAFAXINE XR 75 MG CAP PO SCH (12:03)
[2018-02-01] MEDS: TAMOXIFEN CITRATE 20 MG PO SCH (12:18)
[2018-02-01] MEDS: Insulin Lispro Flexpen 300 UNIT/3 ML INSULN.PEN SUBCUT SCH ×3 (12:18→20:19)
[2018-02-01] MEDS: ONDANSETRON 4 MG/2 ML VIAL IVP PRN (13:04)
[2018-02-01] MEDS: HYDROmorphone 2 MG/1 ML IVP PRN ×2 (13:14→16:34)
[2018-02-01] MEDS: DICLOFENAC SODIUM TOPICAL SCH ×3 (14:11→20:19)
--- NOTE | 2018-02-01 14:50 | PDOC ---
HPI - History of Present Illness Date of Service: 02/01/18 Time of Service: 12:45 Chief Complaint: Abdominal pain with nausea and vomiting. History of Present Illness: This is a 72 year old female that presents with onset of abdominal pain, diffuse , since last Saturday, and it has been getting progressively worse. Last night, the patient developed nausea and vomiting, no fevers, no chills, and no diarrhea. The patient reports to me that medications in the emergency room did not help with pain. She's tried some water, but it still is causing nausea. Ice chips and tolerated. She had a CT scan done in the emergency room, and it showed an incarcerated hernia that is chronic, although it was reported at the small bowel looked closer in location to it. I spoke with the surgeon, and he was able to reduce the hernia in the emergency room. There are dilated small bowel somewhat we do not know is whether or not the patient could've had a small bowel obstruction that could be relieved prior to the CT scan due to adhesions. The patient has not had anything like that happen before. Nothing to this point is made her feel better. She has bowel tones on exam and has had bowel movements in the last 24 hours. The last time she ate was yesterday and she had a bowl of oatmeal. Past Medical History Medical History: 1. Diabetes type II on insulin. 2. Obstructive sleep apnea on CPAP at night. 3. COPD. 4. Hyperlipidemia. 5. Hypothyroidism. 6. History of breast cancer status post surgery 2011 and chemotherapy with radiation. 7. Depression. 8. Hypertension. 9. Moderate mitral regurgitation. 10. Abnormal stress test in June 2015, patient opted for medical treatment. 11. Chronic anemia. 12. Crohn's disease. 13. recent facial cellulitis, resolved Surgical History: 1. History of breast cancer status post surgery. 2. Cholecystectomy. 3. Tonsillectomy. 4. Adenoidectomy. 5. Right-sided mastoid surgery. 6. Inner ear surgery on the right side. 7. Possible parotid gland surgery on the right side. 8. Hx of prior tubal X 2 on right side. Family History: Reviewed an Not Pertinent Pertinent Family History: She states that she is adopted. Past Social History: She used to smoke quit a few years ago, rarely drinks. No drugs. Lives with her . Has 2 children. Tobacco Use: Never Smoker In the Past 12 Months, Have Used or Abuse Any of the Following Substance: None Alcohol Use: None Medication / Allergies Home Medications: Home Medications 3 Medication Instructions Recorded Confirmed Type Acetaminophen [Tylenol] 1,000 mg PO PRN PRN 11/14/11 02/01/18 History Ipratropium [place] [Atrovent] 2 spr INASL 3-4XD PRN #1 bottle 06/29/13 History Guaifenesin [Mucinex] 600 mg PO BID 10/07/16 02/01/18 History Syringe-Needle,Insulin,0.5 ml 1 ea MC QID #150 unit 11/30/16 02/01/18 Rx [Monoject Insulin Syringe] insulin lispro (U-100) 100 unit/mL 0 - 12 unit SUBCUT AC HS #3 vial 03/11/17 Rx subcutaneous solution losartan 100 mg tablet 100 mg PO QDAY #90 tab 04/05/17 02/01/18 Rx mesalamine CR 500 mg 500 mg PO BID #180 cap 04/05/17 02/01/18 Rx capsule,controlled release spironolactone 25 mg tablet 25 mg PO QAM #90 tab 04/09/17 02/01/18 Rx venlafaxine ER 150 mg 150 mg PO QAM #90 cap 04/09/17 02/01/18 Rx capsule,extended release 24 hr blood sugar diagnostic strips 1 strip MISCELLANEOUS QID #360 04/16/17 02/01/18 Rx strip magnesium oxide 250 mg tablet See Label Instructions PO BID tab 04/30/17 History nitroglycerin 0.4 mg sublingual 0.4 mg SL Q5M PRN #20 tab 04/30/17 02/01/18 Rx tablet pantoprazole 40 mg tablet,delayed 40 mg PO BID #180 tab 06/14/17 02/01/18 Rx release levothyroxine 150 mcg tablet 150 mcg PO QDAY #90 tab 08/09/17 02/01/18 Rx albuterol sulfate 2.5 mg/3 mL 2.5 mg CONTINUOUS NEBULIZATION 08/12/17 02/01/18 Rx (0.083 %) solution for nebulization Q4-6H PRN #120 vial lancets 1 ea MISCELLANEOUS QID #360 ea 08/12/17 02/01/18 Rx diclofenac 1 % topical gel 4 g TOPICAL QID #100 g 10/11/17 02/01/18 Rx furosemide 40 mg tablet 120 mg PO BID #540 tab 10/15/17 02/01/18 Rx potassium chloride ER 20 mEq 60 meq PO BID #540 tab 10/15/17 02/01/18 Rx tablet,extended release(part/cryst) aspirin 325 mg tablet 325 mg PO QDAY tab 11/13/17 02/01/18 History blood-glucose meter 1 ea MISCELLANEOUS QID #1 ea 11/13/17 02/01/18 History insulin glargine (U-100) 100 70 unit SUBCUT QHS vial 11/13/17 02/01/18 History unit/mL subcutaneous solution isosorbide mononitrate ER 30 mg 30 mg PO QDAY tab 11/13/17 02/01/18 History tablet,extended release 24 hr metoprolol succinate ER 25 mg 25 mg PO QDAY #90 tab 11/13/17 02/01/18 Rx tablet,extended release 24 hr tamoxifen 20 mg tablet 20 mg PO QDAY tab 11/13/17 02/01/18 History gabapentin 300 mg capsule 300 mg PO DIRECTED #450 tab 12/30/17 02/01/18 Rx insulin syringe-needle U-100 0.5 0.5 ml MISCELLANEOUS 5XD PRN #450 01/30/18 Rx mL 31 gauge x 5/16" ea Atorvastatin Calcium 80 mg PO QHS 02/01/18 02/01/18 History Cyanocobalamin (Vitamin B-12) 1,000 mcg PO DAILY 02/01/18 02/01/18 History [B-12] Escitalopram Oxalate 10 mg PO DAILY 02/01/18 02/01/18 History Folic Acid 400 mcg PO DAILY 02/01/18 02/01/18 History Samantha Root 550 mg PO DAILY 02/01/18 02/01/18 History Lutein 6 mg PO DAILY 02/01/18 02/01/18 History Turmeric Root Extract [Turmeric] 500 mg PO DAILY 02/01/18 02/01/18 History Allergies/Adverse Reactions: Allergies 3 Allergy/AdvReac Type Severity Reaction Status Date / Time Penicillins Allergy Severe Anaphylaxis Verified 02/01/18 11:42 procaine HCl [From Novocain] Allergy Severe Anaphylaxis Verified 02/01/18 11:42 menthol Allergy Intermediate RASH Verified 02/01/18 11:42 ibuprofen Allergy Mild RASH Verified 02/01/18 11:42 cefuroxime axetil AdvReac Mild causes Verified 02/01/18 11:42 [From Ceftin] redness and blistering feeling in hands steri strips Allergy Mild RASH Uncoded 02/01/18 06:55 benzoine AdvReac Intermediate RASH Uncoded 02/01/18 06:55 Review of Systems - Review of Systems All Systems: Reviewed & No Additional Complaints Except as Stated - Constitutional Constitutional: REPORTS: Other (no fevers, no chills.) - Gastrointestinal Gastrointestinal / Abdominal: REPORTS: Nausea, Vomiting, Abdominal Pain, See HPI - Musculoskeletal Musculoskeletal: REPORTS: Other (chronic swelling in legs with some erythema which she states is chronic with venous stasis) - Neurological Neurologic: REPORTS: Negative System Review Exam - Vitals Vital Signs: Vital Signs Temperature 98.0 F Temperature Source Temporal Artery Scan Pulse Rate [Pulse Oximeter] 96 Pulse Rate 88 Respiratory Rate 20 Blood Pressure [Left Radial 144/70 Artery] Blood Pressure 119/56 Pulse Ox 97 Oxygen Flow Rate 1 Oxygen Delivery Method Nasal Cannula Height 5 ft 1 in Weight 240 lb 14.4 oz - General General Appearance: No Acute Distress, Cooperative - Head Head Exam: Normal Inspection, Normocephalic, Atraumatic - Eye Eye Exam: POSITIVE: No Scleral Icterus - ENT ENT Exam: POSITIVE: Mucous Membranes Moist - Neck Neck Exam: Normal Inspection, No Tenderness, No Lymphadenopathy, No Thyromegaly , JVP is not Raised - Respiratory Respiratory Exam: POSITIVE: Clear to Auscultation - Bilaterally, Breathing Non Labored - Cardiovascular Cardiovascular Exam: POSITIVE: RRR, No Murmur, No Clicks, No Gallops, No Rubs, No JVD - GI/Abdominal GI/Abdominal Exam: POSITIVE: Normal Bowel Sounds, Non Distended, Soft Additional GI/Abdominal Exam Details: tenderness with palpation. - Rectal Rectal Exam: POSITIVE: Deferred - External Exam: POSITIVE: Deferred Exam: POSITIVE: Deferred - Extremities Extremities Exam: POSITIVE: No Clubbing Present, No Cyanosis Present, Pedal Edema, +1 Edema - Back Back Exam: POSITIVE: Paraspinal Tenderness (paraspinal tenderness), Vertebral Tenderness (lumbar spine.) - Neurological Neurological Exam: POSITIVE: Alert, Oriented x 3, No Facial Droop, Speech Intact / Clear, Moves All Extremities Equally - Psychiatric Psychiatric Exam: POSITIVE: Normal Affect, Normal Mood - Integumentary Integumentary Exam: POSITIVE: Normal Color, Warm, Dry, Intact Results - Labs CBC and BMP: 02/01/18 06:25 02/01/18 06:25 Additional Lab Results: Laboratory Results 02/01/18 02/01/18 02/01/18 Range/Units 06:25 06:25 06:52 WBC 8.95 (4.8-10.8) 10^3/uL RBC 4.65 (4.20-5.40) 10^6/uL Hgb 13.4 (12.0-16.0) g/dL Hct 41.8 (37.0-47.0) % MCV 89.9 (81-99) FL MCH 28.8 (27-31) PG MCHC 32.1 L (33-37) g/dL RDW Std Deviation 55.4 H (39-50) fL RDW Coeff of [place] 17.3 H (11.5-14.5) % Plt Count 205 (140-350) 10*3/uL MPV 11.7 (7.4-12.2) FL Neutrophils % (Manual) 71 (50-80) % Band Neutrophils % 4 (0-10) % Lymphocytes % (Manual) 15 (10-50) % Monocytes % (Manual) 10 (0-12) % Eosinophils % (Manual) 0 (0-8) % Basophils % (Manual) 0 (0-1) % Metamyelocytes % 0 % Myelocytes % 0 % Promyelocytes % 0 % Blast Cells 0 (0-1) % WBC Morphology Comment Normal morphology (NORM) Plt Morphology Comment Normal morphology (NORM) RBC Morph Comment Normal morphology (NORM) Sodium 141 (135-145) meq/L Potassium 4.3 (3.8-5.2) meq/L Chloride 102 (98-112) meq/L Carbon Dioxide 28 (23-33) meq/L Anion Gap 11 (5-20) BUN 15 (7-22) mg/dL Creatinine 0.7 (0.50-1.20) mg/dL BUN/Creatinine Ratio 21.42 H (6-20) Glucose 211 H (78-110) mg/dL Calculated Osmolality 298.0 H (267-292) mOsm/kg Lactic Acid (0.70-2.10) MMOL/L Calcium 9.5 (8.7-10.7) mg/dL Magnesium 1.7 (1.6-2.4) mg/dL Total Bilirubin 0.9 (0.3-1.2) mg/dL AST 51 H (8-39) IU/L ALT 39 (9-52) IU/L Alkaline Phosphatase 77 (38-126) IU/L C-Reactive Protein 1.9 H (0.0-0.9) mg/dL Total Protein 8.2 H (6.1-8.0) g/dL Albumin 4.2 (3.5-4.8) g/dL Globulin 4.0 (2.50-4.10) g/dL Albumin/Globulin Ratio 1.00 L (1.3-2.0) mg/g Amylase 42 (30-110) U/L Lipase 24 (23-300) IU/L Ur Collection Type Cath specimen Urine Color Yellow (Y) Urine Clarity Clear (CLEAR) Urine pH 5.0 (5.0-8.5) Ur Specific [place] 1.010 (1.005-1.030) Urine Protein Negative (NEG) mg/dl Urine Glucose (UA) Negative (NEG) mg/dL Urine Ketones Negative (NEG) Urine Occult Blood Negative (NEG) Urine Nitrate Negative (NEG) Urine Bilirubin Negative (NEG) Urine Urobilinogen 1.0 (0.2) EU/dL Ur Leukocyte Esterase Negative (NEG) Ur Culture Indicated? Culture not set 02/01/18 Range/Units 10:34 WBC (4.8-10.8) 10^3/uL RBC (4.20-5.40) 10^6/uL Hgb (12.0-16.0) g/dL Hct (37.0-47.0) % MCV (81-99) FL MCH (27-31) PG MCHC (33-37) g/dL RDW Std Deviation (39-50) fL RDW Coeff of Georgina (11.5-14.5) % Plt Count (140-350) 10*3/uL MPV (7.4-12.2) FL Neutrophils % (Manual) (50-80) % Band Neutrophils % (0-10) % Lymphocytes % (Manual) (10-50) % Monocytes % (Manual) (0-12) % Eosinophils % (Manual) (0-8) % Basophils % (Manual) (0-1) % Metamyelocytes % % Myelocytes % % Promyelocytes % % Blast Cells (0-1) % WBC Morphology Comment (NORM) Plt Morphology Comment (NORM) RBC Morph Comment (NORM) Sodium (135-145) meq/L Potassium (3.8-5.2) meq/L Chloride (98-112) meq/L Carbon Dioxide (23-33) meq/L Anion Gap (5-20) BUN (7-22) mg/dL Creatinine (0.50-1.20) mg/dL BUN/Creatinine Ratio (6-20) Glucose (78-110) mg/dL Calculated Osmolality (267-292) mOsm/kg Lactic Acid 2.6 H (0.70-2.10) MMOL/L Calcium (8.7-10.7) mg/dL Magnesium (1.6-2.4) mg/dL Total Bilirubin (0.3-1.2) mg/dL AST (8-39) IU/L ALT (9-52) IU/L Alkaline Phosphatase (38-126) IU/L C-Reactive Protein (0.0-0.9) mg/dL Total Protein (6.1-8.0) g/dL Albumin (3.5-4.8) g/dL Globulin (2.50-4.10) g/dL Albumin/Globulin Ratio (1.3-2.0) mg/g Amylase (30-110) U/L Lipase (23-300) IU/L Ur Collection Type Urine Color (Y) Urine Clarity (CLEAR) Urine pH (5.0-8.5) Ur Specific [place] (1.005-1.030) Urine Protein (NEG) mg/dl Urine Glucose (UA) (NEG) mg/dL Urine Ketones (NEG) Urine Occult Blood (NEG) Urine Nitrate (NEG) Urine Bilirubin (NEG) Urine Urobilinogen (0.2) EU/dL Ur Leukocyte Esterase (NEG) Ur Culture Indicated? - EKG Data -: EKG Interpreted by Me Rate: Normal EKG Shows Normal: Sinus Rhythm - Imaging Status: Image Reviewed by Me (I looked at the CT scan and there is a hernia, and dilated loops of small bowel. she has some ascites around the liver. I wonder if there was a partial small bowel obstruction--adhesions?) Assessment and Plan - Patient Problems (1) Partial small bowel obstruction Current Visit: Yes Status: Acute Code(s): K56.600 - Partial intestinal obstruction, unspecified as to cause (2) Incarcerated hernia Current Visit: Yes Status: Chronic Comment: chronic Code(s): K46.0 - Unspecified abdominal hernia with obstruction, without gangrene (3) Coronary artery disease Current Visit: Yes Status: Chronic Code(s): I25.10 - Atherosclerotic heart disease of [place] coronary artery without angina pectoris Qualifiers: Coronary Disease-Associated Artery/Lesion type: [place] artery [place] vs. transplanted heart: [place] heart Associated angina: without angina Qualified Code(s): I25.10 - Atherosclerotic heart disease of [place] coronary artery without angina pectoris (4) Type 2 diabetes mellitus without complication Current Visit: Yes Status: Chronic Onset Date: 07/02/16 Code(s): E11.9 - Type 2 diabetes mellitus without complications Qualifiers: Diabetes mellitus custodial insulin use: with custodial use Qualified Code( s): E11.9 - Type 2 diabetes mellitus without complications; Z79.4 - prison ( current) use of insulin (5) Hypothyroidism Current Visit: Yes Status: Chronic Onset Date: 06/01/11 Code(s): E03.9 - Hypothyroidism, unspecified Qualifiers: Hypothyroidism type: acquired Qualified Code(s): E03.9 - Hypothyroidism, unspecified (6) GERD (gastroesophageal reflux disease) Current Visit: Yes Status: Chronic Onset Date: 12/13/10 Code(s): K21.9 - Gastro-esophageal reflux disease without esophagitis Qualifiers: Esophagitis presence: esophagitis presence not specified Qualified Code(s) : K21.9 - Gastro-esophageal reflux disease without esophagitis (7) Chronic combined systolic and diastolic congestive heart failure Current Visit: Yes Status: Chronic Onset Date: 12/13/16 Code(s): I50.42 - Chronic combined systolic (congestive) and diastolic (congestive) heart failure (8) Benign essential hypertension Current Visit: Yes Status: Chronic Onset Date: 07/05/11 Code(s): I10 - Essential (primary) hypertension (9) Crohn disease Current Visit: Yes Status: Chronic Code(s): K50.90 - Crohn's disease, unspecified, without complications Qualifiers: Gastrointestinal tract location: unspecified location Digestive disease complication type: without complication Qualified Code(s): K50.90 - Crohn's disease, unspecified, without complications - Assessment / Plan Additional Assessment/Plan Details: admit the patient. This will be very difficult to determine, based on history, if there is a bowel obstruction from adhesions or from a now reduced chronic incarcerated hernia. ice chips today, fluids check labs in AM continue medications, but use insulin for DMII replace electrolytes as they need it check stools for infection if loose/diarrhea consult surgery hold off on NG tube for now if not better by saturday, consider repeat CT with oral contrast or small bowel follow through. pain medications and anti-emetics. FULL CODE, discussed with patient. patient agrees with proceeding with the plan above.
[2018-02-01] MEDS: PANTOPRAZOLE 40 MG TABLET PO SCH (16:33)
[2018-02-01] MEDS: MESALAMINE 500 MG CAPSULE PO SCH (20:16)
[2018-02-01] MEDS: POTASSIUM CHLORIDE 20 MEQ TAB PO SCH (20:16)
[2018-02-01] MEDS: ATORVASTATIN 40 MG TABLET PO SCH (20:16)
[2018-02-01] MEDS: Insulin Glargine SoloStar Inj 100 UNIT/ML INSULN.PEN SUBCUT SCH (20:17)
[2018-02-02] MEDS: LEVOTHYROXINE 50 MCG TABLET PO SCH (04:31)
[2018-02-02 05:23] LABS: BASOPHILS # (AUTO) 0.02 10*3/UL; BASOPHILS % (AUTO) 0.2 % (0-1); EOSINOPHILS # (AUTO) 0.16 10*3/UL; EOSINOPHILS % (AUTO) 1.9 % (0-8); Hematocrit [HCT] 38.4 % (37.0-47.0); Hemoglobin [HGB] 12.2 g/dL (12.0-16.0); LYMPHOCYTES # (AUTO) 2.97 10*3/uL; MEAN CORPUSCULAR HGB CONC 31.8 g/dL (33-37); MEAN CORPUSCULAR VOLUME 91.2 FL (81-99); MEAN PLATELET VOLUME 12.4 FL (7.4-12.2); MONOCYTES # (AUTO) 0.72 10*3/UL (0.3-0.8); MONOCYTES % (AUTO) 8.4 % (5-15); NEUTROPHILS # (AUTO) 4.66 10*3/UL; NEUTROPHILS % (AUTO) 54.6 % (50-80); RED BLOOD COUNT 4.21 10^6/uL (4.20-5.40)
[2018-02-02 05:41] LABS: PLATELET MORPHOLOGY COMMENT NORMAL MORPHOLOGY (NORM); RBC MORPHOLOGY COMMENT NORMAL MORPHOLOGY (NORM); WBC MORPHOLOGY COMMENT NORMAL MORPHOLOGY (NORM)
[2018-02-02 05:44] LABS: BLOOD UREA NITROGEN 17 mg/dL (7-22); BUN/CREATININE RATIO 28.33 (6-20); SERUM ALBUMIN 3.6 g/dL (3.5-4.8)
[2018-02-02] MEDS: Insulin Lispro Flexpen 300 UNIT/3 ML INSULN.PEN SUBCUT SCH ×4 (07:02→20:35)
[2018-02-02] MEDS: PANTOPRAZOLE 40 MG TABLET PO SCH ×2 (07:34→15:30)
[2018-02-02] MEDS: HYDROmorphone 2 MG/1 ML IVP PRN ×3 (07:34→20:32)
[2018-02-02] MEDS: FUROSEMIDE 40 MG TABLET PO SCH ×2 (07:34→13:15)
[2018-02-02] MEDS: GABAPENTIN 300 MG CAPSULE PO SCH ×4 (07:34→20:33)
[2018-02-02] MEDS: ENOXAPARIN SODIUM 40 MG/0.4 ML SYRINGE SUBCUT SCH (08:17)
[2018-02-02] MEDS: FOLIC ACID 1 MG TABLET PO SCH (08:17)
[2018-02-02] MEDS: Spironolactone Tab 25 MG TAB PO SCH (08:19)
[2018-02-02] MEDS: MESALAMINE 500 MG CAPSULE PO SCH ×2 (08:19→20:32)
[2018-02-02] MEDS: POTASSIUM CHLORIDE 20 MEQ TAB PO SCH ×2 (08:20→20:33)
[2018-02-02] MEDS: CYANOCOBALAMIN (VITAMIN B-12) 1,000 MCG TABLET.ER PO SCH (08:20)
[2018-02-02] MEDS: LOSARTAN 50 MG TABLET PO SCH (08:20)
[2018-02-02] MEDS: ESCITALOPRAM 10 MG TABLET PO SCH (08:20)
[2018-02-02] MEDS: ASPIRIN 325 MG TABLET PO SCH (08:20)
[2018-02-02] MEDS: VENLAFAXINE XR 75 MG CAP PO SCH (08:21)
[2018-02-02] MEDS: NYSTATIN 15 GM POWDER TOPICAL SCH ×3 (08:21→20:35)
[2018-02-02] MEDS: ISOSORBIDE MONONITRATE 30 MG SR 24H TABLET PO SCH (08:21)
[2018-02-02] MEDS: METOPROLOL SUCCINATE 25 MG SR 24H TABLET PO SCH (08:21)
[2018-02-02] MEDS: Sodium Chloride 0.9% 1,000 ML PRIMARY IV SCH ×3 (08:31→21:51)
--- NOTE | 2018-02-02 08:56 | PDOC(PROG) ---
Date of Service: 02/02/18 Time of Service: 08:45 Interval History: Subjective Patient still have abdominal pain. Is it diffuse mainly in the mid abdomen. Maybe not as bad as when she came in but she still have it. She said when she came in in addition to the abdominal pain she had back pain and she was vomiting. The vomiting seems to be stopped. She is having diarrhea she had 2 bowel movements already today. No blood. Objective : Data - Labs CBC and BMP: 02/02/18 04:50 02/02/18 04:50 Objective : Exam - General General Appearance: No Acute Distress, Cooperative - Head Head Exam: Normal Inspection - Eye Eye Exam: Normal Appearance - ENT ENT Exam: Normal Exam - Neck Neck Exam: Normal Inspection - Respiratory Respiratory Exam: Clear to Auscultation - Bilaterally - Cardiovascular Cardiovascular Exam: RRR - GI/Abdominal GI/Abdominal Exam: Soft Additional GI/Abdominal Exam Details: Abdomen is soft. There is tenderness though the mid abdomen more towards the left upper quadrant. Bowel sounds present. - Rectal Rectal Exam: Deferred - External Exam: Deferred Exam: Deferred - Extremities Extremities Exam: Normal Inspection - Back Back Exam: Normal Inspection - Neurological Neurological Exam: Alert, Oriented x 3, CN II-XII Intact, No Facial Droop, Speech Intact / Clear, Moves All Extremities Equally - Psychiatric Psychiatric Exam: Normal Affect - Integumentary Integumentary Exam: Normal Color Assessment and Plan - Patient Problems (1) Partial small bowel obstruction Current Visit: Yes Status: Acute Comment: It seems that she had some incarceration initially based on the notes but seems to be mostly reduced now. Because of the the pain and the tenderness I think probably will continue on ice chips and we will discuss with Dr. Murphy. Continue IV fluid and current pain medications. if She still have the pain consider repeating the CT scan tomorrow. Code(s): K56.600 - Partial intestinal obstruction, unspecified as to cause (2) Crohn disease Current Visit: Yes Status: Chronic Comment: She is on mesalamine. Will discuss with Dr. Murphy and see what he thinks whether this is contributing to her symptoms or not. esSpecially with diarrhea now. Code(s): K50.90 - Crohn's disease, unspecified, without complications Qualifiers: Gastrointestinal tract location: unspecified location Digestive disease complication type: without complication Qualified Code(s): K50.90 - Crohn's disease, unspecified, without complications (3) Benign essential hypertension Current Visit: Yes Status: Chronic Onset Date: 07/05/11 Comment: Continue Cozaar. Code(s): I10 - Essential (primary) hypertension (4) Chronic combined systolic and diastolic congestive heart failure Current Visit: Yes Status: Chronic Onset Date: 12/13/16 Comment: Continue Lasix and aldactone Code(s): I50.42 - Chronic combined systolic (congestive) and diastolic ( congestive) heart failure (5) GERD (gastroesophageal reflux disease) Current Visit: Yes Status: Chronic Onset Date: 12/13/10 Comment: continue protonix Code(s): K21.9 - Gastro-esophageal reflux disease without esophagitis Qualifiers: Esophagitis presence: esophagitis presence not specified Qualified Code(s) : K21.9 - Gastro-esophageal reflux disease without esophagitis (6) Hypothyroidism Current Visit: Yes Status: Chronic Onset Date: 06/01/11 Comment: Continue Synthroid Code(s): E03.9 - Hypothyroidism, unspecified Qualifiers: Hypothyroidism type: acquired Qualified Code(s): E03.9 - Hypothyroidism, unspecified (7) Type 2 diabetes mellitus without complication Current Visit: Yes Status: Chronic Onset Date: 07/02/16 Comment: sHe is on sliding scale continue and continue lantus Code(s): E11.9 - Type 2 diabetes mellitus without complications Qualifiers: Diabetes mellitus terminal gauger supervisor insulin use: with usp use Qualified Code( s): E11.9 - Type 2 diabetes mellitus without complications; Z79.4 - terminal operations supervisor ( current) use of insulin (8) Coronary artery disease Current Visit: Yes Status: Chronic Comment: Continue aspirin, Imdur. Code(s): I25.10 - Atherosclerotic heart disease of [place] coronary artery without angina pectoris Qualifiers: Coronary Disease-Associated Artery/Lesion type: [place] artery [place] vs. transplanted heart: [place] heart Associated angina: without angina Qualified Code(s): I25.10 - Atherosclerotic heart disease of [place] coronary artery without angina pectoris
[2018-02-02] MEDS: LUTEIN 6 MG PO SCH (09:35)
[2018-02-02] MEDS: TAMOXIFEN CITRATE 20 MG PO SCH (09:35)
[2018-02-02] MEDS: DICLOFENAC SODIUM TOPICAL SCH ×4 (09:36→20:36)
[2018-02-02] MEDS: Insulin Glargine SoloStar Inj 100 UNIT/ML INSULN.PEN SUBCUT SCH (20:30)
[2018-02-02] MEDS: ATORVASTATIN 40 MG TABLET PO SCH (20:33)
[2018-02-02] MEDS: ONDANSETRON 4 MG/2 ML VIAL IVP PRN (20:35)
--- NOTE | 2018-02-02 21:40 | EKG ---
[address] [place] [address] Measurements Intervals [place] Rate: 89 P: 66 VA: 139 QRS: 61 QRSD: 90 T: 38 QT: 392 QTc: 438 Interpretive Statements SINUS RHYTHM POSSIBLE LEFT ATRIAL ENLARGEMENT [-0.1mV P WAVE IN V1/V2] Compared to ECG 02/01/2018 07:53:25 No significant changes Electronically Signed On 02-03-18 08:38:36 MDT by Marvin Loza MD [email or web address]
[2018-02-03] MEDS: Sodium Chloride 0.9% 1,000 ML PRIMARY IV SCH (01:35)
[2018-02-03] MEDS: Prochlorperazine Edisylate Inj 10mg/2ml vial IV PRN (01:43)
[2018-02-03] MEDS: ONDANSETRON 4 MG/2 ML VIAL IVP PRN (03:19)
[2018-02-03 05:20] LABS: BASOPHILS # (AUTO) 0.02 10*3/UL; BASOPHILS % (AUTO) 0.3 % (0-1); EOSINOPHILS # (AUTO) 0.08 10*3/UL; EOSINOPHILS % (AUTO) 1.2 % (0-8); Hematocrit [HCT] 38.6 % (37.0-47.0); Hemoglobin [HGB] 12.3 g/dL (12.0-16.0); LYMPHOCYTES # (AUTO) 2.46 10*3/uL; MEAN CORPUSCULAR HEMOGLOBIN 28.9 PG (27-31); MEAN CORPUSCULAR HGB CONC 31.9 g/dL (33-37); MEAN CORPUSCULAR VOLUME 90.6 FL (81-99); MEAN PLATELET VOLUME 11.7 FL (7.4-12.2); MONOCYTES # (AUTO) 0.63 10*3/UL (0.3-0.8); MONOCYTES % (AUTO) 9.6 % (5-15); NEUTROPHILS # (AUTO) 3.39 10*3/UL; NEUTROPHILS % (AUTO) 51.4 % (50-80); RED BLOOD COUNT 4.26 10^6/uL (4.20-5.40)
[2018-02-03 05:28] LABS: BLOOD UREA NITROGEN 15 mg/dL (7-22); BUN/CREATININE RATIO 18.75 (6-20); SERUM ALBUMIN 3.8 g/dL (3.5-4.8)
[2018-02-03] MEDS ORDERED: ONDANSETRON 4 MG/2 ML VIAL IVP ONE (05:33)
[2018-02-03 05:49] LABS: PLATELET MORPHOLOGY COMMENT NORMAL MORPHOLOGY (NORM); RBC MORPHOLOGY COMMENT NORMAL MORPHOLOGY (NORM); WBC MORPHOLOGY COMMENT NORMAL MORPHOLOGY (NORM)
[2018-02-03] MEDS: HYDROmorphone 2 MG/1 ML IVP PRN ×3 (05:54→18:54)
[2018-02-03] MEDS: Insulin Lispro Flexpen 300 UNIT/3 ML INSULN.PEN SUBCUT SCH ×4 (07:14→20:30)
--- NOTE | 2018-02-03 08:22 | PDOC(PROG) ---
Date of Service: 02/03/18 Time of Service: 08:10 Interval History: Subjective I did speak with Dr. Murphy yesterday and he suggested starting clear liquid we did that. She said she tolerated that until late last night when she started to have worsening pain and nausea. In addition to that she had bloating. Early this morning she vomited. They gave her an extra dose of for Zofran and Dilaudid and that seemed to help. Her pain is worse she said when she moves. Nausea still there. Objective : Data - Labs CBC and BMP: 02/03/18 04:25 02/03/18 04:25 Objective : Exam - General Additional General Exam Details: Looks tired - Head Head Exam: Normal Inspection - Eye Eye Exam: Normal Appearance - ENT ENT Exam: Normal Exam - Neck Neck Exam: Normal Inspection - Respiratory Respiratory Exam: Clear to Auscultation - Bilaterally - Cardiovascular Cardiovascular Exam: RRR - GI/Abdominal GI/Abdominal Exam: Soft, Distended Additional GI/Abdominal Exam Details: She is obese which make it difficult to assess her girth but I think it is more distended compared to yesterday when I saw her for the first time. There is tenderness which is diffuse but abdomen is still soft bowel sounds present. - Rectal Rectal Exam: Deferred - External Exam: Deferred - Extremities Extremities Exam: Normal Inspection - Back Back Exam: Normal Inspection - Neurological Neurological Exam: Alert, Oriented x 3, CN II-XII Intact, No Facial Droop, Speech Intact / Clear, Moves All Extremities Equally - Psychiatric Psychiatric Exam: Normal Affect Assessment and Plan - Patient Problems (1) Partial small bowel obstruction Current Visit: Yes Status: Acute Comment: Abdomen is more distended today we put her back on nothing by mouth. Will insert an NG. I did speak with Dr. Murphy suggests CT enterography. I did order that. Code(s): K56.600 - Partial intestinal obstruction, unspecified as to cause (2) Crohn disease Current Visit: Yes Status: Chronic Comment: She had a history of Crohn's disease, she got her medication yesterday. She said she used to see Dr. Andino for it but it's been a while. Code(s): K50.90 - Crohn's disease, unspecified, without complications Qualifiers: Gastrointestinal tract location: unspecified location Digestive disease complication type: without complication Qualified Code(s): K50.90 - Crohn's disease, unspecified, without complications (3) Chronic combined systolic and diastolic congestive heart failure Current Visit: Yes Status: Chronic Onset Date: 12/13/16 Comment: We'll hold diuretics today Code(s): I50.42 - Chronic combined systolic (congestive) and diastolic ( congestive) heart failure (4) GERD (gastroesophageal reflux disease) Current Visit: Yes Status: Chronic Onset Date: 12/13/10 Comment: She is on Protonix Code(s): K21.9 - Gastro-esophageal reflux disease without esophagitis Qualifiers: Esophagitis presence: esophagitis presence not specified Qualified Code(s) : K21.9 - Gastro-esophageal reflux disease without esophagitis (5) Hypothyroidism Current Visit: Yes Status: Chronic Onset Date: 06/01/11 Comment: We will hold her medication for today Code(s): E03.9 - Hypothyroidism, unspecified Qualifiers: Hypothyroidism type: acquired Qualified Code(s): E03.9 - Hypothyroidism, unspecified (6) Type 2 diabetes mellitus without complication Current Visit: Yes Status: Chronic Onset Date: 07/02/16 Comment: She is on Lantus and sliding scale, will cut back on the dosage of the Lantus. Code(s): E11.9 - Type 2 diabetes mellitus without complications Qualifiers: Diabetes mellitus chcf insulin use: with chcf use Qualified Code( s): E11.9 - Type 2 diabetes mellitus without complications; Z79.4 - care home ( current) use of insulin
[2018-02-03] MEDS: GABAPENTIN 300 MG CAPSULE PO SCH ×4 (09:00→20:16)
[2018-02-03] MEDS: LEVOTHYROXINE 50 MCG TABLET PO SCH (09:00)
[2018-02-03] MEDS: FUROSEMIDE 40 MG TABLET PO SCH ×2 (09:00→14:41)
[2018-02-03] MEDS: PANTOPRAZOLE 40 MG TABLET PO SCH ×2 (09:01→17:08)
[2018-02-03] MEDS: LOSARTAN 50 MG TABLET PO SCH (09:03)
[2018-02-03] MEDS: ASPIRIN 325 MG TABLET PO SCH (09:03)
[2018-02-03] MEDS: Spironolactone Tab 25 MG TAB PO SCH (09:03)
[2018-02-03] MEDS: ISOSORBIDE MONONITRATE 30 MG SR 24H TABLET PO SCH (09:04)
[2018-02-03] MEDS: VENLAFAXINE XR 75 MG CAP PO SCH (09:04)
[2018-02-03] MEDS: POTASSIUM CHLORIDE 20 MEQ TAB PO SCH ×2 (09:04→20:16)
[2018-02-03] MEDS: FOLIC ACID 1 MG TABLET PO SCH (09:04)
[2018-02-03] MEDS: ESCITALOPRAM 10 MG TABLET PO SCH (09:05)
[2018-02-03] MEDS: LUTEIN 6 MG PO SCH (09:05)
[2018-02-03] MEDS: METOPROLOL SUCCINATE 25 MG SR 24H TABLET PO SCH (09:06)
[2018-02-03] MEDS: TAMOXIFEN CITRATE 20 MG PO SCH (09:06)
[2018-02-03] MEDS: CYANOCOBALAMIN (VITAMIN B-12) 1,000 MCG TABLET.ER PO SCH (09:06)
[2018-02-03] MEDS: MESALAMINE 500 MG CAPSULE PO SCH ×2 (09:06→20:16)
[2018-02-03] MEDS: ENOXAPARIN SODIUM 40 MG/0.4 ML SYRINGE SUBCUT SCH (09:44)
[2018-02-03] MEDS: NYSTATIN 15 GM POWDER TOPICAL SCH ×2 (09:49→16:38)
[2018-02-03] MEDS: DICLOFENAC SODIUM TOPICAL SCH ×4 (10:10→20:15)
--- NOTE | 2018-02-03 10:45 | PTI REPORT ---
Thank you for the referral of Bharati Cochran. She was seen on 02/02/18 for an inpatient evaluation secondary to weakness. SUBJECTIVE: The patient is a 72-year-old female. The patient reports that she lives in a handicap accessible home with her and her grandchild. The patient was previously independent. She has a four wheeled walker at home and wears oxygen when she needs it. The patient reports she came to the hospital with back pain , abdominal pain, and vomiting. The patient reports that she has not fallen recently and she still drives. PAST MEDICAL HISTORY: Past medical history can be found in the patient's medical record. OBJECTIVE FINDINGS: General observations: The patient was supine in bed with 1 liter of oxygen and IV connected upon the therapist's arrival. Bed mobility: The patient required stand by assist for supine to sit transfer to the edge of bed. Transfers: The patient required contact guard assist to transfer from sit to stand from edge of bed. Balance: The patient demonstrated fair static balance when placed in close base of support. The patient was able to stand x30 seconds with eyes open without loss of balance. The patient was able to stand x7 seconds with eyes closed with narrow base of support. When nudged with narrow base of support, the patient began to demonstrate posterior sway and was able to self correct. Ambulation: Gait was analyzed. The patient used a front wheeled walker and tended to run into k[place]li. Overall, gait was steady with the walker. While turning, the patient demonstrated running into kohli occasionally (3/5 times). ASSESSMENT: The patient is a 72-year-old female that presents with weakness, decreased balance, and decreased functional mobility. The patient would benefit from skilled therapy in order to improve functional mobility and strength. The patient's prognosis for therapy is fair to good. Problem List: Decreased strength Decreased balance Decreased endurance Short-Term Goals: To be met by discharge from inpatient: Patient will be independent with all transfers with least restrictive assistive device. Patient will be able to tolerate 15 minutes of continuous activity to improve endurance. Patient will be able to stand with narrow base of support for 15 seconds with eyes closed without loss of balance. Long-Term Goals: To be met following discharge from inpatient: Patient will be able to return home to prior level of function. Patient may benefit from seeing outpatient physical therapy. TREATMENT PLAN: Patient will be seen B.I.D during the week and one time per day over the weekend as an inpatient for therapeutic exercises, functional mobility, neuromuscular reeducation, gait training, and modalities as needed. INITIAL TREATMENT: Treatment today consisted of the initial evaluation. The patient ambulated around the nurse's station x2, approximately 300 feet with contact guard assist and minimal cues for direction. The patient was returned to her room with bed alarm activated, oxygen at 1 liter, IV in place, and call light within reach. MTDD
--- NOTE | 2018-02-03 12:31 | PDOC(PROG) ---
Subjective Ricardo Catheter: No Flatus: Yes Diet: NPO Ambulating: Yes Date of Service: 02/03/18 Time of Service: 12:30 Interval History: 72-year-old female who states that she is actually feeling worse today. Little bit better after having the NG tube place. Patient had a CT scan which shows about partial small bowel obstruction with transition point in the mid jejunum no evidence of ischemia Objective : Data - Labs CBC and BMP: 02/03/18 04:25 02/03/18 04:25 - Vital Signs Vital Signs and I&O: Vital Signs - Last Taken Temperature 97.7 F 02/03/18 10:56 Pulse Rate 88 02/03/18 10:56 Respiratory Rate 20 02/03/18 10:56 Blood Pressure 140/62 02/03/18 10:56 Pulse Ox 97 02/03/18 10:56 Intake and Output (24hr x 4 totals) 02/01/18 02/02/18 02/03/18 02/04/18 05:59 05:59 05:59 05:59 Intake Total 2905 / 2905 4239 / 4239 Output Total 2520 / 2520 2900 / 2900 1400 / 1400 Balance 385 / 385 1339 / 1339 -1400 / -1400 Objective : Exam - GI/Abdominal GI/Abdominal Exam: Soft, Distended Assessment and Plan - Patient Problems (1) Ascites Current Visit: Yes Status: Acute Code(s): R18.8 - Other ascites (2) Dehydration Current Visit: Yes Status: Acute Code(s): E86.0 - Dehydration (3) Umbilical hernia Current Visit: Yes Status: Chronic Onset Date: 10/30/11 Code(s): K42.9 - Umbilical hernia without obstruction or gangrene (4) Abdominal pain Current Visit: No Status: Acute Onset Date: 03/04/12 Code(s): R10.9 - Unspecified abdominal pain (5) Partial small bowel obstruction Current Visit: Yes Status: Acute Code(s): K56.600 - Partial intestinal obstruction, unspecified as to cause - Assessment / Plan Additional Assessment/Plan Details: CT scan does show she has a progress partial small bowel obstruction. The question is whether this is from adhesions are from her Crohn's disease. I would like to treat her conservatively today with NG tube in place. Reevaluate in the morning do flatplate and upright in the a.m.
--- NOTE | 2018-02-03 18:37 | DI ---
CT Abdomen/Pelvis W Contrast 02/03/2018 11:00 AM History: abdominal pain, vomiting and distention ^CT enterography with oral and IV contrast Comparison: CT abdomen/pelvis with contrast 02/01/2018. Technique: Imaging was performed with a multi-detector CT scanner. Data acquisition was obtained from the dome of the diaphragm through the pubic symphysis with Volumen oral contrast and after the uneve ntful administration of 75 mL of Isovue intravenous contrast material. Multiplanar reformations were performed. Findings: An enteric tube is in place with the tip in the stomach. The lung bases are notable for bibasilar atelectasis versus scar. Heart size is at the upper limits o f normal with dense mitral calcifications. Aortic and coronary artery calcifications are also noted. There are multiple mildly dilated loops of bowel extending from the duodenum into the jejunum and pro ximal ileum. The distal ileum and colon are relatively decompressed. Free fluid is noted in the right lower quadrant and lower pelvis. There is colonic diverticulosis without CT evidence of acute divert iculitis. The appendix is unremarkable. The liver exhibits a cirrhotic morphology with mild perihepatic fluid. Surgical clips are present in the gallbladder fossa. There is normal CT appearance of the adrenal glands, spleen, left kidney, and pancreas. There is a 1.2 cm simple cyst in the medial interpolar region of the right kidney. There ar e several shotty ivis hepatis nodes, not pathologically enlarged by CT size criteria. There is a 1.8 cm fat-containing umbilical hernia. The uterus and adnexa are unremarkable, though better evaluated with pelvic ultrasound. The osseous structures are not significantly changed with grade 1 anterolisthesis of L4 on L5.. Impression: 1. Multiple dilated loops of proximal small bowel with relative decompression in the distal ileum and colon. This could represent ileus versus partial small bowel obstruction. Close clinical followup is recommended with low threshold for repeat imaging. 2. Incidental findings as outlined above.
[2018-02-03] MEDS: ATORVASTATIN 40 MG TABLET PO SCH (20:16)
[2018-02-03] MEDS ORDERED: Insulin Glargine SoloStar Inj 100 UNIT/ML INSULN.PEN SUBCUT SCH (21:00)
[2018-02-04] MEDS: NYSTATIN 15 GM POWDER TOPICAL SCH ×4 (00:25→20:48)
[2018-02-04] MEDS: HYDROmorphone 2 MG/1 ML IVP PRN ×5 (00:25→20:47)
[2018-02-04] MEDS: LEVOTHYROXINE 50 MCG TABLET PO SCH (04:32)
[2018-02-04 05:33] LABS: BASOPHILS # (AUTO) 0.02 10*3/UL; BASOPHILS % (AUTO) 0.3 % (0-1); EOSINOPHILS # (AUTO) 0.15 10*3/UL; EOSINOPHILS % (AUTO) 2.4 % (0-8); Hematocrit [HCT] 35.9 % (37.0-47.0); Hemoglobin [HGB] 11.4 g/dL (12.0-16.0); LYMPHOCYTES # (AUTO) 2.94 10*3/uL; MEAN CORPUSCULAR HEMOGLOBIN 28.9 PG (27-31); MEAN CORPUSCULAR HGB CONC 31.8 g/dL (33-37); MEAN CORPUSCULAR VOLUME 91.1 FL (81-99); MEAN PLATELET VOLUME 11.7 FL (7.4-12.2); MONOCYTES # (AUTO) 0.54 10*3/UL (0.3-0.8); MONOCYTES % (AUTO) 8.5 % (5-15); NEUTROPHILS # (AUTO) 2.66 10*3/UL; NEUTROPHILS % (AUTO) 42.1 % (50-80); RED BLOOD COUNT 3.94 10^6/uL (4.20-5.40)
[2018-02-04 05:50] LABS: PLATELET MORPHOLOGY COMMENT NORMAL MORPHOLOGY (NORM); RBC MORPHOLOGY COMMENT NORMAL MORPHOLOGY (NORM); WBC MORPHOLOGY COMMENT NORMAL MORPHOLOGY (NORM)
[2018-02-04 05:58] LABS: BLOOD UREA NITROGEN 12 mg/dL (7-22); SERUM ALBUMIN 3.3 g/dL (3.5-4.8)
[2018-02-04] MEDS: Insulin Lispro Flexpen 300 UNIT/3 ML INSULN.PEN SUBCUT SCH ×4 (07:37→21:04)
[2018-02-04] MEDS: FUROSEMIDE 40 MG TABLET PO SCH ×2 (08:16→13:01)
[2018-02-04] MEDS: GABAPENTIN 300 MG CAPSULE PO SCH ×4 (08:16→21:00)
[2018-02-04] MEDS: PANTOPRAZOLE 40 MG TABLET PO SCH (08:16)
--- NOTE | 2018-02-04 08:42 | DI ---
XR ABDOMEN ACUTE 2/ABD 1/CXR 02/04/2018 7:00 AM History: small bowel obstruction Comparison: CT abdomen/pelvis 02/03/2018. Findings: Single frontal view of the chest shows normal aeration of the lungs without focal consolid ation, effusion, or pneumothorax. An enteric tube courses midline with the tip projecting over the le ft upper quadrant. Cardiomediastinal silhouette is at the upper limits of normal with atheromatous ca lcifications in the arch of the tortuous aorta. Dense mitral calcifications are noted. Surgical clips project over the right axilla. No free air is seen below the diaphragm. Flat and upright views of the abdomen demonstrate multiple prominent and dilated loops of bowel throu ghout the abdomen with air-fluid levels. There is gas distally. No suspicious calcifications are seen over the expected course of the upper urinary tracts. The visualized osseous structures are not sign ificantly changed. Impression: There are multiple prominent and dilated loops of bowel throughout the abdomen with with air-fluid levels. There is gas distally. This can be seen in the setting of ileus versus partial smal l bowel obstruction. Continued close clinical and imaging followup is recommended.
--- NOTE | 2018-02-04 08:54 | PDOC(PROG) ---
Date of Service: 02/04/18 Time of Service: 09:00 Interval History: Subjective Patient feels better today compared to yesterday. She said her abdominal pain is down to 2 out of 10. She did have a bowel movement , she's not sure about the timing but it was a large bowel movement and liquid. She is passing gas. Her abdomen is not as distended as yesterday. She did receive Dilaudid but she said it's mainly for her back and her legs. And these are old symptoms. Objective : Data - Labs CBC and BMP: 02/04/18 04:30 02/04/18 04:30 Objective : Exam - General General Appearance: No Acute Distress, Cooperative, Morbidly Obese - Head Head Exam: Normal Inspection - Eye Eye Exam: Normal Appearance - ENT ENT Exam: Normal Exam - Neck Neck Exam: Normal Inspection - Respiratory Respiratory Exam: Clear to Auscultation - Bilaterally - Cardiovascular Cardiovascular Exam: RRR - GI/Abdominal Additional GI/Abdominal Exam Details: Abdomen is soft, it's less distended compared to yesterday. Bowel sounds are sluggish. No significant tenderness like yesterday. No rebound. No organomegaly. - Rectal Rectal Exam: Deferred - External Exam: Deferred Exam: Deferred - Extremities Extremities Exam: Normal Inspection - Back Back Exam: Normal Inspection - Neurological Neurological Exam: Alert, Oriented x 3, CN II-XII Intact, No Facial Droop, Speech Intact / Clear, Moves All Extremities Equally - Psychiatric Psychiatric Exam: Normal Affect - Integumentary Integumentary Exam: Normal Color Assessment and Plan - Patient Problems (1) Partial small bowel obstruction Current Visit: Yes Status: Acute Comment: I think she is better today compared to yesterday. The x-ray still shows some air/fluid levels though. There is gas in the distal part. I think I 'll talk to Dr. Irvin Sims and see what he thinks about clamping the tube and putting her on some clear or wait another day. Code(s): K56.600 - Partial intestinal obstruction, unspecified as to cause (2) Crohn disease Current Visit: Yes Status: Chronic Comment: We decided not to start her on steroids. Probably more adhesions or ileus causing her symptoms. Code(s): K50.90 - Crohn's disease, unspecified, without complications Qualifiers: Gastrointestinal tract location: unspecified location Digestive disease complication type: without complication Qualified Code(s): K50.90 - Crohn's disease, unspecified, without complications (3) Chronic combined systolic and diastolic congestive heart failure Current Visit: Yes Status: Chronic Onset Date: 12/13/16 Comment: Continue holding the diuretics for now. Code(s): I50.42 - Chronic combined systolic (congestive) and diastolic ( congestive) heart failure (4) GERD (gastroesophageal reflux disease) Current Visit: Yes Status: Chronic Onset Date: 12/13/10 Comment: Continue Protonix Code(s): K21.9 - Gastro-esophageal reflux disease without esophagitis Qualifiers: Esophagitis presence: esophagitis presence not specified Qualified Code(s) : K21.9 - Gastro-esophageal reflux disease without esophagitis (5) Hypothyroidism Current Visit: Yes Status: Chronic Onset Date: 06/01/11 Comment: Hold lisinopril for now Code(s): E03.9 - Hypothyroidism, unspecified Qualifiers: Hypothyroidism type: acquired Qualified Code(s): E03.9 - Hypothyroidism, unspecified (6) Type 2 diabetes mellitus without complication Current Visit: Yes Status: Chronic Onset Date: 07/02/16 Comment: Blood sugar is acceptable. Will use only sliding scale for now. Code(s): E11.9 - Type 2 diabetes mellitus without complications Qualifiers: Diabetes mellitus fci insulin use: with fci use Qualified Code( s): E11.9 - Type 2 diabetes mellitus without complications; Z79.4 - senior care ( current) use of insulin
[2018-02-04] MEDS: ASPIRIN 325 MG TABLET PO SCH (09:03)
[2018-02-04] MEDS: Spironolactone Tab 25 MG TAB PO SCH (09:03)
[2018-02-04] MEDS: DICLOFENAC SODIUM TOPICAL SCH ×4 (09:04→20:38)
[2018-02-04] MEDS: MESALAMINE 500 MG CAPSULE PO SCH ×2 (09:04→20:46)
[2018-02-04] MEDS: ISOSORBIDE MONONITRATE 30 MG SR 24H TABLET PO SCH (09:04)
[2018-02-04] MEDS: LOSARTAN 50 MG TABLET PO SCH (09:04)
[2018-02-04] MEDS: VENLAFAXINE XR 75 MG CAP PO SCH (09:04)
[2018-02-04] MEDS: POTASSIUM CHLORIDE 20 MEQ TAB PO SCH ×2 (09:04→20:46)
[2018-02-04] MEDS: TAMOXIFEN CITRATE 20 MG PO SCH (09:04)
[2018-02-04] MEDS: ESCITALOPRAM 10 MG TABLET PO SCH (09:05)
[2018-02-04] MEDS: ENOXAPARIN SODIUM 40 MG/0.4 ML SYRINGE SUBCUT SCH ×2 (09:05→11:36)
[2018-02-04] MEDS: LUTEIN 6 MG PO SCH (09:05)
[2018-02-04] MEDS: CYANOCOBALAMIN (VITAMIN B-12) 1,000 MCG TABLET.ER PO SCH (09:05)
[2018-02-04] MEDS: FOLIC ACID 1 MG TABLET PO SCH (09:05)
[2018-02-04] MEDS: METOPROLOL SUCCINATE 25 MG SR 24H TABLET PO SCH (09:05)
[2018-02-04] MEDS: PANTOPRAZOLE IV 40 MG VIAL IVP SCH ×2 (09:48→20:47)
--- NOTE | 2018-02-04 12:15 | PDOC(PROG) ---
Date of Service: 02/04/18 Time of Service: 12:15 Interval History: Patient states that she's feeling better. She had a liquid stool today and is passing gas. Objective : Data - Labs CBC and BMP: 02/04/18 04:30 02/04/18 04:30 - Vital Signs Vital Signs and I&O: Vital Signs - Last Taken Temperature 98.1 F 02/04/18 11:21 Pulse Rate 99 02/04/18 11:21 Respiratory Rate 20 02/04/18 11:21 Blood Pressure 162/57 02/04/18 11:21 Pulse Ox 96 02/04/18 11:21 Intake and Output (24hr x 4 totals) 02/02/18 02/03/18 02/04/18 02/05/18 05:59 05:59 05:59 05:59 Intake Total 2905 / 2905 4239 / 4239 2659 / 2659 Output Total 2520 / 2520 2900 / 2900 2375 / 2375 350 / 350 Balance 385 / 385 1339 / 1339 284 / 284 -350 / -350 Objective : Exam - General General Appearance: No Acute Distress, Cooperative - GI/Abdominal GI/Abdominal Exam: Non Tender, Non Distended, Soft Assessment and Plan - Patient Problems (1) Ascites Current Visit: Yes Status: Acute Code(s): R18.8 - Other ascites (2) Dehydration Current Visit: Yes Status: Acute Code(s): E86.0 - Dehydration (3) Umbilical hernia Current Visit: Yes Status: Chronic Onset Date: 10/30/11 Code(s): K42.9 - Umbilical hernia without obstruction or gangrene (4) Abdominal pain Current Visit: No Status: Acute Onset Date: 03/04/12 Code(s): R10.9 - Unspecified abdominal pain (5) Partial small bowel obstruction Current Visit: Yes Status: Acute Code(s): K56.600 - Partial intestinal obstruction, unspecified as to cause - Assessment / Plan Additional Assessment/Plan Details: Patient sounds like that she is opened up a little bit today. She still has some air-fluid levels on x-ray but there is air in the colon. Will have her on suction until 4 PM the may start clear liquid diet with NG tube in place. Reevaluate in the a.m. if opened up she may have NG tube removed or she starts to throw up again may have to do surgery
--- NOTE | 2018-02-04 13:21 | PT.PROG ---
Progress Note Progress Note: S. Patient stated that she is feeling better today compared to yesterday and would like to do some exercises. O. Patient transferred, from supine to seated at the edge of bed where she performed seated exercises in the form of; long arc quads, marches, resisted knee flexion, clam shells, heel toe raises, and pillow squeezes all x 10 bilaterally with red thera band. Patient was left at edge of bed with alarm and call light. A. Patient tolerated therapy well this morning, she was limited by the NG tube this morning. Patient would continue to benefit from skilled therapy to increase strength and endurance at this time. P. continue POC.
--- NOTE | 2018-02-04 15:37 | PT.PROG ---
Progress Note Progress Note: S. Patient stated that she would like to go for a walk this afternoon. O. Patient ambulated 300 feet around the nurses station, then was left in the chair with OT for further therapy. A. Patient tolerated ambulation well, she was able to ambulate with no pain or problems, she was fatigued after ambulation and was unable to perform more exercises. Patient would continue to benefit from skilled therapy to increase strength and endurance. P. Continue POC.
[2018-02-04] MEDS: ATORVASTATIN 40 MG TABLET PO SCH (20:47)
[2018-02-05] MEDS: HYDROmorphone 2 MG/1 ML IVP PRN ×2 (03:39→08:48)
[2018-02-05] MEDS: LEVOTHYROXINE 50 MCG TABLET PO SCH (04:42)
[2018-02-05] MEDS: GABAPENTIN 300 MG CAPSULE PO SCH ×4 (07:12→20:00)
[2018-02-05] MEDS: FUROSEMIDE 40 MG TABLET PO SCH ×2 (07:12→12:22)
[2018-02-05] MEDS: Insulin Lispro Flexpen 300 UNIT/3 ML INSULN.PEN SUBCUT SCH ×4 (07:15→20:01)
--- NOTE | 2018-02-05 08:31 | PDOC(PROG) ---
Date of Service: 02/05/18 Time of Service: 08:15 Interval History: Subjective Patient is denying abdominal pain today. There is no nausea today. She is not sure whether she had a bowel movement but she is passing lots of gas according to her and mucus. No shortness of breath or chest pain. Objective : Data - Labs CBC and BMP: 02/04/18 04:30 02/04/18 04:30 Objective : Exam - General General Appearance: No Acute Distress, Cooperative, Morbidly Obese - Head Head Exam: Normal Inspection - Eye Eye Exam: Normal Appearance - ENT ENT Exam: Normal Exam - Neck Neck Exam: Normal Inspection - Respiratory Respiratory Exam: Clear to Auscultation - Bilaterally - Cardiovascular Cardiovascular Exam: RRR - GI/Abdominal GI/Abdominal Exam: Non Tender, Non Distended, Soft, No Organomegaly Additional GI/Abdominal Exam Details: Bowel sound present. Sluggish. No tenderness. - Rectal Rectal Exam: Deferred - External Exam: Deferred Exam: Deferred - Extremities Extremities Exam: Normal Inspection - Back Back Exam: Normal Inspection - Neurological Neurological Exam: Alert, Oriented x 3, CN II-XII Intact, No Facial Droop, Speech Intact / Clear, Moves All Extremities Equally - Psychiatric Psychiatric Exam: Normal Affect - Integumentary Integumentary Exam: Normal Color Assessment and Plan - Patient Problems (1) Partial small bowel obstruction Current Visit: Yes Status: Acute Comment: Seems to be resolving. I think will DC the NG tube. We'll advance her diet to full liquid diet. We will watch her another night we'll see how things looks tomorrow. Code(s): K56.600 - Partial intestinal obstruction, unspecified as to cause (2) Crohn disease Current Visit: Yes Status: Chronic Comment: Continue mesalamine Code(s): K50.90 - Crohn's disease, unspecified, without complications Qualifiers: Gastrointestinal tract location: unspecified location Digestive disease complication type: without complication Qualified Code(s): K50.90 - Crohn's disease, unspecified, without complications (3) Chronic combined systolic and diastolic congestive heart failure Current Visit: Yes Status: Chronic Onset Date: 12/13/16 Comment: We restarted her Lasix. We'll cut back on her IV fluid and maybe stop it at one point today Code(s): I50.42 - Chronic combined systolic (congestive) and diastolic ( congestive) heart failure (4) GERD (gastroesophageal reflux disease) Current Visit: Yes Status: Chronic Onset Date: 12/13/10 Comment: Continue Protonix Code(s): K21.9 - Gastro-esophageal reflux disease without esophagitis Qualifiers: Esophagitis presence: esophagitis presence not specified Qualified Code(s) : K21.9 - Gastro-esophageal reflux disease without esophagitis (5) Hypothyroidism Current Visit: Yes Status: Chronic Onset Date: 06/01/11 Comment: Same med Code(s): E03.9 - Hypothyroidism, unspecified Qualifiers: Hypothyroidism type: acquired Qualified Code(s): E03.9 - Hypothyroidism, unspecified (6) Type 2 diabetes mellitus without complication Current Visit: Yes Status: Chronic Onset Date: 07/02/16 Comment: Continue sliding scale Code(s): E11.9 - Type 2 diabetes mellitus without complications Qualifiers: Diabetes mellitus group home insulin use: with manager intermediate use Qualified Code( s): E11.9 - Type 2 diabetes mellitus without complications; Z79.4 - [facility] ( current) use of insulin
--- NOTE | 2018-02-05 08:40 | DI ---
XR ABDOMEN KUB UPRIGHT 02/05/2018 7:00 AM History: small bowel obstruction Comparison: Acute abdominal series from the previous day. Findings: Captured portions of the lung base demonstrate patchy bibasilar atelectasis. There is no fo chapis consolidation, effusion, or pneumothorax. Cardiomediastinal silhouette is at the upper limits of normal. An enteric tube courses midline with the tip projecting over the left upper quadrant. Flat and upright views of the abdomen demonstrate multiple dilated and prominent loops of bowel with air-fluid levels, although there is stool and gas in the distribution of the colon to the distal rect um. No free air is seen below the diaphragm. No suspicious calcifications are seen over the expected course of the upper urinary tracts. The visualized osseous structures are not significantly changed. Surgical clips project over the right breast and right paraspinal region at the L1 level. Impression: Persistent dilated loops of bowel with air-fluid levels, though there is distal stool and gas. Differential considerations are unchanged.
[2018-02-05] MEDS: MESALAMINE 500 MG CAPSULE PO SCH ×2 (08:46→19:59)
[2018-02-05] MEDS: METOPROLOL SUCCINATE 25 MG SR 24H TABLET PO SCH (08:47)
[2018-02-05] MEDS: FOLIC ACID 1 MG TABLET PO SCH (08:47)
[2018-02-05] MEDS: ASPIRIN 325 MG TABLET PO SCH (08:47)
[2018-02-05] MEDS: ISOSORBIDE MONONITRATE 30 MG SR 24H TABLET PO SCH (08:47)
[2018-02-05] MEDS: VENLAFAXINE XR 75 MG CAP PO SCH (08:47)
[2018-02-05] MEDS: POTASSIUM CHLORIDE 20 MEQ TAB PO SCH ×2 (08:47→19:59)
[2018-02-05] MEDS: ESCITALOPRAM 10 MG TABLET PO SCH (08:47)
[2018-02-05] MEDS: LOSARTAN 50 MG TABLET PO SCH (08:47)
[2018-02-05] MEDS: CYANOCOBALAMIN (VITAMIN B-12) 1,000 MCG TABLET.ER PO SCH (08:47)
[2018-02-05] MEDS: Spironolactone Tab 25 MG TAB PO SCH (08:48)
[2018-02-05] MEDS: PANTOPRAZOLE IV 40 MG VIAL IVP SCH ×2 (08:48→20:00)
[2018-02-05] MEDS: NYSTATIN 15 GM POWDER TOPICAL SCH ×3 (08:48→20:00)
--- NOTE | 2018-02-05 09:21 | PDOC(PROG) ---
Date of Service: 02/05/18 Time of Service: 09:20 Interval History: Patient tolerated having the NG tube clamped. She is x-ray tolerating diet. Patient has NG order removed. Patient's had bowel movements. X-ray looks better today although there is dilated loops of bowel with small air-fluid levels. Objective : Data - Labs CBC and BMP: 02/04/18 04:30 02/04/18 04:30 - Vital Signs Vital Signs and I&O: Vital Signs - Last Taken Temperature 97 F 02/05/18 07:28 Pulse Rate 90 02/05/18 07:28 Respiratory Rate 18 02/05/18 07:28 Blood Pressure 160/62 02/05/18 07:28 Pulse Ox 97 02/05/18 07:28 Intake and Output (24hr x 4 totals) 02/03/18 02/04/18 02/05/18 02/06/18 05:59 05:59 05:59 05:59 Intake Total 4239 / 4239 2659 / 2659 2367 / 2367 Output Total 2900 / 2900 2375 / 2375 1275 / 1275 750 / 750 Balance 1339 / 1339 284 / 284 1092 / 1092 -750 / -750 Objective : Exam - General General Appearance: No Acute Distress - GI/Abdominal GI/Abdominal Exam: Non Tender, Soft Assessment and Plan - Patient Problems (1) Ascites Current Visit: Yes Status: Acute Code(s): R18.8 - Other ascites (2) Dehydration Current Visit: Yes Status: Acute Code(s): E86.0 - Dehydration (3) Umbilical hernia Current Visit: Yes Status: Chronic Onset Date: 10/30/11 Code(s): K42.9 - Umbilical hernia without obstruction or gangrene (4) Abdominal pain Current Visit: No Status: Acute Onset Date: 03/04/12 Code(s): R10.9 - Unspecified abdominal pain (5) Partial small bowel obstruction Current Visit: Yes Status: Acute Code(s): K56.600 - Partial intestinal obstruction, unspecified as to cause - Assessment / Plan Additional Assessment/Plan Details: Overall the patient is doing better. Will give a trial of diet today. Tolerates as can be discharged home. I would recommend that she follows up with her vocational education professional Dr. Andino for the Crohn's disease.
[2018-02-05 09:27] LABS: BASOPHILS # (AUTO) 0.03 10*3/UL; BASOPHILS % (AUTO) 0.4 % (0-1); EOSINOPHILS # (AUTO) 0.13 10*3/UL; EOSINOPHILS % (AUTO) 1.6 % (0-8); Hematocrit [HCT] 38.9 % (37.0-47.0); Hemoglobin [HGB] 12.2 g/dL (12.0-16.0); MEAN CORPUSCULAR HEMOGLOBIN 28.2 PG (27-31); MEAN CORPUSCULAR HGB CONC 31.4 g/dL (33-37); MEAN PLATELET VOLUME 11.6 FL (7.4-12.2); MONOCYTES # (AUTO) 0.48 10*3/UL (0.3-0.8); NEUTROPHILS # (AUTO) 4.67 10*3/UL; NEUTROPHILS % (AUTO) 58.8 % (50-80); RED BLOOD COUNT 4.32 10^6/uL (4.20-5.40)
[2018-02-05 09:29] LABS: PLATELET MORPHOLOGY COMMENT NORMAL MORPHOLOGY (NORM); RBC MORPHOLOGY COMMENT NORMAL MORPHOLOGY (NORM); WBC MORPHOLOGY COMMENT NORMAL MORPHOLOGY (NORM)
[2018-02-05] MEDS: DICLOFENAC SODIUM TOPICAL SCH ×4 (09:45→20:00)
[2018-02-05] MEDS: TAMOXIFEN CITRATE 20 MG PO SCH (09:45)
[2018-02-05] MEDS: LUTEIN 6 MG PO SCH (09:47)
[2018-02-05 09:51] LABS: BLOOD UREA NITROGEN 8 mg/dL (7-22); BUN/CREATININE RATIO 13.33 (6-20)
--- NOTE | 2018-02-05 11:45 | OT.PROG ---
Progress Note Progress Note: S: pt stated she was feeling better and agreed to therapy services. O: tx consisted of functional ambulation x10' with 4WW and CGA for safety to toilet. pt completed toilet transfer, tasks and hygiene independently. pt completed functional ambulation with 4WW x 70' with CGA for safety. pt completed red UE RTB exercises in all planes of motion x 20 each other than flexion where she completed x10 each, pt completed 3# biceps curls x15, 1# chest press and shoulder press x10 each, dowel horizontal abduction x 15, dynamic sitting exercises with forward flexion and functional reaching. A: pt tolerated session well. pt stated she had difficulties completing showers because it "takes too much out of her" but is unwilling to take a shower with help from staff. pt when to fatigue with most exercises. P: continue POC
--- NOTE | 2018-02-05 15:47 | OT.PROG ---
Progress Note Progress Note: S: pt reports that she is tired, but was willing to go on downstairs for therapy. O: pt was seen in her room in the p.m. and had finished up with lunch. She completed LE dressing with use of clinical social work therapist with min A. She did stand and needed min A to ensure she did not fall as she had loss of balance. She then completed entire transfer downstairs with use of walker, taking no breaks. She completed 7 min on Ue arm bike to increase her activity tolerance. She then transferred iNd with use of walker to blue mat table. She completed dynamic sitting and standing activity. While standing we maintained CGA for safety but she had zero near falls. After finishing up OT she completed PT. A: pt may continue to benefit from therapy to increase activity tolerance. Continue to monitor her ADL's. P: continue per POC.
--- NOTE | 2018-02-05 16:03 | PT.PROG ---
Progress Note Progress Note: S: Bharati participated in OT prior to PT. Doing well this morning. O: Tx consisted of instruction in ther ex with BLE strengthening 10 x each of the following with 1# weights: marching, LAQ, HS curl, heel-toe raises, resisted hip abd, ball squeezes, STS. A: Pt participated well with PT exercises. Required v/c for safety awareness with STS. P: Continue per POC.
--- NOTE | 2018-02-05 16:54 | OTI REPORT ---
Thank you for the referral of Bharati Cochran. She was seen on 02/04/18 for an occupational therapy inpatient evaluation secondary to weakness. SUBJECTIVE: The patient is a 72-year-old female who is being seen secondary to weakness and overall functional difficulties. She did have a bowel obstruction. She lives at home with her and grandson. Prior to admission the patient was not super active, but she did do some of the cooking in the home and some of the cleaning. The patient does drive and sometimes does the grocery shopping. PAST MEDICAL HISTORY: Past medical history can be found in the patient's medical record. OBJECTIVE FINDINGS: General observations: The patient was in bed upon the therapist's arrival. Bed mobility: The patient was able to come from supine to sit independently. Range of motion: The patient had upper extremity range of motion that was within functional limits. Strength: Strength for shoulder flexion was 3+/5, abduction was 3+/5, elbow flexion/extension was 4/5, and wrist flexion/extension was 3+/5. Ambulation: The patient typically uses a wheeled walker to ambulate. Activities of daily living: The patient had difficulty dressing her lower extremities on the first attempt. She reports that dressing herself has been quite difficult to do. She was issued a material stress tester, a sock aide, and a bath sponge and demonstration was given. The patient practiced using the material stress tester and sock aide. She still needed min assist to use them but she thought that these would be a great idea, especially since her is going to have surgery within the next week. ASSESSMENT: Problem List: Decreased activity tolerance Decreased upper extremity strength Decreased ability to complete ADLs Decreased ability to complete functional transfers Short-Term Goals: To be met by discharge from inpatient: Patient will be able to dress self with use of adaptive devices independently. Patient will increase upper extremity strength to 4+/5 to increase strength for all functional transfers and ADLs. Patient will be able to stand x10 minutes while completing hygiene activities at the sink without loss of balance to improve activity tolerance. Long-Term Goals: To be met following discharge from inpatient: Patient will be discharged home, demonstrating independence and safety with all ADLs and functional transfers. TREATMENT PLAN: Patient will be seen B.I.D during the week and one time per day over the weekend as an inpatient to address the above goals and objectives. INITIAL TREATMENT: Treatment today consisted of the initial evaluation activities only. SB
[2018-02-05] MEDS: HYDROcodone-APAP 5 MG -325 MG TABLET PO PRN (19:59)
[2018-02-05] MEDS: ATORVASTATIN 40 MG TABLET PO SCH (20:00)
[2018-02-05] MEDS: ONDANSETRON 4 MG/2 ML VIAL IVP PRN (22:24)
[2018-02-06] MEDS: Prochlorperazine Edisylate Inj 10mg/2ml vial IV PRN (01:00)
[2018-02-06] MEDS: HYDROcodone-APAP 5 MG -325 MG TABLET PO PRN ×3 (02:20→13:34)
[2018-02-06] MEDS: LEVOTHYROXINE 50 MCG TABLET PO SCH (04:29)
[2018-02-06 04:56] LABS: BASOPHILS # (AUTO) 0.03 10*3/UL; BASOPHILS % (AUTO) 0.4 % (0-1); EOSINOPHILS # (AUTO) 0.08 10*3/UL; EOSINOPHILS % (AUTO) 1.2 % (0-8); Hematocrit [HCT] 38.1 % (37.0-47.0); LYMPHOCYTES # (AUTO) 2.73 10*3/uL; MEAN CORPUSCULAR HEMOGLOBIN 27.7 PG (27-31); MEAN CORPUSCULAR HGB CONC 31.5 g/dL (33-37); MEAN PLATELET VOLUME 11.1 FL (7.4-12.2); MONOCYTES # (AUTO) 0.73 10*3/UL (0.3-0.8); MONOCYTES % (AUTO) 10.5 % (5-15); NEUTROPHILS # (AUTO) 3.31 10*3/UL; NEUTROPHILS % (AUTO) 47.8 % (50-80); RED BLOOD COUNT 4.33 10^6/uL (4.20-5.40)
[2018-02-06 05:06] LABS: WBC MORPHOLOGY COMMENT NORMAL MORPHOLOGY (NORM)
[2018-02-06 05:07] LABS: PLATELET MORPHOLOGY COMMENT NORMAL MORPHOLOGY (NORM); RBC MORPHOLOGY COMMENT NORMAL MORPHOLOGY (NORM)
[2018-02-06 05:11] LABS: BLOOD UREA NITROGEN 12 mg/dL (7-22)
[2018-02-06] MEDS: GABAPENTIN 300 MG CAPSULE PO SCH ×2 (07:18→12:07)
[2018-02-06] MEDS: FUROSEMIDE 40 MG TABLET PO SCH ×2 (07:18→12:07)
--- NOTE | 2018-02-06 08:07 | PDOC(PROG) ---
Date of Service: 02/06/18 Time of Service: 08:00 Interval History: Subjective Patient said that she had the nausea last night but not today. She did have the multiple diarrhea stools according to her. She didn't tell me when was the last one. She is denying abdominal pain. Still passing gas. Objective : Data - Labs CBC and BMP: 02/06/18 04:35 02/06/18 04:35 Objective : Exam - General General Appearance: Cooperative, Morbidly Obese Additional General Exam Details: Looks tired - Head Head Exam: Normal Inspection - Eye Eye Exam: Normal Appearance - ENT ENT Exam: Normal Exam - Neck Neck Exam: Normal Inspection - Respiratory Respiratory Exam: Clear to Auscultation - Bilaterally - Cardiovascular Cardiovascular Exam: RRR, Systolic Murmur - GI/Abdominal GI/Abdominal Exam: Normal Bowel Sounds, Soft, No Organomegaly Additional GI/Abdominal Exam Details: There is no in the tenderness abdomen maybe a little bit distended compared to yesterday still soft. Nontender. Bowel sound present. - Rectal Rectal Exam: Deferred - External Exam: Deferred - Extremities Extremities Exam: Normal Inspection - Back Back Exam: Normal Inspection - Neurological Neurological Exam: Alert, Oriented x 3, CN II-XII Intact, No Facial Droop, Speech Intact / Clear, Moves All Extremities Equally - Psychiatric Psychiatric Exam: Normal Affect - Integumentary Integumentary Exam: Normal Color Assessment and Plan - Patient Problems (1) Partial small bowel obstruction Current Visit: Yes Status: Acute Comment: I think it's resolved. I think will advance her diet will see what happens during the day and then will decide about discharging her or keeping her another day. Code(s): K56.600 - Partial intestinal obstruction, unspecified as to cause (2) Crohn disease Current Visit: Yes Status: Chronic Comment: Continue mesalamine Code(s): K50.90 - Crohn's disease, unspecified, without complications Qualifiers: Gastrointestinal tract location: unspecified location Digestive disease complication type: without complication Qualified Code(s): K50.90 - Crohn's disease, unspecified, without complications (3) Chronic combined systolic and diastolic congestive heart failure Current Visit: Yes Status: Chronic Onset Date: 12/13/16 Comment: Continue diuretics. We'll cut back though on the potassium. Code(s): I50.42 - Chronic combined systolic (congestive) and diastolic ( congestive) heart failure (4) GERD (gastroesophageal reflux disease) Current Visit: Yes Status: Chronic Onset Date: 12/13/10 Comment: Continue Protonix Code(s): K21.9 - Gastro-esophageal reflux disease without esophagitis Qualifiers: Esophagitis presence: esophagitis presence not specified Qualified Code(s) : K21.9 - Gastro-esophageal reflux disease without esophagitis (5) Hypothyroidism Current Visit: Yes Status: Chronic Onset Date: 06/01/11 Comment: Same med Code(s): E03.9 - Hypothyroidism, unspecified Qualifiers: Hypothyroidism type: acquired Qualified Code(s): E03.9 - Hypothyroidism, unspecified (6) Type 2 diabetes mellitus without complication Current Visit: Yes Status: Chronic Onset Date: 07/02/16 Comment: Continue sliding scale Code(s): E11.9 - Type 2 diabetes mellitus without complications Qualifiers: Diabetes mellitus intermediate card tender insulin use: with intermediate card tender use Qualified Code( s): E11.9 - Type 2 diabetes mellitus without complications; Z79.4 - intermediate card tender ( current) use of insulin
[2018-02-06] MEDS: Spironolactone Tab 25 MG TAB PO SCH (08:27)
[2018-02-06] MEDS: FOLIC ACID 1 MG TABLET PO SCH (08:28)
[2018-02-06] MEDS: VENLAFAXINE XR 75 MG CAP PO SCH (08:28)
[2018-02-06] MEDS: ASPIRIN 325 MG TABLET PO SCH (08:29)
[2018-02-06] MEDS: LOSARTAN 50 MG TABLET PO SCH (08:29)
[2018-02-06] MEDS: MESALAMINE 500 MG CAPSULE PO SCH (08:29)
[2018-02-06] MEDS: CYANOCOBALAMIN (VITAMIN B-12) 1,000 MCG TABLET.ER PO SCH (08:30)
[2018-02-06] MEDS: ESCITALOPRAM 10 MG TABLET PO SCH (08:30)
[2018-02-06] MEDS: ISOSORBIDE MONONITRATE 30 MG SR 24H TABLET PO SCH (08:30)
[2018-02-06] MEDS: METOPROLOL SUCCINATE 25 MG SR 24H TABLET PO SCH (08:31)
[2018-02-06] MEDS: NYSTATIN 15 GM POWDER TOPICAL SCH ×2 (08:32→13:32)
[2018-02-06] MEDS: Insulin Lispro Flexpen 300 UNIT/3 ML INSULN.PEN SUBCUT SCH ×2 (08:32→12:01)
[2018-02-06] MEDS ORDERED: PANTOPRAZOLE 40 MG TABLET PO SCH (09:00)
[2018-02-06] MEDS ORDERED: POTASSIUM CHLORIDE 20 MEQ TAB PO SCH (09:00)
[2018-02-06] MEDS: TAMOXIFEN CITRATE 20 MG PO SCH (09:26)
[2018-02-06 11:13] VITALS: BP 143/73; RESP 20; TEMP 97; O2SAT 93
--- NOTE | 2018-02-06 12:23 | PT.PROG ---
Progress Note Progress Note: S: Bharati reports that she is doing well today. Participated in OT prior to PT. O: Tx consisted of instruction in ther ex with 2# weights on BLE's with 15 x - alt marching, LAQ, resisted HS curls, rows with green tband; 10 x STS with SBA x 1 for safety; standing balloon tap with CGA x 1 for 3 minutes before requiring seated rest break; standing 2 x 1 minute on airex with CGA x 1 for safety; nustep x 10 minutes. A: Bharati participated well with therapy and was able to tolerate increase in repetitions with exercises along with being able to stand for greater amount of time before requiring seated rest break. Difficulties with maintaining balance on airex and required CGA x 1 and SHAREPOINT WEB DEVELOPER x 1-2 on walker at times. P: Continue per POC.
--- NOTE | 2018-02-06 13:14 | OT.PROG ---
Progress Note Progress Note: Occupational Therapy S: Pt. reports that she is feeling much better this AM compared to last night. She reports that she wants to take a shower. O: Pt. was seen at 0900 for skilled occupational therapy session with a focus on functional tasks and ADL performance. Pt. ambulated to shower room, approximately 20', without the use of a walker to perform showering task. Pt. completed a seated showering task to include sit to stands with the use of grab bars with SBA, washing trunk and sachin area with SBA; pt. required mod. A to wash back and feet, however reports that she has a long handled bath sponge at home. Pt. was able to dry feet and back with min. and the rest of her body with SBA. She then donned brief with the use of a drilling field professional and SBA and a gown with set up assist. Pt. then ambulated back to her room and completed a toileting task with SBA and a standing grooming task X 3 min with SBA. A: Pt. required frequent rest breaks but overall tolerated therapy session well. She was able to perform showering task with no losses of balance in a similar set up compared to home. Pt. may benefit from continued skilled therapy to increase UE strength, dynamic standing balance, ADL performance and safety. P: Continue POC. RADHA English
--- NOTE | 2018-02-06 15:00 | DCSUMMARY ---
Hospitalization Summary Admit Date: 02/01/2018 Discharge Date: 02/06/18 Hospital Course: Discharge diagnoses 1. Partial small bowel obstruction resolved 2. History of diabetes on insulin 3. Obstructive sleep apnea on CPAP 4. Hyperlipidemia 5. Hypothyroidism 6. History of breast cancer status post surgery and chemotherapy with radiation 7. Depression 8. Hypertension 9. Abnormal stress test treated medically 10. Crohn's disease 11. Abdominal wall hernia 12. Cirrhosis of the liver Hospital course This is a 72 years old female with medical history significant for history of Crohn disease, hypertension, diabetes, hypothyroidism, hyperlipidemia, obstructive sleep apnea who presented to the hospital with history of diffuse abdominal pain that was getting progressively worse nausea and vomiting. CT scan in the ED showed no evidence of madie bowel obstruction. However there is mild dilatation of the proximal small bowel which may be related to incarceration of fat within the ventral hernia. Patient was admitted to the hospital by Dr. Francis please see his note. Patient was treated as a possible partial bowel obstruction was put on IV fluid and nothing by mouth. She was also was put on pain medication. Surgery was also consulted. She was treated conservatively I saw her the next day we continued the same plan. Then since there was no evidence of obstruction on the CT and she was feeling better we thought will give trial of for clear liquid that was done later on in the afternoon. the next day she said she is not feeling well she vomited multiple times overnight her abdomen was distended we put an NG tube had the CT enterography which showed partial small bowel obstruction. We gave her a trial also of conservative management with NG tube suction addition to fluids and the pain medication. Had repeat x-ray which showed improvement. Then we started on clear after we clamped the tube she was doing better. On the after clamping the NG out and keeping her on clear liquid she tolerated tito. we then advanced to full liquid and removed the NG. on the day of discharge she was feeling better denying symptoms of abdominal pain no nausea. She said she did have some nausea last night but not today. She has had some diarrhea. We advanced her diet started soft diet. I came in and check on her again in the afternoon still no abdominal pain no nausea tolerating diet without complaint. Abdomen not tender no distention, old chronic ventral hernia. So we thought we can discharge her home. Because of her history of Crohn's disease will book her for an out patient appointment with Dr. Andino. The partial bowel obstruction may be due to adhesion rather than Crohn's disease. There was no thickening of the small bowel on the CT enterography. Discharge instruction Diet regular Activity as started Medications Home Medications RX: Acetaminophen [Tylenol] 1,000 mg PO PRN PRN 11/14/11 [History Confirmed ] RX: Ipratropium [place] [Atrovent] 2 spr INASL 3-4XD PRN #1 bottle 06/29/13 [ History Confirmed 02/01/18] RX: Guaifenesin [Mucinex] 600 mg PO BID 10/07/16 [History Confirmed 02/01/18] insulin lispro (U-100) 100 unit/mL subcutaneous solution 0 - 12 unit SUBCUT AC HS #3 vial 03/11/17 [Rx Confirmed 02/01/18] losartan 100 mg tablet 100 mg PO QDAY #90 tab 04/05/17 [Rx Confirmed 02/01/18] mesalamine CR 500 mg capsule,controlled release 500 mg PO BID #180 cap 04/05/17 [Rx Confirmed 02/01/18] spironolactone 25 mg tablet 25 mg PO QAM #90 tab 04/09/17 [Rx Confirmed 02/01/18 ] venlafaxine ER 150 mg capsule,extended release 24 hr 150 mg PO QAM #90 cap 04/09 [Rx Confirmed 02/01/18] blood sugar diagnostic strips 1 strip MISCELLANEOUS QID #360 strip 04/16/17 [Rx Confirmed 02/01/18] magnesium oxide 250 mg tablet See Label Instructions PO BID tab 04/30/17 [ History Confirmed 02/01/18] nitroglycerin 0.4 mg sublingual tablet 0.4 mg SL Q5M PRN #20 tab 04/30/17 [Rx Confirmed 02/01/18] pantoprazole 40 mg tablet,delayed release 40 mg PO BID #180 tab 06/14/17 [Rx Confirmed 02/01/18] levothyroxine 150 mcg tablet 150 mcg PO QDAY #90 tab 08/09/17 [Rx Confirmed ] albuterol sulfate 2.5 mg/3 mL (0.083 %) solution for nebulization 2.5 mg CONTINUOUS NEBULIZATION Q4-6H PRN #120 vial 08/12/17 [Rx Confirmed 02/01/18] lancets 1 ea MISCELLANEOUS QID #360 ea 08/12/17 [Rx Confirmed 02/01/18] diclofenac 1 % topical gel 4 g TOPICAL QID #100 g 10/11/17 [Rx Confirmed ] furosemide 40 mg tablet 120 mg PO BID #540 tab 10/15/17 [Rx Confirmed 02/01/18] potassium chloride ER 20 mEq tablet,extended release(part/cryst) 60 meq PO BID # 540 tab 10/15/17 [Rx Confirmed 02/01/18] aspirin 325 mg tablet 325 mg PO QDAY tab 11/13/17 [History Confirmed 02/01/18] blood-glucose meter 1 ea MISCELLANEOUS QID #1 ea 11/13/17 [History Confirmed ] insulin glargine (U-100) 100 unit/mL subcutaneous solution 70 unit SUBCUT QHS vial 11/13/17 [History Confirmed 02/01/18] isosorbide mononitrate ER 30 mg tablet,extended release 24 hr 30 mg PO QDAY tab 11/13/17 [History Confirmed 02/01/18] metoprolol succinate ER 25 mg tablet,extended release 24 hr 25 mg PO QDAY #90 tab 11/13/17 [Rx Confirmed 02/01/18] tamoxifen 20 mg tablet 20 mg PO QDAY tab 11/13/17 [History Confirmed 02/01/18] gabapentin 300 mg capsule 300 mg PO DIRECTED #450 tab 12/30/17 [Rx Confirmed 02/01/18] RX: Atorvastatin Calcium 80 mg PO QHS 02/01/18 [History Confirmed 02/01/18] RX: Cyanocobalamin (Vitamin B-12) [B-12] 1,000 mcg PO DAILY 02/01/18 [History Confirmed 02/01/18] RX: Escitalopram Oxalate 10 mg PO DAILY 02/01/18 [History Confirmed 02/01/18] RX: Folic Acid 400 mcg PO DAILY 02/01/18 [History Confirmed 02/01/18] RX: Samantha Root 550 mg PO DAILY 02/01/18 [History Confirmed 02/01/18] RX: Lutein 6 mg PO DAILY 02/01/18 [History Confirmed 02/01/18] RX: Turmeric Root Extract [Turmeric] 500 mg PO DAILY 02/01/18 [History Confirmed 02/01/18] insulin syringe-needle U-100 0.5 mL 31 gauge x 5/16" 0.5 ml MISCELLANEOUS .ACHS PRN #360 ea 02/04/18 [Rx] insulin syringe-needle U-100 1 mL 31 x 3/8" See Dose Instructions .ROUTE .MEDSUPPLY #90 ea 02/04/18 [Rx] Follow-up with PCP in 1-2 weeks, follow-up with Dr. Andino in 1-2 weeks Condition at discharge was stable for discharge Exam - Vitals Vital Signs: Vital Signs Temperature 97 F Temperature Source Temporal Artery Scan Pulse Rate [Pulse Oximeter] 87 Pulse Rate 88 Respiratory Rate 20 Blood Pressure [Left Arm] 151/55 Blood Pressure [Left Radial 143/73 Artery] Blood Pressure 119/56 Pulse Ox 93 Oxygen Flow Rate 1 Oxygen Delivery Method Room Air Height 5 ft 1 in Weight 236 lb Patient Problems - Patient Problem List (1) Partial small bowel obstruction Status: Acute Code(s): K56.600 - Partial intestinal obstruction, unspecified as to cause Category: Medical (2) Crohn disease Status: Chronic Comment: Same medication Code(s): K50.90 - Crohn's disease, unspecified, without complications Qualifiers: Gastrointestinal tract location: unspecified location Digestive disease complication type: without complication Qualified Code(s): K50.90 - Crohn's disease, unspecified, without complications Category: Medical (3) Chronic combined systolic and diastolic congestive heart failure Status: Chronic Onset Date: 12/13/16 Code(s): I50.42 - Chronic combined systolic (congestive) and diastolic (congestive) heart failure Category: Medical (4) GERD (gastroesophageal reflux disease) Status: Chronic Onset Date: 12/13/10 Code(s): K21.9 - Gastro-esophageal reflux disease without esophagitis Qualifiers: Esophagitis presence: esophagitis presence not specified Qualified Code(s) : K21.9 - Gastro-esophageal reflux disease without esophagitis Category: Medical (5) Hypothyroidism Status: Chronic Onset Date: 06/01/11 Code(s): E03.9 - Hypothyroidism, unspecified Qualifiers: Hypothyroidism type: acquired Qualified Code(s): E03.9 - Hypothyroidism, unspecified Category: Medical (6) Type 2 diabetes mellitus without complication Status: Chronic Onset Date: 07/02/16 Code(s): E11.9 - Type 2 diabetes mellitus without complications Qualifiers: Diabetes mellitus fdc insulin use: with long term care administrator use Qualified Code( s): E11.9 - Type 2 diabetes mellitus without complications; 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
--- NOTE | 2018-02-06 15:04 | PT.PROG ---
Progress Note Progress Note: S: Patient states she just feels tired today, but she doesn't have any pain this afternoon. O: Patient completed LE strengthening exercises and ambulated 150 ft from the department to her room without requiring a rest break. She displays no SOB at this time. A: Patient tolerated all activity well today. She will benefit from continues skilled therapy to improve strength for return to function. P: Patient will be seen in outpatient physical therapy if deemed necessary upon discharge.
--- NOTE | 2018-02-06 16:19 | OT.PROG ---
Progress Note Progress Note: Occupational Therapy S: Pt. reports that she is doing well this afternoon. She is hoping to return home today. O: Pt. was seen at 1315 for skilled OT session with a focus on UE strengthening. Pt. completed bilateral UE strengthening in the form of UBE X 6 min., 2# shoulder flexion, 2# chest press, 2# biceps curls X 15 each. Pt. also completed RTB strengthening while seated unsupported on mat table for shoulder extension, triceps extension, biceps curls, horizontal abduction, rows X 15 each. Following occupational therapy session, pt. transitioned to physical therapy. A: Pt. tolerated UE strengthening well with frequent rest breaks. She is performing well with ADL tasks and functional mobility. P: Continue POC until d/c to home. NAY English/Jeremy
== END 2018-02-06 15:25 | disposition home or self-care (01) | DRG 389 ==
LOC: ER 06:35 → MED/SURG 06:35
PROVIDERS: ADMIT Family Medicine; ATTEND Family Medicine